=== PATIENT | female | born 1945 | race Caucasian/White ===

== ENCOUNTER → 2016-03-05 | Outpatient (CLI) | payer OTHER ==
[~2016-03-05] VITALS: Ht 154.9 cm; Wt 68.0 kg
[~2016-03-05] MED LIST: ACCURETIC 20-11 EACH PO; ACETAMINOPHEN325 M1 PO; AMBIEN 5 MG TABL5 MG PO; B-12250 MCG PO; CELEBREX PO; CLONIDINE0.1 PO; COLCHICINE 0.60.6 M1 PO; CYMBALTA60 MG PO; DETROL LA4 MG PO; ENABLEX15 MG PO; ENDOCET 7.5-321 EACH PO; FLONASE 0.05%50 MCG NASAL; HYDRALAZINE 5050 MG PO; IRON325 MG PO; KEFLEX250 MG PO; LAMICTAL 25 MG25 MG PO; LAMICTAL100 MG PO; LISINOPRIL20 MG PO; LOVAZA1000 MG PO; LYRICA25 MG PO; MELATONIN3 MG PO; MINOXIDIL2.5 MG PO; MS CONTIN15 MG PO; MULTIVITAMINS1 EAC7 PO; MYRBETRIQ50 MG PO; OPANA ER5 M1 PO; OXYCONTIN10 M1 PO; OXYCONTIN10 MG PO; PREDNISONE 1 MG1 M1 PO; PROTONIX40 M2 PO; TOPROL XL25 MG PO; TRICOR145 MG PO; VITAMIN D-32000 UNIT PO; VOLTAREN GEL 1100 G1 TOP; ZETIA10 MG PO
--- NOTE | ~2016-03-05 | HPC ---
[facility] [place] [address] PAIN MANAGEMENT CONSULTATION Name: SABIHA CASTELLANOS Room #: REG FRANKIE Melvina#: [id number] Admission: 03/05/16 Attend Phys: Marquise Robbins DO Discharge: Date of : 46 Report #: [id number] THIS REPORT FOR: //name// CC: Rusty Robbins DATE OF SERVICE: 03/05/2016 The patient is delightful 70-year-old female typically treated for bilateral (bipedal) neuropathic pain, component of DJD affecting knees requiring complex medication management. She has been remarkably stable on baseline medication including OxyContin 10 mg b.i.d. and Lyrica 25 mg at at bedtime. At last visit 12/29/2015, we continued the patient on baseline medication. Returns to pain clinic today. We did have moderately prolonged visit from 12:50-13:20 reviewing recent issues. She had fallen recently, she is legally blind and had simply opened a drawer, turned around and forgot about the drawer, tripped over. She unfortunately had some significant trauma contacting her left hip, leg and shoulder. While she did fall to the ground, she had a significant twisting injury secondary to a "near fall" and has mostly muscle thigh pain. She is very sensitive to multiple medications including CYMBALTA, STATINS, CODEINE, INDOMETHACIN, FENTANYL and PLAVIX. She tells me she has tried tizanidine in the past with some untoward events, but she is not sure what it was. She notes pain is modestly elevated today. Rates it a 5 on a 0-10 visual analog scale again noting a chronic bipedal neuropathy and ongoing left hip and upper back pain. She notes she did have a prior slight exacerbation of her chronic sciatica for which she had increased her prednisone. She does take Cymbalta on a daily basis. Prednisone she has the ability to flex, currently taking 2 mg tablets 1 in the morning, 1 at evening, she had increase this to up to 10 mg recently and had weaned back down. PHYSICAL EXAMINATION: Shows 70-year-old female. As noted, she is legally blind. She does have some focal small visual field. BMI is 28.4 kilograms per meter squared. Blood pressure is modestly elevated 160/77, pulse 67, respirations are 14. Hyperpathia about the lower extremities. Dorsiflexion, plantarflexion is limited. Lower extremity extension is limited. Hip flexion on the left exacerbates axial back pain, primarily in the left flank area, also has some left gluteal pain. Gait is modestly antalgic, somewhat ataxic. Diffuse tenderness across the low back. ASSESSMENT: Chronic bipedal neuropathy, degenerative joint disease affecting knees requiring complex medication management, acute exacerbation of axial back pain with a component of muscle spasm. [address] [address] PAIN MANAGEMENT CONSULTATION Name: SABIHA CASTELLANOS Room #: REG FRANKIE Hein#: [id number] Admission: 03/05/16 Attend Phys: Marquise Robbins DO Discharge: Date of : 46 Report #: [id number] RECOMMENDATIONS: We talked about muscle relaxants though she is sensitive to some of the medications, has failed multiple muscle relaxants in the past. We elected to simply continue baseline medication unchanged including a prior prescribed Cymbalta and prednisone. I will continue OxyContin 10 mg b.i.d. Follow up in 2 months for reevaluation. We reviewed the fact that opiate medications are being used to provide analgesia adequate to support activities of daily living, not attempting to achieve a specific pain score on the 0-10 Visual Analog Scale. The current opiate medications are providing sufficient analgesia to allow the patient to participate in activities of daily living. The patient is not exhibiting any aberrant behavior suggestive of drug diversion. The patient is not having any adverse reactions to medications. The patient is not suffering from daytime somnolence or mental acuity changes. The patient is managing opiate-induced constipation with appropriate bnfy-kbd-stzrozu agents and dietary considerations. The patient was counseled on concern for caution with operating a motor vehicle while using opiate medications. A physical exam was performed and the patient's functional status was evaluated. All patients with back pain were advised against the bed rest greater than 4 days and were advised to return to normal activities. Pain score assessment was noted and the treatment plan was reviewed with the patient. All current medications, both prescribed and OTC were reviewed and reconciled on the electronic medical record. Tobacco screening was accomplished and smoking cessation was advised when indicated. BMI was noted and diet/exercise modification was recommended for all patients following outside normal parameters. I reviewed with the patient today their responsibilities to safeguard prescription medications, reviewed their responsibility to utilize medications only as prescribed by the physician. They are to seek and receive pain medications only from 1 physician group ([facility]). They are to use 1 pharmacy and keep the clinic informed if they change pharmacies. Their responsibilities include making followup visits in a timely fashion and to avoid abrupt discontinuation of medication usage. Their responsibilities further include bringing their medications (bottles from the pharmacy with residual pills) to the visit for possible confirmation of pill counts and the patient understands it is their responsibility to submit to random drug screens to ensure both that the medications prescribed are present, and that no other controlled substances are present. All prescriptions provided today were generated electronically. [address] [place] [address] PAIN MANAGEMENT CONSULTATION Name: SABIHA CASTELLANOS Room #: REG FRANKIE Hein#: [id number] Admission: 03/05/16 Attend Phys: Marquise Robbins DO Discharge: Date of : 46 Report #: [id number] Discharged in good and stable condition after prolonged visit from 12:50-13:20; greater than 50% of 30-minute visit was spent counseling the patient. <ELECTRONICALLY SIGNED> By: Marquise Robbins DO 03/12/16 0858 1627 1856 Marquise Robbins DO /nt
[2016-03-05 12:43] VITALS: BP 160/77
== END | disposition home or self-care (01) ==
LOC: PAIN 06:49
DX: M17.0 Bilateral primary osteoarthritis of knee (principal); M54.9 Dorsalgia, unspecified; M62.838 Other muscle spasm; M79.7 Fibromyalgia; M19.90 Unspecified osteoarthritis, unspecified site

== ENCOUNTER → 2016-06-28 | Outpatient (CLI) | payer OTHER ==
[~2016-06-28] VITALS: Ht 154.9 cm; Wt 70.3 kg
[~2016-06-28] MED LIST changes: +PREDNISONE 5 MG5 MG PO
--- NOTE | ~2016-06-28 | HPC ---
[facility] [place] [address] [place] [address] PAIN MANAGEMENT CONSULTATION Name: SABIHA CASTELLANOS Room #: REG [facility] Melvina#: [id number] Admission: 06/28/16 Attend Phys: Marquise Robbins DO Discharge: Date of : 46 Report #: [id number] THIS REPORT FOR: //name// CC: Rusty Robbins The patient is a delightful 70-year-old female being treated for bilateral lower extremity peripheral neuropathy with a burning sensation in her feet. She requires complex medication management. She has been stable for quite some time on OxyContin 10 mg b.i.d. Lyrica very low dose at 25 mg at bedtime. Last seen in the pain clinic 05/04/2016. Last urine drug screen was approximately 1 year ago. Returns to pain clinic today. She had some acute right ankle pain in the interval since we last saw her. Interestingly, she had some left (contralateral) foot pain due to ankle strain at the last visit. Ultimately, right ankle required workup with orthopedist, who did order a CT of the ankle. This did note concern for a stress fracture. The patient has a followup appointment with the orthopedist next week. She notes that they talked about "bone spur" on her foot. I did spend some time today talking about bone spurs in general. Many people have been typically, they are not painful. If we can avoid surgery, certainly encourage that. She has a history of RSD and we are concerned that surgery may exacerbate the RSD. Discussion with the patient today about therapeutic options, she is doing well on current medications. We have elected to simply continue OxyContin 10 mg b.i.d., Voltaren gel topically, Lyrica at bedtime. We reviewed the fact that opiate medications are being used to provide analgesia adequate to support activities of daily living, not attempting to achieve a specific pain score on the 0-10 Visual Analog Scale. The current opiate medications are providing sufficient analgesia to allow the patient to participate in activities of daily living. The patient is not exhibiting any aberrant behavior suggestive of drug diversion. The patient is not having any adverse reactions to medications. The patient is not suffering from daytime somnolence or mental acuity changes. The patient is managing opiate-induced constipation with appropriate uyuu-lwt-nwpmiif agents and dietary considerations. The patient was counseled on concern for caution with operating a motor vehicle while using opiate medications. A physical exam was performed and the patient's functional status was evaluated. All patients with back pain were advised against the bed rest greater than 4 days and were advised to return to normal activities. Pain score assessment was noted and the treatment plan was reviewed with the patient. All current medications, both prescribed and OTC [place] [address] PAIN MANAGEMENT CONSULTATION Name: SABIHA CASTELLANOS Room #: REG CLMarques Hein#: [id number] Admission: 06/28/16 Attend Phys: Marquise Robbins DO Discharge: Date of : 46 Report #: [id number] electronic medical record. Tobacco screening was accomplished and smoking cessation was advised when indicated. BMI was noted and diet/exercise modification was recommended for all patients following outside normal parameters. I reviewed with the patient today their responsibilities to safeguard prescription medications, reviewed their responsibility to utilize medications only as prescribed by the physician. They are to seek and receive pain medications only from 1 physician group ( [facility]). They are to use 1 pharmacy and keep the clinic informed if they change pharmacies. Their responsibilities include making followup visits in a timely fashion and to avoid abrupt discontinuation of medication usage. Their responsibilities further include bringing their medications (bottles from the pharmacy with residual pills) to the visit for possible confirmation of pill counts and the patient understands it is their responsibility to submit to random drug screens to ensure both that the medications prescribed are present, and that no other controlled substances are present. All prescriptions provided today were generated electronically. We asked the patient for urine drug screen today. She could not avoid. Again, very low index for suspicion for diversion. Simply trying to comply with an opiate consent to treat contract. We will get a urine drug screen at next visit. Discharged in good and stable condition. <ELECTRONICALLY SIGNED> By: Marquise Robbins DO 06/29/16 1308 0705 0821 Marquise Robbins DO /nt
[2016-06-28 13:28] VITALS: BP 127/69
== END | disposition home or self-care (01) ==
LOC: PAIN 07:28
DX: G62.9 Polyneuropathy, unspecified (principal); M25.571 Pain in right ankle and joints of right foot; M19.90 Unspecified osteoarthritis, unspecified site; M79.7 Fibromyalgia

== ENCOUNTER → 2016-08-09 | Outpatient (CLI) | payer OTHER ==
[~2016-08-09] VITALS: Ht 154.9 cm; Wt 72.1 kg
--- NOTE | ~2016-08-09 | HPC ---
[facility] [place] [address] [place] [address] PAIN MANAGEMENT CONSULTATION Name: SABIHA CASTELLANOS Room #: REG [facility].#: [id number] Admission: 08/09/16 Attend Phys: Marquise Robbins DO Discharge: Date of : 46 Report #: [id number] THIS REPORT FOR: //name// CC: Rusty Robbins The patient is a 71-year-old female well known to the pain clinic, being treated for neuropathic pain, bilateral feet requiring complex medication management, last seen in pain clinic 2 months ago. She had a stress fracture in her right foot with some exacerbation of pain. This was treated conservatively with nonweightbearing for several weeks and it has resolved. She is actually doing reasonably well at present. Notes her pain is generally well controlled, rates it at 2 on a 0-10 visual analog scale. She does note; however, recently she is having some increasing sedation. No other changes in medications. Physical exam shows a 71-year-old female, BMI is 30.1 kilograms per meter squared. Blood pressure is 137/68, pulse is 69, respirations of 15. Alert and oriented to person, place and time, judged to be a reasonable historian. Cranial nerves 2-12 are grossly intact, though she has profound decreased visual acuity. Upper extremity strength is preserved. Gait is modestly antalgic, uses a walker. Hyperpathia, allodynia about both feet and lower extremities. History of spina bifida, polio, arthritis, and fibromyalgia. Medication list was reviewed and reconciled, has been stable on Lyrica, extremely low dose 25 mg at bedtime, uses prednisone 5 mg b.i.d. for some chronic arthritic issues. She is osteoporotic and uses Prolia; gastroesophageal reflux for which she takes Protonix; hypertension for which she takes lisinopril and metoprolol along with hydralazine. We are using some Voltaren gel topically, she uses this sparingly, does not require prescription for same. Tricor for dyslipidemia and Lamictal for seizure disorder. We reviewed the opiate consent to treat contract, the patient has not had a urine drug screen in some time. She kindly gave us a urine screen today. No aberrant behavior suggestive for drug diversion, simply complying with our opiate consent to treat contract. ASSESSMENT: Symptomatic neuropathic pain, bilateral feet requiring complex medication management, stable on baseline medications. RECOMMENDATIONS: 1. As noted above, urine drug screen today. 2. Continue low dose oxycodone (OxyContin 10 mg b.i.d. I have taken the liberty of writing for 2 months of current medication, continue Voltaren gel topically rarely use p.r.n. and Lyrica 25 mg at bedtime. She does not require prescriptions for either of the latter 2 medications. The patient is going to follow up with Dr. Aviles. Actually, she has an [address] [address] PAIN MANAGEMENT CONSULTATION Name: SABIHA CASTELLANOS Room #: REG FRANKIE Hein#: [id number] Admission: 08/09/16 Attend Phys: Marquise Robbins DO Discharge: Date of : 46 Report #: [id number] appointment for tomorrow. I did ask that if she has any lab work, forward it to us. Again, no changes in medication likely responsible for her increasing sedation. Physical exam is fairly unremarkable at this time, may be a component of adrenal suppression due to assisted opiate use (again fairly low dose at 30 mg of morphine equivalence a day), may be other abnormalities including hypothyroidism. The patient was discharged in good and stable condition. We had a moderately prolonged visit today seen from 12:43 to 13:10. Discharged in good and stable condition after a 25+ minute visit, greater than 50% of time spent counseling the patient. <ELECTRONICALLY SIGNED> By: Marquise Robbins DO 08/13/16 0856 1259 1846 Marquise Robbins DO /nt
[2016-08-09 12:40] VITALS: BP 137/68
== END | disposition home or self-care (01) ==
LOC: PAIN 06:43
DX: M79.672 Pain in left foot (principal); M79.671 Pain in right foot; M19.90 Unspecified osteoarthritis, unspecified site; M79.7 Fibromyalgia; I10 Essential (primary) hypertension; K21.9 Gastro-esophageal reflux disease without esophagitis; E78.5 Hyperlipidemia, unspecified; G40.909 Epilepsy, unspecified, not intractable, without status epilepticus; Z98.890 Other specified postprocedural states; Z88.8 Allergy status to other drugs, medicaments and biological substances; Z86.12 Personal history of poliomyelitis; Z79.899 Other long term (current) drug therapy

== ENCOUNTER → 2016-10-25 | Outpatient (CLI) | payer OTHER ==
[~2016-10-25] VITALS: Ht 154.9 cm; Wt 71.7 kg
[~2016-10-25] MED LIST changes: +CLIMARA1 EAC3
--- NOTE | ~2016-10-25 | HPC ---
[facility] [place] [address] [place] [address] PAIN MANAGEMENT CONSULTATION Name: SABIHA CASTELLANOS [facility] [id number] Admission: 10/25/16 Attend Phys: Marquise Robbins DO Discharge: Date of : 46 Report #: [id number] THIS REPORT FOR: //name// CC: Rusty Robbins The patient is a 71-year-old female, long known to pain clinic, being treated for RSD of right lower extremity neuropathic pain requiring complex medication management. She has been stable on baseline medications for quite some time. Last urine drug screen on 08/09/2016 was positive for prescribed medications. She uses OxyContin 10 mg b.i.d. with Lyrica 25 mg at bedtime. Returns to pain clinic today. Long discussion with the patient today, she prior had right lower extremity shingles long time ago. She tells me she did have a new outbreak of shingles on the contralateral side in a different distribution. It appears to be more in the left L1. Fortunately, there are no sequelae here. She was treated with appropriate antivirals. She does, however, have some paresthesia and a feeling of bugs crawling on the right lower leg lateral aspect, this is the area where her initial shingles outbreak had been many years ago. Does have RSD in the right foot, but again this has been quite stable. PHYSICAL EXAMINATION: Today is relatively unchanged, a 71-year-old female, legally blind. BMI is 29.9 kg/m2. Vital signs are stable. Rises from chair using armrest. Gait is a little bit antalgic and somewhat ataxic. Again, the patient is blind. I detect no obvious lesions in the area of her most recent distribution of shingles (left L1). She does have a little bit of cosmetic defect at the base of her spine over her old spina bifida. Does have some paresthesia and loss of 2-point discrimination at the lateral aspect of the right leg. We discussed her RSD and neuropathic pain concerns with what appears to be a little exacerbation of the initial shingles in the right L4 distribution, suggest the patient consider increasing Lyrica. She lives in a nursing home facility where they distribute her medications. I have elected to write for a flexible dose of her Lyrica 25 mg 1 or 2 tablets at bedtime. She can go back and forth with the dosing as needed if it causes untoward cognitive changes with simply continuing with 25 mg. If it does not afford any increased relief of paresthesia in the right lower extremity, we will go back to 25 as well. Otherwise, continue the OxyContin unchanged. I have taken the liberty of writing for 2 months of current medications. Discharged in good and stable condition, today is actually a little bit of a longer visit with the patient today discussing interval health changes including the acute exacerbation of left L1 shingles. Seen for approximately 25 minutes, [address] [address] PAIN MANAGEMENT CONSULTATION Name: SABIHA CASTELLANOS Room #: REG Marques Hein#: [id number] Admission: 10/25/16 Attend Phys: Marquise Robbins DO Discharge: Date of : 46 Report #: [id number] discharged in good and stable condition. Greater than 50% of the 25-minute visit was spent in counseling the patient. By: [id number] Marquise Robbins DO /nt
[2016-10-25 12:58] VITALS: BP 137/68
== END | disposition home or self-care (01) ==
LOC: PAIN 07:33
DX: G90.521 Complex regional pain syndrome I of right lower limb (principal); Z79.899 Other long term (current) drug therapy

== ENCOUNTER → 2016-12-20 | Outpatient (CLI) | payer OTHER ==
[~2016-12-20] VITALS: Ht 154.9 cm; Wt 70.8 kg
[~2016-12-20] MED LIST changes: +CARAFATE 1 GM TA1 G1 PO
--- NOTE | ~2016-12-20 | HPC ---
[facility] [address] [place] [address] PAIN MANAGEMENT CONSULTATION Name: SABIHA CASTELLANOS Room #: REG Marques Hein#: [id number] Admission: 12/20/16 Attend Phys: Marquise Robbins DO Discharge: Date of : 46 Report #: [id number] THIS REPORT FOR: //name// CC: Rusty Robbins DATE OF SERVICE: 12/20/2016 The patient is a 71-year-old female being treated for RSD, bilateral lower extremities, right greater than left, requiring high-risk complex medication management. She has been stable for quite some time on Lyrica 25 mg at bedtime and OxyContin 10 mg b.i.d. Last visit, 10/25/2016. She had what she said chronic right L4-L5 shingles, although she had somewhat of a new presentation of left L1 shingle and this fortunately resolved. Returns to pain clinic today, noting that medications generally are providing sufficient analgesia to participate in activities of daily living. Primary concern is she is having significant gastroesophageal reflux. She follows with Dr. 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 She was a little hesitant to move forward, concerned about postoperative pain. We had a long discussion today about pain management. She has been stable on OxyContin 10 mg b.i.d. I think for breakthrough pain, oxycodone 5 mg 3-4 times a day would certainly be reasonable, and I strongly encouraged her to follow through with her organisational psychologist's suggestions. We will be happy to assist with postoperative management if needed. We reviewed the fact that opiate medications are being used to provide analgesia adequate to support activities of daily living, not attempting to achieve a specific pain score on the 0-10 Visual Analog Scale. The current opiate medications are providing sufficient analgesia to allow the patient to participate in activities of daily living. The patient is not exhibiting any aberrant behavior suggestive of drug diversion. The patient is not having any adverse reactions to medications. The patient is not suffering from daytime somnolence or mental acuity changes. The patient is managing opiate-induced constipation with appropriate rkas-uxf-rncltsi agents and dietary considerations. The patient was counseled on concern for caution with operating a motor vehicle while using opiate medications. A physical exam was performed and the patient's functional status was evaluated. All patients with back pain were advised against the bed rest greater than 4 days and were advised to return to normal activities. Pain score assessment was noted and the treatment plan was reviewed with the patient. All current medications, both prescribed and OTC were reviewed and reconciled on the [address] [address] PAIN MANAGEMENT CONSULTATION Name: SABIHA CASTELLANOS Room #: REG [facility] Melvina#: [id number] Admission: 12/20/16 Attend Phys: Marquise Robbins DO Discharge: Date of : 46 Report #: [id number] electronic medical record. Tobacco screening was accomplished and smoking cessation was advised when indicated. BMI was noted and diet/exercise modification was recommended for all patients following outside normal parameters. I reviewed with the patient today their responsibilities to safeguard prescription medications, reviewed their responsibility to utilize medications only as prescribed by the physician. They are to seek and receive pain medications only from 1 physician group ( [facility]). They are to use 1 pharmacy and keep the clinic informed if they change pharmacies. Their responsibilities include making followup visits in a timely fashion and to avoid abrupt discontinuation of medication usage. Their responsibilities further include bringing their medications (bottles from the pharmacy with residual pills) to the visit for possible confirmation of pill counts and the patient understands it is their responsibility to submit to random drug screens to ensure both that the medications prescribed are present, and that no other controlled substances are present. All prescriptions provided today were generated electronically. ASSESSMENT: Reflex sympathetic dystrophy, bilateral lower extremities, right greater than left. History of myofascial-type pain syndrome, requiring high-risk complex medication management, now management compounded by co-diagnosis of Liu esophagitis. We spent about 25 minutes today reviewing current issues and concerns and discussing therapeutic options moving forward. The patient was seen from 1318 to 5. Discharged in good and stable condition. I have elected to continue baseline medication unchanged, OxyContin 10 mg b.i.d. and Lyrica 25 mg at bedtime. We will have her simply followup in 2 months for reevaluation. I will be happy to see her on an as needed basis if she moves forward with Liu esophagitis surgery, though she is leaning towards simply having a repeat upper gastrointestinal in 3 months. <ELECTRONICALLY SIGNED> By: Marquise Robbins DO 12/21/16 0654 1533 0051 Marquise Robbins DO /nt
[2016-12-20 12:56] VITALS: BP 124/63
== END ==
LOC: PAIN 07:50
DX: G90.523 Complex regional pain syndrome I of lower limb, bilateral (principal)

== ENCOUNTER → 2017-02-08 | Outpatient (CLI) | payer OTHER ==
[~2017-02-08] VITALS: Ht 154.9 cm; Wt 71.2 kg
[~2017-02-08] MED LIST changes: +OXYCODONE H5 MG/5 ML PO
--- NOTE | ~2017-02-08 | HPC ---
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 She has had chronic shingles, right L4-L5. She has RSD bilateral lower extremities, right greater than left foot. She has been stable on very low dose OxyContin 10 mg b.i.d. with rare oxycodone 5 mg p.r.n. 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 Carpenter. Today, we did discuss at length concerns for post-procedure pain. Ultimately, OxyContin is a fairly small tablet, so I think she can continue with this. We have elected to trial short course of an oxycodone elixir 5 mg per 5 mL. Suggest a 3-5 mL t.i.d. for breakthrough pain. I have generated a prescription for 150 mL. We have also continued her OxyContin 10 mg b.i.d. for another 2 months. If following the Liu's esophagitis (procedure is for early March), she is unable to make her March appointment, I will be happy to simply leave a 30-day prescription for OxyContin 10 mg b.i.d. at the desk for her significant other to merchandise pickup/receiving associate. PHYSICAL EXAMINATION: Today is otherwise unchanged, pleasant 71-year-old female, alert and oriented to person, place and time, judged to be a reasonable historian, last random drug screen 08/09/2016 was positive for prescribed medications. BMI is 29.7 kilograms per meter squared. Vital signs stable as noted in the EMR. Rises from chair using armrest, modestly antalgic gait. She is legally blind. We reviewed the fact that opiate medications are being used to provide analgesia adequate to support activities of daily living, not attempting to achieve a specific pain score on the 0-10 Visual Analog Scale. The current opiate medications are providing sufficient analgesia to allow the patient to participate in activities of daily living. The patient is not exhibiting any aberrant behavior suggestive of drug diversion. The patient is not having any adverse reactions to medications. The patient is not suffering from daytime somnolence or mental acuity changes. The patient is managing opiate-induced constipation with appropriate jmot-fpy-sajvzbh agents and dietary considerations. The patient was counseled on concern for caution with operating a motor vehicle while using opiate medications. A physical exam was performed and the patient's functional status was evaluated. All patients with back pain were advised against the bed rest greater than [address] [address] PAIN MANAGEMENT CONSULTATION Name: JASMINSABIHA Room #: REG [facility] Melvina#: [id number] Admission: 02/08/17 Attend Phys: Marquise Robbins DO Discharge: Date of : 46 Report #: [id number] days and were advised to return to normal activities. Pain score assessment was noted and the treatment plan was reviewed with the patient. All current medications, both prescribed and OTC were reviewed and reconciled on the electronic medical record. Tobacco screening was accomplished and smoking cessation was advised when indicated. BMI was noted and diet/exercise modification was recommended for all patients following outside normal parameters. I reviewed with the patient today their responsibilities to safeguard prescription medications, reviewed their responsibility to utilize medications only as prescribed by the physician. They are to seek and receive pain medications only from 1 physician group ( [facility]). They are to use 1 pharmacy and keep the clinic informed if they change pharmacies. Their responsibilities include making followup visits in a timely fashion and to avoid abrupt discontinuation of medication usage. Their responsibilities further include bringing their medications (bottles from the pharmacy with residual pills) to the visit for possible confirmation of pill counts and the patient understands it is their responsibility to submit to random drug screens to ensure both that the medications prescribed are present, and that no other controlled substances are present. All prescriptions provided today were generated electronically. <ELECTRONICALLY SIGNED> By: Marquise Robbins DO 02/13/17 0808 [id number] [id number] Marquise Robbins DO /nt
[2017-02-08 12:51] VITALS: BP 125/63
== END ==
LOC: PAIN 07:02
DX: G90.523 Complex regional pain syndrome I of lower limb, bilateral (principal); M79.2 Neuralgia and neuritis, unspecified

== ENCOUNTER → 2017-03-28 | Outpatient (CLI) | payer OTHER ==
[~2017-03-28] VITALS: Ht 154.9 cm; Wt 69.9 kg
[~2017-03-28] MED LIST changes: +AZO BLADDER CO300 MG PO; +NORVASC5 MG PO
--- NOTE | ~2017-03-28 | HPC ---
[facility] [place] [address] PAIN MANAGEMENT CONSULTATION Name: SABIHA CASTELLANOS Room #: [facility] [id number] Admission: 03/28/17 Attend Phys: Marquise Robbins DO Discharge: Date of : 46 Report #: [id number] THIS REPORT FOR: //name// CC: Rusty Robbins The patient is a 71-year-old female, long treated for symptomatic neuropathic pain, bilateral feet requiring high risk complex medication management. Last seen in pain clinic 02/08/2017, continued on baseline medication including low dose Lyrica 25 mg at bedtime, higher doses have caused cognitive impairment. OxyContin 10 mg b.i.d. She has done well with this current medication. 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 Torres. Concerned that she may have some increased pain. We suggested oxycodone elixir as she was having trouble swallowing. I did give her that prescription. She is planning on proceeding with that procedure next week. Last random drug screen 07/30/2016 was positive for prescribed medications. We reviewed the fact that opiate medications are being used to provide analgesia adequate to support activities of daily living, not attempting to achieve a specific pain score on the 0-10 Visual Analog Scale. The current opiate medications are providing sufficient analgesia to allow the patient to participate in activities of daily living. The patient is not exhibiting any aberrant behavior suggestive of drug diversion. The patient is not having any adverse reactions to medications. The patient is not suffering from daytime somnolence or mental acuity changes. The patient is managing opiate-induced constipation with appropriate okua-tvg-hezgyxz agents and dietary considerations. The patient was counseled on concern for caution with operating a motor vehicle while using opiate medications. A physical exam was performed and the patient's functional status was evaluated. All patients with back pain were advised against the bed rest greater than 4 days and were advised to return to normal activities. Pain score assessment was noted and the treatment plan was reviewed with the patient. All current medications, both prescribed and OTC were reviewed and reconciled on the electronic medical record. Tobacco screening was accomplished and smoking cessation was advised when indicated. BMI was noted and diet/exercise modification was recommended for all patients following outside normal parameters. I reviewed with the patient today their responsibilities to safeguard prescription medications, reviewed their responsibility to utilize medications only as prescribed by the physician. They are to seek and receive pain medications only from 1 physician group ( [facility]). They are to use 1 pharmacy and keep the clinic informed if they change pharmacies. Their [address] [address] PAIN MANAGEMENT CONSULTATION Name: SABIHA CASTELLANOS Room #: REG Mar[facility] Hein#: [id number] Admission: 03/28/17 Attend Phys: Marquise Robbins DO Discharge: Date of : 46 Report #: [id number] responsibilities include making followup visits in a timely fashion and to avoid abrupt discontinuation of medication usage. Their responsibilities further include bringing their medications (bottles from the pharmacy with residual pills) to the visit for possible confirmation of pill counts and the patient understands it is their responsibility to submit to random drug screens to ensure both that the medications prescribed are present, and that no other controlled substances are present. All prescriptions provided today were generated electronically. The patient returns to pain clinic today noting that neuropathic pain continues to be problematic, but well controlled with current medication. She does have a new complaint. Having ongoing radicular symptoms of neck, right shoulder and arm. It has actually been going on for a couple of months, seems to be getting worse. She has tried conservative therapy without efficacy. PHYSICAL EXAMINATION: Shows BMI of 29.1 kilograms per meter squared. Cervical range of motion is modestly limited. Positive Lhermitte's, radicular symptoms radiating into the right arm and shoulder, slight decreased right triceps strength, paresthesia in the C7-C8 distribution. She has not fallen in the last 3 months. She does use a walker. She is hypertensive, medicines were reconciled today. Opiate consent to treat contract was signed 11/03/2015. The patient does not use tobacco products. The patient has an MRI scheduled from Dr. Aviles of cervical spine next week. ASSESSMENT: 1. Symptomatic neuropathic pain, bilateral feet requiring high risk complex medication management, stable on baseline medication. Continue current medication unchanged, OxyContin 10 mg b.i.d. with Lyrica 25 mg at bedtime. 2. Acute exacerbation of cervical radiculopathy. RECOMMENDATION: We will seek authorization for cervical epidural injection under fluoroscopy next visit. Correlate with MRI findings. In total, the patient was seen for greater than 25 minutes, greater than 50% of this time spent counseling the patient. <ELECTRONICALLY SIGNED> By: Marquise Robbins DO 04/01/17 0715 0946 [id number] Marquise Robbins DO /nt
[2017-03-28 12:41] VITALS: BP 125/65
== END ==
LOC: PAIN 06:50
DX: M79.671 Pain in right foot (principal); M79.672 Pain in left foot; M54.12 Radiculopathy, cervical region; Z79.899 Other long term (current) drug therapy

== ENCOUNTER → 2017-04-29 | Outpatient (CLI) | payer OTHER ==
[~2017-04-29] VITALS: Ht 154.9 cm; Wt 68.8 kg
--- NOTE | ~2017-04-29 | HPC ---
[facility] [address] [place] [address] PAIN MANAGEMENT CONSULTATION Name: SABIHA CASTELLANOS Room #: REG [facility] Melvina#: [id number] Admission: 04/29/17 Attend Phys: Marquise Robbins DO Discharge: Date of : 46 Report #: [id number] THIS REPORT FOR: //name// CC: Rusty Robbins HISTORY OF PRESENT ILLNESS: The patient is a pleasant 71-year-old female typically treated for bipedal neuropathy, requiring complex medication management. At last visit on 03/28/2017, she was having ongoing radicular symptoms and we sought authorization for cervical epidural injection under fluoroscopy. MRI of cervical spine from 04/02/2017 notes neural foraminal narrowing bilaterally at C5-C6 with right greater than left neural foraminal narrowing at C6-C7. ASSESSMENT: Symptomatic cervical radiculopathy by clinical exam and history. The patient with ongoing bipedal neuropathy, stable with low dose of Lyrica 25 mg at bedtime and oxycodone extended release 10 mg b.i.d. 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 ASSESSMENT: Symptomatic cervical radiculopathy by clinical exam and history, ongoing cervical radicular symptoms with right C7 radicular paresthesia. RECOMMENDATION: Proceed with epidural injection under fluoroscopy today. I did renew the patient's complex medication management including OxyContin 10 mg b.i.d. and Lyrica 25 mg at bedtime. We reviewed the fact that opiate medications are being used to provide analgesia adequate to support activities of daily living, not attempting to achieve a specific pain score on the 0-10 Visual Analog Scale. The current opiate medications are providing sufficient analgesia to allow the patient to participate in activities of daily living. The patient is not exhibiting any aberrant behavior suggestive of drug diversion. The patient is not having any adverse reactions to medications. The patient is not suffering from daytime somnolence or mental acuity changes. The patient is managing opiate-induced constipation with appropriate gfsn-ugd-fjdturr agents and dietary considerations. The patient was counseled on concern for caution with operating a motor vehicle while using opiate medications. A physical exam was performed and the patient's functional status was evaluated. All patients with back pain were advised against the bed rest greater than 4 days and were advised to return to normal activities. Pain score assessment was noted and the treatment plan was reviewed with the patient. All current medications, both prescribed and OTC were reviewed [place] [address] PAIN MANAGEMENT CONSULTATION Name: SABIHA CASTELLANOS Room #: REG [facility].#: [id number] Admission: 04/29/17 Attend Phys: Marquise Robbins DO Discharge: Date of : 46 Report #: [id number] electronic medical record. Tobacco screening was accomplished and smoking cessation was advised when indicated. BMI was noted and diet/exercise modification was recommended for all patients following outside normal parameters. I reviewed with the patient today their responsibilities to safeguard prescription medications, reviewed their responsibility to utilize medications only as prescribed by the physician. They are to seek and receive pain medications only from 1 physician group ( [facility]). They are to use 1 pharmacy and keep the clinic informed if they change pharmacies. Their responsibilities include making followup visits in a timely fashion and to avoid abrupt discontinuation of medication usage. Their responsibilities further include bringing their medications (bottles from the pharmacy with residual pills) to the visit for possible confirmation of pill counts and the patient understands it is their responsibility to submit to random drug screens to ensure both that the medications prescribed are present, and that no other controlled substances are present. All prescriptions provided today were generated electronically. PROCEDURE: Cervical epidural injection under fluoroscopy. PROCEDURE NOTE: After written and informed consent was obtained including risk of dural puncture, spinal cord trauma, paralysis and increased pain, the patient was taken to the fluoroscopy suite and placed in the prone position, with appropriate abdominal bolstering, neck was flexed, palms under the thighs. Skin was prepped with ChloraPrep. Sterile draping was applied. Skin wheal with 1% Xylocaine was raised. A 22-gauge 3-1/2 inch epidural Tuohy needle was placed via a midline approach at the C7-T1 interspace, advanced under biplanar fluoroscopy using continuous loss of resistance. With appropriate loss of resistance at the expected depth on lateral view, the glass loss of resistance syringe was disconnected. A low volume extension tubing was connected to the needle and a 5 mL syringe. Negative aspiration for cerebrospinal fluid or blood was noted. A 1 mL of Omnipaque was injected which showed spread within the epidural space on biplanar fluoroscopy. This was followed with 80 mg of triamcinolone plus 1 mL of 1.5% preservative Xylocaine. Needle was withdrawn to the interspinous ligament, 0.5 mL of Xylocaine was used to flush the needle. The needle was then completely withdrawn. The area was cleansed. Band-Aid was applied. The patient was allowed to move off the procedure table and ambulated to the recovery room, monitored for an appropriate period of time, discharged in good and stable condition. <ELECTRONICALLY SIGNED> By: Marquise Robbins DO 05/01/17 0820 1611 1855 Marquise Robbins DO /akila
[2017-04-29 13:04] VITALS: BP 163/84
== END ==
LOC: PAIN 04-18 08:07
DX: M54.12 Radiculopathy, cervical region (principal); R26.2 Difficulty in walking, not elsewhere classified; M79.7 Fibromyalgia; M19.90 Unspecified osteoarthritis, unspecified site; Z79.891 Long term (current) use of opiate analgesic; Z88.6 Allergy status to analgesic agent; Z88.8 Allergy status to other drugs, medicaments and biological substances; Z79.899 Other long term (current) drug therapy

== ENCOUNTER → 2017-05-27 | Outpatient (CLI) | payer OTHER ==
[~2017-05-27] VITALS: Ht 154.9 cm; Wt 68.9 kg
[~2017-05-27] MED LIST changes: -AZO BLADDER CO300 MG PO; -NORVASC5 MG PO
--- NOTE | ~2017-05-27 | HPC ---
[facility] [place] [address] PAIN MANAGEMENT CONSULTATION Name: SABIHA CASTELLANOS [facility] [id number] Admission: 05/27/17 Attend Phys: Marquise Robbins DO Discharge: Date of : 46 Report #: [id number] THIS REPORT FOR: //name// CC: Rusty Robbins The patient is a pleasant 71-year-old female, long treated for bipedal neuropathy, requiring complex medication management, stable on low dose Lyrica 25 mg at bedtime along with OxyContin 10 mg b.i.d. She developed radicular symptoms affecting neck, right shoulder and arm and a classic C7 radiculopathy. We proceeded with cervical epidural injection at last visit on 04/29/2017. She returns to pain clinic today noting some 70% improvement following that injection, but still has episodic paresthesia radiating into the arm and shoulder. Rates the pain as 6-7 on a VAS. Chronic bipedal neuropathy remains the same. No problems with current medications, i.e., no daytime somnolence, mental acuity changes, nor constipation. We reviewed the fact that opiate medications are being used to provide analgesia adequate to support activities of daily living, not attempting to achieve a specific pain score on the 0-10 Visual Analog Scale. The current opiate medications are providing sufficient analgesia to allow the patient to participate in activities of daily living. The patient is not exhibiting any aberrant behavior suggestive of drug diversion. The patient is not having any adverse reactions to medications. The patient is not suffering from daytime somnolence or mental acuity changes. The patient is managing opiate-induced constipation with appropriate xcqu-cbq-ejuhlwx agents and dietary considerations. The patient was counseled on concern for caution with operating a motor vehicle while using opiate medications. A physical exam was performed and the patient's functional status was evaluated. All patients with back pain were advised against the bed rest greater than 4 days and were advised to return to normal activities. Pain score assessment was noted and the treatment plan was reviewed with the patient. All current medications, both prescribed and OTC were reviewed and reconciled on the electronic medical record. Tobacco screening was accomplished and smoking cessation was advised when indicated. BMI was noted and diet/exercise modification was recommended for all patients following outside normal parameters. I reviewed with the patient today their responsibilities to safeguard prescription medications, reviewed their responsibility to utilize medications only as prescribed by the physician. They are to seek and receive pain [address] [address] PAIN MANAGEMENT CONSULTATION Name: SABIHA CASTELLANOS Room #: REG [facility] Melvina#: [id number] Admission: 05/27/17 Attend Phys: Marquise Robbins DO Discharge: Date of : 46 Report #: [id number] medications only from 1 physician group ( [facility]). They are to use 1 pharmacy and keep the clinic informed if they change pharmacies. Their responsibilities include making followup visits in a timely fashion and to avoid abrupt discontinuation of medication usage. Their responsibilities further include bringing their medications (bottles from the pharmacy with residual pills) to the visit for possible confirmation of pill counts and the patient understands it is their responsibility to submit to random drug screens to ensure both that the medications prescribed are present, and that no other controlled substances are present. All prescriptions provided today were generated electronically. PHYSICAL EXAMINATION: Shows a 71-year-old female, BMI is 28.7 kilograms per meter squared. Blood pressure is 149/80, pulse 71, respirations 14. Cervical range of motion is limited. Positive Lhermitte's. Pain goes into the right shoulder. Right triceps strength is decreased about 3/5. All other muscle groups in the right arm and all in the left arm were 4/5 to objective testing. Deep tendon reflexes are symmetric. Tinel's is negative. Rises from chair using armrest. Uses a walker for balance and to offload some weight from feet with ongoing neuropathic pain. Lower extremities well treated with current medications. ASSESSMENT: 1. Bipedal neuropathy, requiring complex medication management. 2. Acute cervical radiculopathy symptoms significantly improved following initial injection, but symptoms are still problematic, we will repeat epidural injection under fluoroscopy today. RECOMMENDATIONS: 1. Renew OxyContin 10 mg b.i.d., taken the liberty of writing for 2 months of current medication, does not require renewal of Lyrica. 2. We reviewed the random drug screen of 08/09/2016, positive for prescribed medications. Follow up in 2 months for reevaluation. PROCEDURE: Cervical epidural injection under fluoroscopy. PROCEDURE NOTE: After written and informed consent was obtained including risk of dural puncture, spinal cord trauma, paralysis and increased pain, the patient was taken to the fluoroscopy suite and placed in the prone position, with appropriate abdominal bolstering, neck was flexed, palms under the thighs. Skin was prepped with ChloraPrep. Sterile draping was applied. Skin wheal with 1% Xylocaine was raised. A 22-gauge 3-1/2 inch epidural Tuohy needle was placed via a midline approach at the C7-T1 interspace, advanced under biplanar fluoroscopy using continuous loss of resistance. With appropriate loss of resistance at the expected depth on lateral view, the glass loss of resistance syringe was disconnected. A low volume extension tubing was connected to the needle and a 5 mL syringe. Negative aspiration for cerebrospinal fluid or blood [facility] [address] [place] [address] PAIN MANAGEMENT CONSULTATION Name: JASMINSABIHA M Room #: REG [facility]#: [id number] Admission: 05/27/17 Attend Phys: Marquise Robbins DO Discharge: Date of : 46 Report #: [id number] was noted. A 1 mL of Omnipaque was injected which showed spread within the epidural space on biplanar fluoroscopy. This was followed with 80 mg of triamcinolone plus 1 mL of 1.5% preservative Xylocaine. Needle was withdrawn to the interspinous ligament, 0.5 mL of Xylocaine was used to flush the needle. The needle was then completely withdrawn. The area was cleansed. Band-Aid was applied. The patient was allowed to move off the procedure table and ambulated to the recovery room, monitored for an appropriate period of time, discharged in good and stable condition. <ELECTRONICALLY SIGNED> By: Marquise Robbins DO 06/03/17 0738 [id number] 1857 Marquise Robbins DO /nt
[2017-05-27 12:57] VITALS: BP 149/80
== END | disposition home or self-care (01) ==
LOC: PAIN 07:21
DX: M54.12 Radiculopathy, cervical region (principal); G89.29 Other chronic pain; G90.09 Other idiopathic peripheral autonomic neuropathy; Z79.891 Long term (current) use of opiate analgesic; Z98.890 Other specified postprocedural states; Z79.899 Other long term (current) drug therapy

== ENCOUNTER → 2017-09-02 | Outpatient (CLI) | payer OTHER ==
[~2017-09-02] VITALS: Ht 154.9 cm; Wt 68.9 kg
--- NOTE | ~2017-09-02 | HPC ---
[facility] [address] PAIN MANAGEMENT CONSULTATION Name: SABIHA CASTELLANOS [facility] [id number] Admission: 09/02/17 Attend Phys: Marquise Robbins DO Discharge: Date of : 46 Report #: [id number] THIS REPORT FOR: //name// CC: Rusty Robbins DATE OF SERVICE: 09/02/2017 HISTORY OF PRESENT ILLNESS: The patient is a delightful 72-year-old female, long treated for peripheral neuropathy, requiring complex medication management, more recent history of cervical radiculopathy. Last seen in the pain clinic on 06/14/2017. I did a single cervical epidural injection at that time, continue the patient on Lyrica 25 mg at bedtime and OxyContin 10 mg b.i.d. She returns to pain clinic today noting the cervical epidural injection did afford significant improvement of functional status. The patient specifically notes "95%" relief and is still doing better from the epidural injection. She is having increasing pain in her right foot. She has a history of osteoporosis. She has pain in the lateral aspect of her foot that has been present for greater than 2 months. She denies any specific antecedent trauma. Physical exam shows slightly decreased range of motion, plantar flexion, dorsiflexion and sidebending. She has a significant tenderness of the lateral aspect of the foot. There are no obvious deformities noted. Concern for a stress fracture here, I suggested she follow up with orthopedic surgeon (recommended Geraldo Beaulieu MD at [facility]). From a pain standpoint, she is doing generally well with current medications. Does have ongoing burning dysesthesia in her feet. Suggest it is a burning because take a second 25 mg Lyrica periodically. She is very sensitive with this agent and 50 mg use caused a significant cognitive impairment. She does well with the 25 mg tablet. We reviewed the fact that opiate medications are being used to provide analgesia adequate to support activities of daily living, not attempting to achieve a specific pain score on the 0-10 Visual Analog Scale. The current opiate medications are providing sufficient analgesia to allow the patient to participate in activities of daily living. The patient is not exhibiting any aberrant behavior suggestive of drug diversion. The patient is not having any adverse reactions to medications. The patient is not suffering from daytime somnolence or mental acuity changes. The patient is managing opiate-induced constipation with appropriate opox-jbt-yxvkqjg agents and dietary considerations. The patient was counseled on concern for caution with operating a motor vehicle while using opiate medications. A physical exam was performed and the patient's functional status was evaluated. All patients with back pain were advised against the bed rest greater than [address] [address] PAIN MANAGEMENT CONSULTATION Name: SABIHA CASTELLANOS Room #: REG CL Melvina#: [id number] Admission: 09/02/17 Attend Phys: Marquise Robbins DO Discharge: Date of : 46 Report #: [id number] days and were advised to return to normal activities. Pain score assessment was noted and the treatment plan was reviewed with the patient. All current medications, both prescribed and OTC were reviewed and reconciled on the electronic medical record. Tobacco screening was accomplished and smoking cessation was advised when indicated. BMI was noted and diet/exercise modification was recommended for all patients following outside normal parameters. I reviewed with the patient today their responsibilities to safeguard prescription medications, reviewed their responsibility to utilize medications only as prescribed by the physician. They are to seek and receive pain medications only from 1 physician group ( [facility]). They are to use 1 pharmacy and keep the clinic informed if they change pharmacies. Their responsibilities include making followup visits in a timely fashion and to avoid abrupt discontinuation of medication usage. Their responsibilities further include bringing their medications (bottles from the pharmacy with residual pills) to the visit for possible confirmation of pill counts and the patient understands it is their responsibility to submit to random drug screens to ensure both that the medications prescribed are present, and that no other controlled substances are present. All prescriptions provided today were generated electronically. PHYSICAL EXAMINATION: GENERAL: Otherwise unchanged, very pleasant 72-year-old female. She is legally blind. VITAL SIGNS: Stable. MUSCULOSKELETAL: Rises from chair. Uses a walker for balance. Gait is antalgic favoring the right foot. ASSESSMENT: Symptomatic neuropathic pain, bipedal requiring complex medication management, history of cervical radiculopathy, stable on baseline medication including OxyContin 10 mg b.i.d., Lyrica 25 mg at bedtime. Discussion with the patient today about therapeutic option we have elected to continue current medications unchanged. Follow up in 2 months for reevaluation. Last random drug screen 08/09/2016 was positive for prescribed medications. The patient has had no aberrant behavior suggestive for drug diversion. <ELECTRONICALLY SIGNED> By: Marquise Robbins DO 09/04/17 0734 [id number] Marquise Robbins DO /nt
[2017-09-02 12:40] VITALS: BP 127/70
== END ==
LOC: PAIN 07:58
DX: M54.12 Radiculopathy, cervical region (principal); Z79.899 Other long term (current) drug therapy

== ENCOUNTER → 2017-12-06 | Outpatient (CLI) | payer OTHER ==
[~2017-12-06] VITALS: Ht 154.9 cm; Wt 69.8 kg
[~2017-12-06] MED LIST changes: +AZO BLADDER CO300 MG PO; +NORVASC5 MG PO
--- NOTE | ~2017-12-06 | HPC ---
[facility] [address] [place] [address] PAIN MANAGEMENT CONSULTATION Name: SABIHA CASTELLANOS Room #: REG [facility]#: [id number] Admission: 12/06/17 Attend Phys: Ginger Mast Discharge: Date of : 46 Report #: [id number] THIS REPORT FOR: //name// CC: Ginger Aviles MD DICTATED BY: Ginger Mast NP DATE OF SERVICE: 12/06/2017 CHIEF COMPLAINT: Pain in her feet, knees, hips, neck and arms, for cervical radiculapathy and complex regional pain syndrome. HISTORY OF PRESENT ILLNESS: The patient is a 72-year-old very pleasant female from the pain clinic for several years as a patient of Dr. Marquise Robbins and then saw Dr. Martin Sheridan. This is my first visit with the patient. She has a history of bilateral foot pain and cervical radiculopathy. She also has reflex sympathetic dystrophy. She is treated with OxyContin and Lyrica. She is legally blind. Today, she states she is having ongoing cervical pain issues, but she does state that her OxyContin does help give her benefit. We had tried an increase in her Lyrica to help with her foot pain, but that made her very drowsy, significant somnolence and was sleeping half the day. So, she returned to her one nightly dose of Lyrica. She is here for return for renewal of her medications today. ALLERGIES: CYMBALTA, STATINS, CODEINE, ASPIRIN, BACLOFEN, HYDROCHLOROTHIAZIDE, INDOMETHACIN, FENTANYL, QUINAPRIL, AMBIEN AND PLAVIX. CURRENT MEDICATIONS: Lyrica 25 mg at bedtime; OxyContin 10 mg twice a day; diclofenac gel as needed; amlodipine 5 mg once a day; pumpkin seed extract; Carafate 1 gram 4 times a day; estradiol patch weekly; prednisone 5 mg, she actually takes two twice a day; hydralazine 50 mg as needed, blood pressure; metoprolol 25 mg once a day; mirabegron 50 mg once a day; Celebrex 100 twice a day; lisinopril 20 mg once a day; [place]-3; multivitamin; iron; Flonase as needed; vitamin B12; vitamin B3; TriCor 145 mg once a day; Protonix; Lamictal 25 mg twice a day and Zetia 10 mg once a day. PQRS: 1. The patient has a history of osteoarthritis in her hips, neck and back. Denies rheumatoid arthritis. 2. Height 5 feet 1 inch, weight 153.8. BMI is 29.1. 3. Vital signs; blood pressure 119/59, pulse of 68, respiration 14 and oxygen is 97%. 4. Pain score 4/10. [address] [address] PAIN MANAGEMENT CONSULTATION Name: SABIHA CASTELLANOS Room #: REG [facility]#: [id number] Admission: 12/06/17 Attend Phys: Ginger Mast Discharge: Date of : 46 Report #: [id number] 5. Fall risk is dizziness. Denies dizziness at this time does use a walker for her to [employer] in her walking and has not fallen in the last 3 months. 6. She denies blood thinners. 7. History of hypertension. 8. Opioid therapy is greater than 8 weeks. Therefore, opioid consent has been signed and is on the chart. 9. Risk assessment tool is low. 10. Functional assessment . 11. Recreational drug use denies. Does not use any tobacco products and no alcohol products are used. [place] and [employer] DPMD has been done on the patient, with no aberrant fills from other prescribers and is on time for her medications. PHYSICAL EXAMINATION: GENERAL: The patient is well-developed, well-nourished white female. She appears her stated age and is alert and orientated. HEENT: The patient is legally blind. Mucous membranes are moist. She has some decreased hearing. NECK: Without adenopathy. She does complain of tenderness in her neck and discomfort that radiates down both arms, more in her right side in her shoulders at this time. It does not radiate into her hands at this time. MUSCULOSKELETAL: Upper extremity muscle strength is good. She has pain and discomfort in her lower portion of her back that radiates into her right hip area. She does have pain in bilateral feet. We reviewed the fact that opiate medications are being used to provide analgesia adequate to support activities of daily living, not attempting to achieve a specific pain score on the 0-10 Visual Analog Scale. The current opiate medications are providing sufficient analgesia to allow the patient to participate in activities of daily living. The patient is not exhibiting any aberrant behavior suggestive of drug diversion. The patient is not having any adverse reactions to medications. The patient is not suffering from daytime somnolence or mental acuity changes. The patient is managing opiate-induced constipation with appropriate oaln-fwm-wtaztob agents and dietary considerations. The patient was counseled on concern for caution with operating a motor vehicle while using opiate medications. A physical exam was performed and the patient's functional status was evaluated. All patients with back pain were advised against the bed rest greater than 4 days and were advised to return to normal activities. Pain score assessment was noted and the treatment plan was reviewed with the patient. All current medications, both prescribed and OTC were reviewed and reconciled on the electronic medical record. Tobacco screening was accomplished and smoking cessation was advised when indicated. BMI was noted and diet/exercise modification was recommended for all patients following outside normal [facility] [address] [place] [address] PAIN MANAGEMENT CONSULTATION Name: SABIHA CASTELLANOS Room #: REG [facility].#: [id number] Admission: 12/06/17 Attend Phys: Ginger Mast Discharge: Date of : 46 Report #: [id number] parameters. I reviewed with the patient today their responsibilities to safeguard prescription medications, reviewed their responsibility to utilize medications only as prescribed by the physician. They are to seek and receive pain medications only from 1 physician group ( [facility]). They are to use 1 pharmacy and keep the clinic informed if they change pharmacies. Their responsibilities include making followup visits in a timely fashion and to avoid abrupt discontinuation of medication usage. Their responsibilities further include bringing their medications (bottles from the pharmacy with residual pills) to the visit for possible confirmation of pill counts and the patient understands it is their responsibility to submit to random drug screens to ensure both that the medications prescribed are present, and that no other controlled substances are present. All prescriptions provided today were generated electronically. IMPRESSION: 1. Foot pain, arm pain, neck pain and pain in the legs. 2. History of spinal stenosis and cervical radiculopathy. 3. Legally blind. 4. Hypertension. 5. Chronic regional pain syndrome of lower limbs. 6. Polyneuropathy. 7. Liu's esophagitis. 8. Carpal tunnel syndrome. 9. Osteoporosis. 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 11. Gastroesophageal reflux. 12. Bladder dysfunction. 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 14. Tinnitus. 15. Chronic migraines. 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 17. Idiopathic scoliosis. 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 PLAN: 1. Today, we discussed her medication management and it was decided to continue at her OxyContin 10 mg b.i.d., prescriptions for #60 for today and 4 weeks were given. 2. Lyrica 25 mg 1 p.o. at bedtime was continued. No prescriptions provided at this time. The patient has plenty of medicines since we had tried to increase to 50, which was failed due to somnolence with this patient. 3. The patient was encouraged to take Voltaren gel, which she has medication at home, no prescriptions given at this time, to use that on her hands, shoulders, neck if need be for her increasing pain. [address] [address] PAIN MANAGEMENT CONSULTATION Name: JASMINSABIHA Room #: REG [facility] Melvina#: [id number] Admission: 12/06/17 Attend Phys: Ginger Mast Discharge: Date of : 46 Report #: [id number] 4. We discussed the possibility of further epidural steroid injections to be done by Dr. Martin Sheridan, when the patient feels that her pain has increased enough to warrant an injection. The patient states that she has significant relief from these in the past. 5. The patient will follow up our clinic in 2 months' time for followup for medication management, if not sooner, for epidural. The patient was seen in collaboration with Dr. Martin Sheridan. <ELECTRONICALLY SIGNED> By: Ginger Mast 12/09/17 1244 [id number] [id number] Ginger Mast /nt
[2017-12-06 13:01] VITALS: BP 119/59
== END ==
LOC: PAIN 07:07
DX: M54.12 Radiculopathy, cervical region (principal); M48.02 Spinal stenosis, cervical region; G62.9 Polyneuropathy, unspecified; I10 Essential (primary) hypertension; M81.0 Age-related osteoporosis without current pathological fracture; K22.70 Barrett's esophagus without dysplasia; K21.9 Gastro-esophageal reflux disease without esophagitis; M26.609 Unspecified temporomandibular joint disorder, unspecified side; G43.909 Migraine, unspecified, not intractable, without status migrainosus; G90.529 Complex regional pain syndrome I of unspecified lower limb; M41.20 Other idiopathic scoliosis, site unspecified; H93.19 Tinnitus, unspecified ear; H54.8 Legal blindness, as defined in USA; G40.A09 Absence epileptic syndrome, not intractable, without status epilepticus; N31.9 Neuromuscular dysfunction of bladder, unspecified; D33.4 Benign neoplasm of spinal cord; Z79.899 Other long term (current) drug therapy

== ENCOUNTER → 2018-03-03 | Outpatient (CLI) | payer OTHER ==
[~2018-03-03] VITALS: Ht 154.9 cm; Wt 69.0 kg
[2018-03-03 10:42] VITALS: BP 140/69
--- NOTE | 2018-03-03 10:47 | NUR ---
Pain Clinic Assessment: 1. History of Osteoarthritis: Not Applicable History of Rheumatoid Arthritis: Not Applicable 2. Height: 5 ft. 1 in. 154.9 cm. Weight: 152.2 lb. oz. 69.037 kg. Patient's BMI: 28.8 3. Vital Signs: BP: 140/69 Pulse: 70 Resp: 20 Temp: 02 Sat: 96 ECG Mon: 4. Pain Intensity: 4 5. Fall Risk: Dizziness: N Needs help standing or walking: Y Fallen in the last 3 months: N Fall risk comments: 6. Patient on Blood Thinner: None 7. History of Hypertension: Y 8. Opioid Therapy greater than 6 weeks: Y Opiate Contract Signed: 11/03/15 9. Risk Assessment Tool Provided: LOW RISK 10. Functional Assessment Tool: 11. Recreational Drug Use: Never Drug Type: Tobacco Use: Never Smoker Tobacco Type: Amount or Packs/day: How Many Years: Alcohol Use: No Frequency: Quant:
--- NOTE | 2018-03-04 07:25 | HPC ---
[facility] [address] [place] [address] PAIN MANAGEMENT CONSULTATION Name: SABIHA CASTELLANOS [facility]: [facility] [id number] Admission: 03/03/18 Attend Phys: Ginger Mast Discharge: Date of : 46 Report #: [id number] THIS REPORT FOR: //name// CC: Ginger Mast Rusty Aviles DATE OF SERVICE: 03/03/2018 CHIEF COMPLAINT: The patient has pain in her feet, knees, hips, neck, arms and cervical radiculopathy, complex regional pain syndrome. HISTORY OF PRESENT ILLNESS: This is a very pleasant 72-year-old female who returns to the pain clinic today for refill of her medications for her leg and foot pain and arm pain and today, she complains of right hip pain and some right shoulder pain. She tells me also that she has been having some balance issues last few days, unsure of the cause, does not feel congested, has not fallen, but does use her walker at all times. Her pain score today as 4/10, which is an average for her. She denies constipation. She does take qrxy-ohg-yprvgki medicine and diet-controlled. She tells me that she has been falling asleep quite easily throughout the day. Recently did have a home sleep study and is waiting to hear back from the tie knitter helper on a date for in-hospital sleep study. The patient tells me the tie knitter helper just told her she has restless legs syndrome and something else that she cannot recall. She tells us that is not narcolepsy, but unsure of what it is, has not started any medications for this. The patient does not feel that it is related to her long-term opioid medicine and she has been on that for a long time and does tell me that she is very sensitive to medications. Today, she would like a refill of her OxyContin and her Lyrica. ALLERGIES: CYMBALTA, STATINS, CODEINE, ASPIRIN, BACLOFEN, HYDROCHLOROTHIAZIDE, INDOMETHACIN, FENTANYL, QUINAPRIL, AMBIEN AND PLAVIX. CURRENT LIST OF MEDICATIONS: Lyrica 25 mg at bedtime, OxyContin 10 mg twice a day, Voltaren gel as needed, amlodipine, pumpkin seed extract, Carafate, estradiol, prednisone, hydralazine, metoprolol, Myrbetriq, Celebrex, lisinopril, omega-3, multivitamin, iron, Flonase, vitamin B12, vitamin D3, TriCor, Protonix, Lamictal and Zetia. PQRS: 1. The patient has a history of osteoarthritis in her hips, neck and back. She denies rheumatoid arthritis. 2. Height is 5 feet 1 inch, weight is 152, BMI is 28.8. 3. Vital Signs: Blood pressure 140/69, pulse 70, respirations 20, oxygen sat 96%, pain score is 4/10. 4. Fall risk. She does complain of some dizziness, has not fallen in the last 3 months and does use a walker at all times. [address] [address] PAIN MANAGEMENT CONSULTATION Name: SABIHA CASTELLANOS Room #: REG CLI Melvina#: [id number] Admission: 03/03/18 Attend Phys: Ginger Mast Discharge: Date of : 46 Report #: [id number] 5. The patient is not on a blood thinner. She does have a history of hypertension. 6. Her opioid therapy is greater than 6 weeks. Therefore, an opioid signed contract is on the chart. 7. Her risk assessment tool is low. Her functional assessment is 28/70. 8. The patient does not use recreational drugs. She does not smoke and she does not drink alcohol. We checked the prescription monitoring system. The patient is filling appropriately from doctors within the pain clinic with no deviation and she does have a recent drug screen on the chart that is appropriate for her medications. PHYSICAL EXAMINATION: GENERAL: This is a well-developed, well-nourished white female. She appears her stated age. She is alert and orientated and her affect is appropriate. She is a good historian. HEENT: Normocephalic, atraumatic. She has mucous membranes that are moist. She is legally blind female. NECK: Without adenopathy. She does complain of some tenderness in her neck, discomfort that goes into her right shoulder. It does not radiate into her arms. MUSCULOSKELETAL: Upper extremity strength is good. She does have pain and discomfort in her right hip today. Lower muscle strength judged to be 4/5 bilaterally. IMPRESSION: 1. Chronic pain and multiple pain generators including foot, arm, neck, and legs. 2. History of spinal stenosis and cervical radiculopathy. 3. Legally blind. 4. Hypertension. 5. Complex regional pain syndrome in lower limb. 6. Polyneuropathy. 7. Liu's esophagus. 8. Carpal tunnel syndrome. 9. Osteoporosis. 10. Gastroesophageal reflux. 11. Bladder dysfunction. 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 13. Tinnitus. 14. Chronic migraines. 15. Benign neoplasm of the spinal cord. 16. Idiopathic scoliosis. We reviewed the fact that opiate medications are being used to provide analgesia adequate to support activities of daily living, not attempting to achieve a [facility] [address] [facility] [place] [address] PAIN MANAGEMENT CONSULTATION Name: SABIHA CASTELLANOS Room #: REG [facility]#: [id number] Admission: 03/03/18 Attend Phys: Ginger Mast Discharge: Date of : 46 Report #: [id number] specific pain score on the 0-10 Visual Analog Scale. The current opiate medications are providing sufficient analgesia to allow the patient to participate in activities of daily living. The patient is not exhibiting any aberrant behavior suggestive of drug diversion. The patient is not having any adverse reactions to medications. The patient is not suffering from daytime somnolence or mental acuity changes. The patient is managing opiate-induced constipation with appropriate qgrm-ujd-vxpsqyu agents and dietary considerations. The patient was counseled on concern for caution with operating a motor vehicle while using opiate medications. A physical exam was performed and the patient's functional status was evaluated. All patients with back pain were advised against the bed rest greater than 4 days and were advised to return to normal activities. Pain score assessment was noted and the treatment plan was reviewed with the patient. All current medications, both prescribed and OTC were reviewed and reconciled on the electronic medical record. Tobacco screening was accomplished and smoking cessation was advised when indicated. BMI was noted and diet/exercise modification was recommended for all patients following outside normal parameters. I reviewed with the patient today their responsibilities to safeguard prescription medications, reviewed their responsibility to utilize medications only as prescribed by the physician. They are to seek and receive pain medications only from 1 physician group ( [facility]). They are to use 1 pharmacy and keep the clinic informed if they change pharmacies. Their responsibilities include making followup visits in a timely fashion and to avoid abrupt discontinuation of medication usage. Their responsibilities further include bringing their medications (bottles from the pharmacy with residual pills) to the visit for possible confirmation of pill counts and the patient understands it is their responsibility to submit to random drug screens to ensure both that the medications prescribed are present, and that no other controlled substances are present. All prescriptions provided today were generated electronically. PLAN: Today we discussed treatment options with the patient today, 1. We refilled her OxyContin 10 mg twice a day, #60 to be released today and 4 weeks. 2. Lyrica 25 mg 1 tablet at bedtime was also continued, script given for 180 with one additional refill. 3. Voltaren gel was not needed to be given today for prescription, but the patient encouraged to use it for her right hip pain and right shoulder pain. The patient tells me that she has been using it sparingly, but will try to increase use in her right hip. 4. The patient does tell me that she has been having some balance issues. I encouraged her to see her primary care doctor if this does continue. The patient does not feel like she has any nasal congestion and will follow up with [address] [address] PAIN MANAGEMENT CONSULTATION Name: SABIHA CASTELLANOS Room #: REG [facility] Melvina#: [id number] Admission: 03/03/18 Attend Phys: Ginger Mast Discharge: Date of : 47 Report #: [id number] doctor as needed. 5. The patient talked about her recent sleep study and needing more further testing, has not heard from them for several months. I encouraged her to call her tie knitter helper to set up her in-hospital study since she is having frequent bouts of daytime sleepiness, falling asleep at the dinner table, at the computer and such. The patient tells me this has gotten worse recently and does not feel that it is a result of her OxyContin use. The patient tells me the tie knitter helper did tell her she has restless legs syndrome, but no medications started. 6. The patient seen in collaboration today with Dr. Irving Stephens. The patient will follow up in 2 months' time frame for her medications. <ELECTRONICALLY SIGNED> By: Ginger Mast 03/04/18 0725 [id number] Ginger Mast /nt
== END ==
LOC: PAIN 07:31
DX: M25.561 Pain in right knee (principal); M25.562 Pain in left knee; M25.551 Pain in right hip; M25.552 Pain in left hip; M79.602 Pain in left arm; M79.601 Pain in right arm; M54.12 Radiculopathy, cervical region; G43.909 Migraine, unspecified, not intractable, without status migrainosus; H93.19 Tinnitus, unspecified ear; M81.0 Age-related osteoporosis without current pathological fracture; K22.70 Barrett's esophagus without dysplasia; I10 Essential (primary) hypertension; M41.20 Other idiopathic scoliosis, site unspecified; M26.609 Unspecified temporomandibular joint disorder, unspecified side; M48.02 Spinal stenosis, cervical region; H54.8 Legal blindness, as defined in USA; K21.9 Gastro-esophageal reflux disease without esophagitis; N31.9 Neuromuscular dysfunction of bladder, unspecified

== ENCOUNTER → 2018-04-22 | Outpatient (CLI) | payer OTHER ==
[~2018-04-22] VITALS: Ht 154.9 cm; Wt 68.0 kg
[~2018-04-22] MED LIST changes: +GAS RELIEF80 MG PO; +VOLTAREN GEL 1100 G2 TOP
[2018-04-22 10:33] VITALS: BP 147/73
--- NOTE | 2018-04-22 10:35 | NUR ---
[facility] Assessment: 1. History of Osteoarthritis: B/L HIPS, FEET, SPINE KNEES, SHOULDERS, ELBOW, HANDS History of Rheumatoid Arthritis: Not Applicable 2. Height: 5 ft. 1 in. 154.9 cm. Weight: 150.0 lb. oz. 68.040 kg. Patient's BMI: 28.4 3. Vital Signs: BP: 147/73 Pulse: 72 Resp: 16 Temp: 02 Sat: 97 ECG Mon: 4. Pain Intensity: 5-6 5. Fall Risk: Dizziness: N Needs help standing or walking: N Fallen in the last 3 months: N Fall risk comments: 6. Patient on Blood Thinner: None 7. History of Hypertension: Y 8. Opioid Therapy greater than 6 weeks: Y Opiate Contract Signed: 11/03/15 9. Risk Assessment Tool Provided: LOW RISK 10. Functional Assessment Tool: 11. Recreational Drug Use: Never Drug Type: Tobacco Use: Never Smoker Tobacco Type: Amount or Packs/day: How Many Years: Alcohol Use: No Frequency: Quant:
--- NOTE | 2018-04-23 07:43 | HPC ---
[facility] [place] [address] PAIN MANAGEMENT CONSULTATION Name: SABIHA CASTELLANOS [id number] Admission: 04/22/18 ������������������ Attend Phys: Ginger Mast Discharge: ������������������ Date of : 47 Report #: [id number] THIS REPORT FOR: //name// CC: Ginger Mast Rusty Aviles DATE OF SERVICE: 04/22/2018 CHIEF COMPLAINT: The patient has pain in her feet, knees, hips, neck, arms and complex regional pain syndrome. HISTORY OF PRESENT ILLNESS: This is a very pleasant 72-year-old female who is here today for her medication refill for her complex regional pain syndrome with her left leg and foot pain. She also does complain of bilateral arm pain, hip pain and right shoulder pain. She tells me that she is doing fairly well with her current medication regime. Her pain score is 5-6 today, worse with walking and standing and the weather. Her medications are helpful as well as sitting down. She does complain of some numbness and tingling and sharp pain in her shoulder today. The patient denies any constipation. She takes a probiotic daily. She tells me she is able to function without any confusion or overmedication feeling with this medication and would like refills today. ALLERGIES: CYMBALTA, STATINS, CODEINE, ASPIRIN, BACLOFEN, HYDROCHLOROTHIAZIDE, INDOMETHACIN, QUINAPRIL, AMBIEN and PLAVIX. CURRENT LIST OF MEDICATIONS: OxyContin 10 mg b.i.d., Lyrica 25 mg 1-2 tablets at bedtime, Voltaren gel 100 grams topically as needed, Norvasc 5 mg daily, pumpkin seed extract daily, estradiol patch weekly, prednisone 2 mg b.i.d., hydralazine 50 mg twice a day, metoprolol 25 mg daily, Myrbetriq 50 mg daily, Celebrex 100 mg b.i.d., lisinopril 40 mg daily, Lovaza 1000 mg b.i.d., multivitamin, iron daily, Flonase daily, vitamin B12 daily, vitamin B3 daily, TriCor 145 mg daily, Protonix 40 mg b.i.d., Lamictal 25 mg b.i.d. and Zetia 10 mg daily. PQRS: 1. She does have a history of osteoarthritis in her hips, neck and back. She denies rheumatoid arthritis. 2. Height is 5 feet 1 inch, weight is 150 and BMI is 28.4. 3. Vital signs: Blood pressure 147/73, pulse is 72, respirations 16 and oxygen sat is 97. 4. Pain score is 5/6. 5. The patient denies dizziness. She does use a walker and she has not fallen in the last 3 months. 6. The patient is not on any blood thinner. She does take medicines for hypertension. 7. Opiate therapy was greater than 6 weeks; therefore, [place] [address] PAIN MANAGEMENT CONSULTATION Name: SABIHA CASTELLANOS Room #: REG [facility] Hein#: [id number] Admission: 04/22/18 ������������������ Attend Phys: Ginger Mast Discharge: ������������������ Date of : 46 Report #: [id number] contract is on the chart. 8. Risk assessment tool is low. Her functional assessment is 28/70. 9. Recreational drug use, she denies. She is not a smoker and does not drink alcohol. We did check the prescription monitoring system. The patient is filling it appropriately from doctors within our clinic in appropriate time. We are also checking a buccal drug screen on the patient today as it has been greater than one year's time since her last buckle drug screen was checked. PHYSICAL EXAMINATION: GENERAL: This is a well-developed, well-nourished white female who appears her stated age of 72. She is alert and orientated. Her affect is appropriate. HEENT: Normocephalic and atraumatic. Mucous membranes are moist. She is legally blind. NECK: Without adenopathy. She complains of tenderness in her neck and tenderness in her right shoulder, does not radiate into her right arm today. MUSCULOSKELETAL: Does complain of discomfort in her right hip, her lower extremity judged to be 4/5 bilaterally. Her upper extremity strength judged to be 5/5 in all major muscle groups. The patient does walk with a slightly antalgic gait. IMPRESSION: 1. Chronic pain with multiple pain generators including her legs, feet, arm, neck and shoulder. 2. History of spinal stenosis with cervical radiculopathy. 3. Legally blind. 4. Hypertension. 5. Complex regional pain syndrome in the lower limbs, polyneuropathy. 6. Liu's esophagus. 7. Carpal tunnel syndrome. 8. Osteoporosis. 9. Gastroesophageal reflux. 10. Temporomandibular joint disease. 11. Tinnitus. 12. Chronic migraines. 13. Benign neoplasm of the spinal cord. 14. Idiopathic scoliosis. We reviewed the fact that opiate medications are being used to provide analgesia adequate to support activities of daily living, not attempting to achieve a specific pain score on the 0-10 Visual Analog Scale. The current opiate medications are providing sufficient analgesia to allow the patient to participate in activities of daily living. The patient is not exhibiting any aberrant behavior suggestive of drug diversion. The patient is not having any adverse reactions to medications. The patient is not suffering from daytime somnolence or mental acuity changes. The patient is managing opiate-induced constipation with appropriate qzjv-sld-vsavvas agents and dietary [facility] [address] [place] [address] PAIN MANAGEMENT CONSULTATION Name: SABIHA CASTELLANOS Room #: REG [facility].#: [id number] Admission: 04/22/18 ������������������ Attend Phys: Ginger Mast Discharge: ������������������ Date of : 46 Report #: [id number] considerations. The patient was counseled on concern for caution with operating a motor vehicle while using opiate medications. A physical exam was performed and the patient's functional status was evaluated. All patients with back pain were advised against the bed rest greater than 4 days and were advised to return to normal activities. Pain score assessment was noted and the treatment plan was reviewed with the patient. All current medications, both prescribed and OTC were reviewed and reconciled on the electronic medical record. Tobacco screening was accomplished and smoking cessation was advised when indicated. BMI was noted and diet/exercise modification was recommended for all patients following outside normal parameters. I reviewed with the patient today their responsibilities to safeguard prescription medications, reviewed their responsibility to utilize medications only as prescribed by the physician. They are to seek and receive pain medications only from 1 physician group ([facility]). They are to use 1 pharmacy and keep the clinic informed if they change pharmacies. Their responsibilities include making followup visits in a timely fashion and to avoid abrupt discontinuation of medication usage. Their responsibilities further include bringing their medications (bottles from the pharmacy with residual pills) to the visit for possible confirmation of pill counts and the patient understands it is their responsibility to submit to random drug screens to ensure both that the medications prescribed are present, and that no other controlled substances are present. All prescriptions provided today were generated electronically. PLAN: 1. We discussed treatment options with the patient today. The patient tells me that she has been doing well with her current pain medication regimen and would like to continue on these. Scripts given today for OxyContin 10 mg b.i.d., #60 for today and 4-week release. This places the patient on an MME of 30 MME per day. 2. The patient does not need Lyrica refills today. She was given 3-month supply of that at last visit and she continues to take that at bedtime. 3. Voltaren gel. Script was given today. The patient has been using that on her right shoulder pain and finds that it has been helpful. She is trying to not come in for an injection until it is more severe. 4. The patient was seen with Dr. Salvador Robbins as well as myself today. He collaborated with care. The patient will be seen in [address] Juan Sheridan. ��������������������������������������������� <ELECTRONICALLY SIGNED> ���������������������������������������� By: Ginger Mast ��������������������������������������������� 04/23/18 0743 [id number] Ginger Mast /nt
== END ==
LOC: PAIN 04-16 14:03
DX: G90.523 Complex regional pain syndrome I of lower limb, bilateral (principal); M48.02 Spinal stenosis, cervical region; M54.12 Radiculopathy, cervical region; I10 Essential (primary) hypertension; K22.70 Barrett's esophagus without dysplasia; K21.9 Gastro-esophageal reflux disease without esophagitis; M81.0 Age-related osteoporosis without current pathological fracture; H93.19 Tinnitus, unspecified ear; G43.909 Migraine, unspecified, not intractable, without status migrainosus; M41.20 Other idiopathic scoliosis, site unspecified; D33.4 Benign neoplasm of spinal cord; H54.8 Legal blindness, as defined in USA; Z79.899 Other long term (current) drug therapy

== ENCOUNTER → 2018-06-04 | Outpatient (CLI) | payer OTHER ==
[~2018-06-04] VITALS: Ht 154.9 cm; Wt 68.9 kg
[2018-06-04 11:37] VITALS: BP 130/69
--- NOTE | 2018-06-04 12:06 | NUR ---
Pain Clinic Assessment: 1. History of Osteoarthritis: B/L HIPS, FEET, SPINE KNEES, SHOULDERS, ELBOW, HANDS History of Rheumatoid Arthritis: Not Applicable 2. Height: 5 ft. 1 in. 154.9 cm. Weight: 151.8 lb. oz. 68.856 kg. Patient's BMI: 28.7 3. Vital Signs: BP: 130/69 Pulse: 71 Resp: 16 Temp: 02 Sat: 97 ECG Mon: 4. Pain Intensity: 3 5. Fall Risk: Dizziness: N Needs help standing or walking: Y Fallen in the last 3 months: N Fall risk comments: 6. Patient on Blood Thinner: None 7. History of Hypertension: Y 8. Opioid Therapy greater than 6 weeks: Y Opiate Contract Signed: 11/03/15 9. Risk Assessment Tool Provided: LOW RISK 10. Functional Assessment Tool: 11. Recreational Drug Use: Never Drug Type: Tobacco Use: Never Smoker Tobacco Type: Amount or Packs/day: How Many Years: Alcohol Use: No Frequency: Quant:
--- NOTE | 2018-06-11 09:14 | HPC ---
[facility] [place] [address] PAIN MANAGEMENT CONSULTATION Name: SABIHA CASTELLANOS Room #: REG [facility].#: [id number] Admission: 06/04/18 ������������������ Attend Phys: Salvador Robbins DO Discharge: ������������������ Date of : 46 Report #: [id number] THIS REPORT FOR: //name// CC: Salvador Aviles MD DATE OF SERVICE: 06/04/2018 REFERRING PHYSICIAN: Rusty Aviles MD. CHIEF COMPLAINT: Bilateral hip pain, bilateral knee pain, bilateral feet pain. HISTORY OF PRESENT ILLNESS: As you know, the patient is a 72-year-old female followed by my partner, Dr. Martin Sheridan for generalized lower extremity pain. She remains on medication in the form of OxyContin 10 mg twice a day, utilizing Lyrica 25 mg dose for neuropathic symptoms. She returns today requesting refill on medications. She underwent urine drug screen/buccal drug screen on 04/22/2018, which showed positive for oxycodone, but negative for pregabalin. Apparently, the patient was not started on the Lyrica prior to that visit. She was positive for the opioids requested today. She has been placed on my schedule due to conflicts of scheduling. She was to be seen this one time to assist Dr. Sheridan in managing this patient. She denies new injury, new trauma or any changes in her medical history since our visit of 04/22/2018. ALLERGIES: CYMBALTA, STATINS, CODEINE, ASPIRIN, BACLOFEN, HYDROCHLOROTHIAZIDE, INDOMETHACIN, QUINAPRIL, AMBIEN AND PLAVIX. CURRENT MEDICATIONS: Voltaren gel applied topically twice a day, simethicone 80 mg once a day, OxyContin 10 mg q. 12 hours, pregabalin 25 mg p.o. at bedtime, amlodipine 5 mg twice a day, pumpkin seed extract 1 tab per day, estradiol 1 mg per week, prednisone 5 mg per day, hydralazine 50 mg per day, metoprolol 25 mg per day, Myrbetriq 50 mg once a day, celecoxib 100 mg twice a day, lisinopril 20 mg once a day, omega-3 fish oil 1 tab per day, multivitamin 1 tab per day, ferrous sulfate 325 mg a day, fluticasone 2 sprays each nostril per day, cholecalciferol 2000 units per day, fenofibrate 145 mg per day, pantoprazole 40 mg per day, lamotrigine 25 mg twice a day, Zetia 10 mg once a day. SOCIAL HISTORY: The patient denies tobacco, alcohol, IV or illicit drug use. She is retired and has been so for years, unaccompanied today. IMAGING: No new imaging available. PQRS: The patient has known osteoarthritic changes of the cervical spine, the bilateral hips and lumbar spine. No rheumatoid arthritis. She is placing pain intensity 3/10. She is a fall risk, but has not had fallen in the last [address] [address] PAIN MANAGEMENT CONSULTATION Name: SABIHA CASTELLANOS Room #: REG [facility] Hein#: [id number] Admission: 06/04/18 ������������������ Attend Phys: Salvador Robbins DO Discharge: ������������������ Date of : 46 Report #: [id number] months. She is not on blood thinners, but is treated for hypertension. She is on chronic opioid medications and is under contract with Dr. Juan Sheridan. She is a low risk based on our risk assessment for opioid addiction. She is placing pain impact score 28/70, moderate interference of daily activities secondary to pain. PHYSICAL EXAMINATION: VITAL SIGNS: Blood pressure 130/69, pulse 71, respiratory rate 16 and unlabored. The patient is 97% on room air. Height 5 feet 1 inch tall, weight 151.8 pounds, BMI calculated 28.7. GENERAL: Well-developed, well-nourished, well-hydrated 72-year-old female, appears her stated age. She is awake, alert and oriented. She is legally blind. EXTREMITIES: Show no clubbing, no cyanosis, no edema. MUSCULOSKELETAL: Upper extremity strength appears symmetrical 5/5. There is some tenderness to palpation over the paraspinal musculature of cervical spine. No spinous process tenderness. Cervical provocation testing is met with no cervical radicular symptoms. There is mild restriction of motion with rotation and lateral flexion. Seated straight leg raising negative. Supine straight leg raising negative. Upper extremity strength 5/5, lower extremity strength 5/5. ASSESSMENT: 1. History of cervical radiculopathy. 2. Cervical spinal stenosis. 3. Hypertension. 4. Complex regional pain syndrome of the lower extremities. 5. Polyneuropathy. 6. Osteoarthritic changes. PLAN: 1. The patient returns today in followup visit for medication management. Due to scheduling conflicts, the patient was sent to my clinic for medication management. She will be following with Dr. Sheridan on a typical basis, but due to the scheduling conflicts, the patient was needing her medications and we were unable to accommodate her being seen by my partner. She returns today requesting refills of her OxyContin and Lyrica. She denies any side effects to medication including somnolence, decreased mental acuity, disorientation, confusion or constipation issues that cannot be controlled with bpmv-ccn-iosrehn medication. She requests refill of medication be provided today. We reviewed the fact that opiate medications are being used to provide analgesia adequate to support activities of daily living, not attempting to achieve a specific pain score on the 0-10 Visual Analog Scale. The current opiate medications are providing sufficient analgesia to allow the patient to participate in activities of daily living. The patient is not exhibiting any aberrant behavior suggestive of drug diversion. The patient is not having any [facility] [address] [address] PAIN MANAGEMENT CONSULTATION Name: SABIHA CASTELLANOS Room #: REG [facility]#: [id number] Admission: 06/04/18 ������������������ Attend Phys: Salvador Robbins DO Discharge: ������������������ Date of : 46 Report #: [id number] adverse reactions to medications. The patient is not suffering from daytime somnolence or mental acuity changes. The patient is managing opiate-induced constipation with appropriate ekym-npb-lepsogs agents and dietary considerations. The patient was counseled on concern for caution with operating a motor vehicle while using opiate medications. A physical exam was performed and the patient's functional status was evaluated. All patients with back pain were advised against the bed rest greater than 4 days and were advised to return to normal activities. Pain score assessment was noted and the treatment plan was reviewed with the patient. All current medications, both prescribed and OTC were reviewed and reconciled on the electronic medical record. Tobacco screening was accomplished and smoking cessation was advised when indicated. BMI was noted and diet/exercise modification was recommended for all patients following outside normal parameters. I reviewed with the patient today their responsibilities to safeguard prescription medications, reviewed their responsibility to utilize medications only as prescribed by the physician. They are to seek and receive pain medications only from 1 physician group ( [facility]). They are to use 1 pharmacy and keep the clinic informed if they change pharmacies. Their responsibilities include making followup visits in a timely fashion and to avoid abrupt discontinuation of medication usage. Their responsibilities further include bringing their medications (bottles from the pharmacy with residual pills) to the visit for possible confirmation of pill counts and the patient understands it is their responsibility to submit to random drug screens to ensure both that the medications prescribed are present, and that no other controlled substances are present. All prescriptions provided today were generated electronically. 2. The patient was provided prescription OxyContin 10 mg dose 1 tab p.o. b.i.d., given the patient #60 tablets, releasing today and 4 weeks from today. I did discuss with the patient that OxyContin may ultimately be discontinued due to recent lawsuits against the tobacco checkout clerk. Currently, they remain available, but this may not be the case very soon. If this is the case, adjustments need to be made. She will need to be returned to be seen by Dr. Martin Sheridan. 3. The patient was provided a prescription of Lyrica 25 mg dose. We have given her 180 tablets of 3-month prescription. She will continue to take the medication as directed. [address] [address] PAIN MANAGEMENT CONSULTATION Name: SABIHA CASTELLANOS Room #: REG [facility] Hein#: [id number] Admission: 06/04/18 ������������������ Attend Phys: Salvador Robbins DO Discharge: ������������������ Date of : 46 Report #: [id number] 4. We will see the patient back in followup visit in 2 months for her OxyContin. She will be following up with Dr. Juan Sheridan. ��������������������������������������������� <ELECTRONICALLY SIGNED> ���������������������������������������� By: Salvador Robbins DO ��������������������������������������������� 06/11/18 0914 [id number] Salvador Robbins DO /nt
== END ==
LOC: PAIN 07:13
DX: M25.561 Pain in right knee (principal); M79.672 Pain in left foot; M79.671 Pain in right foot; M54.12 Radiculopathy, cervical region; I10 Essential (primary) hypertension; M48.02 Spinal stenosis, cervical region; G62.9 Polyneuropathy, unspecified; Z79.899 Other long term (current) drug therapy; Z88.6 Allergy status to analgesic agent; Z88.8 Allergy status to other drugs, medicaments and biological substances

== ENCOUNTER → 2018-08-05 | Outpatient (CLI) | payer OTHER ==
[~2018-08-05] VITALS: Ht 152.4 cm; Wt 68.9 kg
[2018-08-05 11:03] VITALS: BP 143/74
--- NOTE | 2018-08-05 11:15 | NUR ---
Pain Clinic Assessment: 1. History of Osteoarthritis: B/L HIPS, FEET, SPINE KNEES, SHOULDERS, ELBOW, HANDS History of Rheumatoid Arthritis: Not Applicable 2. Height: 5 ft. 0 in. 152.4 cm. Weight: 152.0 lb. oz. 68.947 kg. Patient's BMI: 29.7 3. Vital Signs: BP: 143/74 Pulse: 69 Resp: 16 Temp: 02 Sat: 14 ECG Mon: 4. Pain Intensity: 3-4 5. Fall Risk: Dizziness: N Needs help standing or walking: N Fallen in the last 3 months: N Fall risk comments: 6. Patient on Blood Thinner: None 7. History of Hypertension: Y 8. Opioid Therapy greater than 6 weeks: Y Opiate Contract Signed: 11/03/15 9. Risk Assessment Tool Provided: LOW RISK 10. Functional Assessment Tool: 11. Recreational Drug Use: Never Drug Type: Tobacco Use: Never Smoker Tobacco Type: Amount or Packs/day: How Many Years: Alcohol Use: No Frequency: Quant:
--- NOTE | 2018-08-06 08:23 | HPC ---
[facility] [address] [place] [address] PAIN MANAGEMENT CONSULTATION Name: JASMINSABIHA Corona [id number] Admission: 08/05/18 ������������������ Attend Phys: Ginger Mast Discharge: ������������������ Date of : 47 Report #: [id number] THIS REPORT FOR: //name// CC: Ginger Mast Rusty Aviles DATE OF SERVICE: 08/05/2018 CHIEF COMPLAINT: Bilateral hip pain, bilateral knee pain, and feet pain. HISTORY OF PRESENT ILLNESS: This is a 73-year-old female who returns to the pain clinic today for medication management for her ongoing lower extremity pain. She tells me that her OxyContin that she takes is very helpful in controlling her pain, rating her pain score 3-4/10 today. She tells me that she does have most of her pain in her legs and feet, but does have an occasional right shoulder pain, tingling, numbness feeling, worse with walking and standing, but her medications as I said are very helpful. She does not have any problems with constipation or daytime sleepiness from her medications. She tells me that she did have an episode where she was slightly dizzy, felt her blood pressure was slightly elevated and have periods of forgetfulness. She does not think this had anything to do with the medications that she was taking from us but was unsure what caused that episode. She did not seek any medical attention when that happened, just went back to her room in the facility that she lives in. Today, she would just like to have refills of her current medications. ALLERGIES: CYMBALTA, STATINS, CODEINE, ASPIRIN, BACLOFEN, HYDROCHLOROTHIAZIDE, INDOMETHACIN, QUINAPRIL, AMBIEN AND PLAVIX. CURRENT LIST OF MEDICATIONS: Lyrica 25 mg at bedtime, OxyContin 10 mg b.i.d., Voltaren gel as needed; amlodipine 5 mg b.i.d., pumpkin seed, Climara patches weekly, prednisone 5 mg b.i.d., hydralazine 50 mg b.i.d., metoprolol 25 mg daily, Myrbetriq 50 mg daily, Celebrex 100 mg b.i.d., lisinopril 40 mg daily, Lovaza 1000 mg b.i.d., multivitamin, iron, vitamin B12, vitamin D3, TriCor 145 mg, Protonix 40 mg b.i.d., Lamictal 25 mg b.i.d. and Zetia 10 mg daily. PQRS: 1. She does have known arthritic changes in her cervical spine as well as her hips and lumbar spine. Denies any rheumatoid arthritis. 2. Height is 5 feet, weight is 152, BMI is 27. Vital signs 143/74, pulse is 69, respirations 16, oxygen sat is 14. Pain score is 3-4. Fall risk, denies dizziness today. Does use a walker and has not fallen in the last 3 months. 3. The patient is not on any blood thinners, does take medicine for hypertension. Opiate therapy is greater than 6 weeks; therefore, an he opioid signed contract is on the chart. Her risk assessment tool is low. Her functional assessment 28/70. Recreational drug use, she denies. She is not a [facility] [address] [place] [address] PAIN MANAGEMENT CONSULTATION Name: SABIHA CASTELLANOS Room #: REG [facility] Corona.Duane.#: [id number] Admission: 08/05/18 ������������������ Attend Phys: Ginger Mast Discharge: ������������������ Date of : 47 Report #: [id number] smoker and does not drink alcohol. We did check the prescription monitoring system. The patient is filling appropriately and actually just filled last week and only received 39 pills of the 60 that she normally gets in 1 month. We also have a drug screen on the chart that is appropriate for her OxyContin medication. PHYSICAL EXAMINATION: GENERAL: This is a well-developed, well-nourished, well-hydrated 73-year-old female who appears her stated age, placing her pain score today at 3-4. She is alert and orientated and she is legally blind. EXTREMITIES: No clubbing, no cyanosis, no edema. MUSCULOSKELETAL: Upper extremity strength judged to be symmetrical at 5/5, complains of tenderness in her right shoulder today. Lower extremity strength judged to be 5/5 as well. Complains of numbness in her lower left extremity that is intermittent. She walks with a slightly antalgic gait and does use a walker at all times. ASSESSMENT: 1. History of cervical radiculopathy. 2. Cervical spinal stenosis. 3. Hypertension. 4. Complex regional pain syndrome of the lower extremities. 5. Polyneuropathy. 6. Osteoarthritic changes. 7. Complex medical management under terms of written opioid agreement. We reviewed the fact that opiate medications are being used to provide analgesia adequate to support activities of daily living, not attempting to achieve a specific pain score on the 0-10 Visual Analog Scale. The current opiate medications are providing sufficient analgesia to allow the patient to participate in activities of daily living. The patient is not exhibiting any aberrant behavior suggestive of drug diversion. The patient is not having any adverse reactions to medications. The patient is not suffering from daytime somnolence or mental acuity changes. The patient is managing opiate-induced constipation with appropriate [id number]-wczhgyn agents and dietary considerations. The patient was counseled on concern for caution with operating a motor vehicle while using opiate medications. A physical exam was performed and the patient's functional status was evaluated. All patients with back pain were advised against the bed rest greater than 4 days and were advised to return to normal activities. Pain score assessment was noted and the treatment plan was reviewed with the patient. All current medications, both prescribed and OTC were reviewed and reconciled on the electronic medical record. Tobacco screening was accomplished and smoking cessation was advised when indicated. BMI was noted and diet/exercise [address] [address] PAIN MANAGEMENT CONSULTATION Name: SABIHA CASTELLANOS Room #: [facility]..#: [id number] Admission: 08/05/18 ������������������ Attend Phys: Ginger Mast Discharge: ������������������ Date of : 47 Report #: [id number] modification was recommended for all patients following outside normal parameters. I reviewed with the patient today their responsibilities to safeguard prescription medications, reviewed their responsibility to utilize medications only as prescribed by the physician. They are to seek and receive pain medications only from 1 physician group ([facility]). They are to use 1 pharmacy and keep the clinic informed if they change pharmacies. Their responsibilities include making followup visits in a timely fashion and to avoid abrupt discontinuation of medication usage. Their responsibilities further include bringing their medications (bottles from the pharmacy with residual pills) to the visit for possible confirmation of pill counts and the patient understands it is their responsibility to submit to random drug screens to ensure both that the medications prescribed are present, and that no other controlled substances are present. All prescriptions provided today were generated electronically. PLAN: 1. We discussed treatment options with the patient today. It appears that the patient is here for scripts today, but she has not filled her 4-week prescription. We did call the [facility] where she normally fills her last prescription filled was on 08/01/2018 which they gave her 39 pills of her OxyContin, which is a 20-day supply. The patient still has her 4-week release from May. Evidently, the patient is ahead on her prescriptions, so we will alter her times of her next prescriptions accordingly. Scripts given today for OxyContin 10 mg b.i.d., #60 to release in August and September. Therefore, she will return in October for her medications. At that time, she will be back on schedule with her scripts, not having any extra at home. 2. The patient does not need her Lyrica today. She tells me that she does have some occasional flare up of neuropathy in her lower extremity. I encouraged her to take an additional Lyrica if she is able to tolerate it to see if this is beneficial. 3. The patient is seen in collaboration today with Dr. Salvador Robbins. The patient will follow up in October. ��������������������������������������������� <ELECTRONICALLY SIGNED> ���������������������������������������� By: Ginger Mast ��������������������������������������������� 08/06/18 0823 1350 33 Ginger Mast /akila
== END ==
LOC: PAIN 06:40
DX: M48.02 Spinal stenosis, cervical region (principal); M54.12 Radiculopathy, cervical region; M19.90 Unspecified osteoarthritis, unspecified site; G62.9 Polyneuropathy, unspecified; Z79.899 Other long term (current) drug therapy

== ENCOUNTER → 2018-10-22 | Outpatient (CLI) | payer OTHER ==
[~2018-10-22] VITALS: Ht 152.4 cm; Wt 67.8 kg
[2018-10-22 10:30] VITALS: BP 113/69
--- NOTE | 2018-10-22 10:48 | NUR ---
Pain Clinic Assessment: 1. History of Osteoarthritis: B/L HIPS, FEET, SPINE KNEES, SHOULDERS, ELBOW, HANDS History of Rheumatoid Arthritis: Not Applicable 2. Height: 5 ft. 0 in. 152.4 cm. Weight: 149.4 lb. oz. 67.767 kg. Patient's BMI: 29.2 3. Vital Signs: BP: 113/69 Pulse: 67 Resp: 16 Temp: 02 Sat: 98 ECG Mon: 4. Pain Intensity: 3 5. Fall Risk: Dizziness: N Needs help standing or walking: Y Fallen in the last 3 months: N Fall risk comments: 6. Patient on Blood Thinner: None 7. History of Hypertension: Y 8. Opioid Therapy greater than 6 weeks: Y Opiate Contract Signed: 11/03/15 9. Risk Assessment Tool Provided: LOW RISK 10. Functional Assessment Tool: 11. Recreational Drug Use: Never Drug Type: Tobacco Use: Never Smoker Tobacco Type: Amount or Packs/day: How Many Years: Alcohol Use: No Frequency: Quant:
--- NOTE | 2018-11-11 14:42 | HPC ---
[facility] [place] [address] PAIN MANAGEMENT CONSULTATION Name: SABIHA CASTELLANOS Room #: REG [facility].#: [id number] Admission: 10/22/18 ������������������ Attend Phys: Salvador Robbins DO Discharge: ������������������ Date of : 47 Report #: [id number] THIS REPORT FOR: //name// CC: Salvador Aviles DATE OF SERVICE: 10/22/2018 CHIEF COMPLAINT: Bilateral lower extremity pain, bilateral knee pain, foot pain. HISTORY OF PRESENT ILLNESS: As you know, the patient is a 73-year-old female who returns today in followup visit for medication management. She is currently taking OxyContin 10 mg twice a day for baseline pain control, also utilizing Voltaren gel on an as needed basis for bilateral hip, bilateral knee and foot pain. She returns today requesting refill on medications. She is placing pain score at 3/10. She states the pain is numbness, tingling and sharp in sensation, exacerbated with walking, standing, activities, and weather, improves with medications and seated positions. ALLERGIES: CYMBALTA, STATINS, AND CODEINE. CURRENT MEDICATIONS: Aspirin, baclofen, hydrochlorothiazide, indomethacin, quinapril, Ambien and Plavix. CURRENT MEDICATIONS: Lyrica 25 mg p.o. at bedtime, OxyContin 10 mg b.i.d., Voltaren gel applied topically up to 3 times a day, amlodipine 5 mg b.i.d., pumpkin seed extract 1 tab per day, Climara patches weekly, prednisone 5 mg b.i.d., hydralazine 50 mg b.i.d., metoprolol 25 mg b.i.d. Myrbetriq 50 mg once a day, Celebrex 100 mg b.i.d., lisinopril 40 mg per day, Lovaza 100 mg b.i.d., multivitamin 1 tab per day, iron supplement 1 tab per day, vitamin B12 one tab per day, vitamin D3 one tab per day, TriCor 145 mg per day, Protonix 40 mg per day, Lamictal 25 mg b.i.d., Zetia 10 mg per day. IMAGING: No new imaging available. PQRS: The patient has known arthritic changes of the cervical spine, lumbar spine, bilateral hips and knees. Denies rheumatoid arthritis. She is placing pain intensity 3/10. She is a fall risk, but has not had a fall in last 3 months. She is not on blood thinners and is treated for hypertension. She is on chronic opioids, but has a low opioid addiction potential based on our assessment tool. Pain impact score 28/70 indicating rbbc-pd-[id number] interference of daily activities secondary to pain. PHYSICAL EXAMINATION: VITAL SIGNS: Blood pressure 113/69, pulse 67, respiratory rate [address] [address] PAIN MANAGEMENT CONSULTATION Name: SABIHA CASTELLANOS Room #: REG [facility].#: [id number] Admission: 10/22/18 ������������������ Attend Phys: Salvador Robbins DO Discharge: ������������������ Date of : 47 Report #: [id number] unlabored. The patient is 98% on room air. Height 5 feet tall, weight 149.4 pounds, BMI calculated 29.2. GENERAL: Well-developed, well-nourished, well-hydrated 73-year-old female appearing stated age. Pain is rated today 3/10. HEENT: Normocephalic, atraumatic. Pupils are equal, round, reactive to light. EXTREMITIES: Show no clubbing, no cyanosis, and no edema. MUSCULOSKELETAL: Upper extremity strength equal and symmetrical 5/5. Lower strength equal and symmetrical 5/5. Muscle bulk and tone equal and symmetrical in comparing left lower extremity to right. Seated straight leg raising negative. Supine straight leg raising negative. Madelin's test negative. She does walk with a slight antalgic gait, utilizing a roller walker. ASSESSMENT: 1. Chronic cervical radiculopathy. 2. Cervical spinal stenosis. 3. Hypertension. 4. Complex regional pain syndrome of the lower extremities. 5. Polyneuropathy. 6. Osteoarthritis. 7. Complex medication management utilizing scheduled medications. PLAN: We reviewed the fact that opiate medications are being used to provide analgesia adequate to support activities of daily living, not attempting to achieve a specific pain score on the 0-10 Visual Analog Scale. The current opiate medications are providing sufficient analgesia to allow the patient to participate in activities of daily living. The patient is not exhibiting any aberrant behavior suggestive of drug diversion. The patient is not having any adverse reactions to medications. The patient is not suffering from daytime somnolence or mental acuity changes. The patient is managing opiate-induced constipation with appropriate zypb-pys-mvddjcj agents and dietary considerations. The patient was counseled on concern for caution with operating a motor vehicle while using opiate medications. A physical exam was performed and the patient's functional status was evaluated. All patients with back pain were advised against the bed rest greater than 4 days and were advised to return to normal activities. Pain score assessment was noted and the treatment plan was reviewed with the patient. All current medications, both prescribed and OTC were reviewed and reconciled on the electronic medical record. Tobacco screening was accomplished and smoking cessation was advised when indicated. BMI was noted and diet/exercise modification was recommended for all patients following outside normal parameters. I reviewed with the patient today their responsibilities to safeguard prescription medications, reviewed their responsibility to utilize medications [facility] [address] [place] [address] PAIN MANAGEMENT CONSULTATION Name: SABIHA CASTELLANOS Room #: REG [facility].#: [id number] Admission: 10/22/18 ������������������ Attend Phys: Salvador Robbins DO Discharge: ������������������ Date of : 47 Report #: [id number] only as prescribed by the physician. They are to seek and receive pain medications only from 1 physician group ( [facility]). They are to use 1 pharmacy and keep the clinic informed if they change pharmacies. Their responsibilities include making followup visits in a timely fashion and to avoid abrupt discontinuation of medication usage. Their responsibilities further include bringing their medications (bottles from the pharmacy with residual pills) to the visit for possible confirmation of pill counts and the patient understands it is their responsibility to submit to random drug screens to ensure both that the medications prescribed are present, and that no other controlled substances are present. All prescriptions provided today were generated electronically. 2. The patient was provided a prescription of OxyContin 10 mg dose 1 tab p.o. b.i.d. I have advised the patient we will allow releases today and 4 weeks from today, 2 months for the medication. We also discussed today recent information about the [place] commissioner of OxyContin are potentially going to be filing bankruptcy, which will take this medication off the market. We will have to adjust to nonopioid related treatment from this point forward once this medication is no longer available. I have discussed this with the patient today. This is an unfortunate situation, but without the availability of this medication and inability to take other medications, this is our only option. We will discuss this once the company has removed the medication from formulary. 3. The patient will be continued on Voltaren gel. I have given the patient two 100 gram tubes with 2 refills and this should provide good and prolonged benefit. She was given a prescription in written form to go to her [facility]. 10. We will see the patient back in followup visit in 2 months or earlier if OxyContin is no longer available on the market, this depends on the bankruptcy proceedings with [employer], the u.s. commissioner of OxyContin. ��������������������������������������������� <ELECTRONICALLY SIGNED> ���������������������������������������� By: Salvador Robbins DO ��������������������������������������������� 11/11/18 [id number] Salvador Robbins DO /nt
== END ==
LOC: PAIN 07:55
DX: M25.561 Pain in right knee (principal); M25.562 Pain in left knee; M54.12 Radiculopathy, cervical region; M48.02 Spinal stenosis, cervical region; I10 Essential (primary) hypertension; M19.90 Unspecified osteoarthritis, unspecified site; G62.9 Polyneuropathy, unspecified; Z88.8 Allergy status to other drugs, medicaments and biological substances; Z79.899 Other long term (current) drug therapy; Z79.82 Long term (current) use of aspirin

== ENCOUNTER → 2018-12-17 | Outpatient (CLI) | payer OTHER ==
[~2018-12-17] VITALS: Ht 154.9 cm; Wt 68.9 kg
[2018-12-17 10:55] VITALS: BP 128/66
--- NOTE | 2018-12-17 10:57 | NUR ---
Pain Clinic Assessment: 1. History of Osteoarthritis: B/L HIPS, FEET, SPINE KNEES, SHOULDERS, ELBOW, HANDS History of Rheumatoid Arthritis: Not Applicable 2. Height: 5 ft. 1 in. 154.9 cm. Weight: 151.8 lb. oz. 68.856 kg. Patient's BMI: 28.7 3. Vital Signs: BP: 128/66 Pulse: 67 Resp: 18 Temp: 02 Sat: 95 ECG Mon: 4. Pain Intensity: 5 5. Fall Risk: Dizziness: N Needs help standing or walking: N Fallen in the last 3 months: N Fall risk comments: 6. Patient on Blood Thinner: None 7. History of Hypertension: Y 8. Opioid Therapy greater than 6 weeks: Y Opiate Contract Signed: 11/03/15 9. Risk Assessment Tool Provided: LOW RISK 10. Functional Assessment Tool: 11. Recreational Drug Use: Never Drug Type: Tobacco Use: Never Smoker Tobacco Type: Amount or Packs/day: How Many Years: Alcohol Use: No Frequency: Quant:
--- NOTE | 2018-12-19 12:46 | HPC ---
[facility] [address] [place] [address] PAIN MANAGEMENT CONSULTATION Name: SABIHA CASTELLANOS Room #: REG [facility].#: [id number] Admission: 12/17/18 Attend Phys: Ginger Mast Discharge: Date of : 47 Report #: [id number] THIS REPORT FOR: //name// CC: Ginger Medina MD DATE OF SERVICE: 12/17/2018 CHIEF COMPLAINT: Bilateral lower extremity pain, bilateral knee pain and foot pain. HISTORY OF PRESENT ILLNESS: This is a very pleasant 73-year-old female who returns to the pain clinic today for refill of her medications that she uses to help treat her ongoing extremity pain and low back pain. She does also suffer from fibromyalgia and has ongoing issues with that as well. She tells me that her headaches are better and has been seeing a neurologist, which she had been complaining of her last few visits. She states her pain score is 5/10. It is mostly numbness, tingly, sharp pain that is worse with walking and activity and changes in the weather. She said wintertime is especially bad for her, but she finds her medication very beneficial as well as sitting. She is here present with a friend today since she is legally blind and he does help drive her here to her appointments. She is filling her November prescription today and is requesting refills. ALLERGIES: CYMBALTA, STATINS, CODEINE, ASPIRIN, BACLOFEN, HYDROCHLOROTHIAZIDE, INDOMETHACIN, QUINAPRIL, AMBIEN AND PLAVIX. CURRENT LIST OF MEDICATIONS: OxyContin 10 mg b.i.d., Lyrica 25 mg 1-2 at bedtime, diclofenac gel 2 mg b.i.d. p.r.n. Please see extensive list in chart that was reconciled. PQRS: 1. The patient has a history of osteoarthritis in her bilateral hips, spine, knees, shoulders and hands. Denies any rheumatoid arthritis. 2. Height is 5 feet 1 inch, weight is 151. BMI is 28. 3. Vital signs: 128/66, pulse is 67, respirations 18, oxygen sat is 95. 4. Pain score is 5/10. 5. Denies dizziness, does need help walking. She uses a walker and has not fallen in the last 3 months. 6. The patient is not on any blood thinners, but does take medicine for hypertension. 7. Opiate therapy is greater than 6 weeks; therefore an opiate signed contract is on the chart. Risk assessment tool is low. Functional assessment is 28/70. 8. Recreational drug use, she denies. She is not a [place] [address] PAIN MANAGEMENT CONSULTATION Name: JASMINSABIHA Cj Room #: REG [facility] Melvina#: [id number] Admission: 12/17/18 Attend Phys: Ginger Mast Discharge: Date of : 47 Report #: [id number] alcohol. According to the prescription monitoring system, the patient filled in October and has a prescription at the pharmacy, waiting to be picked up today for her OxyContin. There is a drug screen on the chart that is within last year that is appropriate for her medications. PHYSICAL EXAMINATION: GENERAL: This is a well-developed, well-nourished, well-hydrated 73-year-old female who appears her stated age, placing her current pain score today at 5/10. HEENT: Normocephalic, atraumatic. Pupils equal, reactive to light. She is legally blind. EXTREMITIES: No clubbing, no cyanosis, no edema. MUSCULOSKELETAL: Upper extremity strength judged to be symmetrical and equal at 5/5 as well as her lower extremity strength. Seated straight leg raising is negative. She does walk with a slightly antalgic gait, using a rolling walker. Complains of tenderness in her joints, especially her right shoulder today. IMPRESSION: 1. History of cervical radiculopathy. 2. Cervical spinal stenosis. 3. Hypertension. 4. Polyneuropathy. 5. Osteoarthritis of multiple joints. 6. Complex regional pain syndrome, upper and lower extremities. 7. Complex medical management, utilizing scheduled medications. We reviewed the fact that opiate medications are being used to provide analgesia adequate to support activities of daily living, not attempting to achieve a specific pain score on the 0-10 Visual Analog Scale. The current opiate medications are providing sufficient analgesia to allow the patient to participate in activities of daily living. The patient is not exhibiting any aberrant behavior suggestive of drug diversion. The patient is not having any adverse reactions to medications. The patient is not suffering from daytime somnolence or mental acuity changes. The patient is managing opiate-induced constipation with appropriate tlhb-udq-xmktytn agents and dietary considerations. The patient was counseled on concern for caution with operating a motor vehicle while using opiate medications. A physical exam was performed and the patient's functional status was evaluated. All patients with back pain were advised against the bed rest greater than 4 days and were advised to return to normal activities. Pain score assessment was noted and the treatment plan was reviewed with the patient. All current medications, both prescribed and OTC were reviewed and reconciled on the electronic medical record. Tobacco screening was accomplished and smoking cessation was advised when indicated. BMI was noted and diet/exercise [address] [address] PAIN MANAGEMENT CONSULTATION Name: SABIHA CASTELLANOS Room #: REG [facility]#: [id number] Admission: 12/17/18 Attend Phys: Ginger Mast Discharge: Date of : 47 Report #: [id number] modification was recommended for all patients following outside normal parameters. I reviewed with the patient today their responsibilities to safeguard prescription medications, reviewed their responsibility to utilize medications only as prescribed by the physician. They are to seek and receive pain medications only from 1 physician group ( [facility]). They are to use 1 pharmacy and keep the clinic informed if they change pharmacies. Their responsibilities include making followup visits in a timely fashion and to avoid abrupt discontinuation of medication usage. Their responsibilities further include bringing their medications (bottles from the pharmacy with residual pills) to the visit for possible confirmation of pill counts and the patient understands it is their responsibility to submit to random drug screens to ensure both that the medications prescribed are present, and that no other controlled substances are present. All prescriptions provided today were generated electronically. PLAN: 1. We discussed treatment options with the patient today. The patient is here requesting a prescription for her OxyContin. I explained to her that we need to get back on track of having her come every 2 months for medication, not coming on the day that she has filled her second month, therefore she has 3 months of medication. According to the CDC guidelines, we are trying to keep people under 50 MMEs, which she does follow on that, but therefore based on her dose, we are seeing her at 2-month intervals. I explained to the patient, she is able to fill today's script. We will release these on 01/12/2019 and 02/13/2019, then she is not to return to the clinic closer to her fill date and mid to late February, therefore less medication is in her possession to keep safe guarded at all times. The patient verbalizes understanding. She will make an appointment in February to see us. 2. The patient denies any problems with constipation. She does complain of some slight daytime sleepiness, but feels that it is also related to increased activity. 3. The patient has been using her Voltaren gel, finds it very beneficial, but does not need prescription refills today as well as the Lyrica. She does not need refills of that medication today. 4. Dr. Salvador Robbins collaborated care and did see the patient as well today. <ELECTRONICALLY SIGNED> By: Ginger Mast 12/19/18 [id number] [id number] Ginger Mast /nt
== END ==
LOC: PAIN 06:58
DX: M54.12 Radiculopathy, cervical region (principal); M48.02 Spinal stenosis, cervical region; I10 Essential (primary) hypertension; G62.9 Polyneuropathy, unspecified; M19.90 Unspecified osteoarthritis, unspecified site; Z79.891 Long term (current) use of opiate analgesic

== ENCOUNTER → 2019-03-10 | Outpatient (CLI) | payer OTHER ==
[~2019-03-10] VITALS: Ht 154.9 cm; Wt 67.9 kg
[2019-03-10 10:29] VITALS: BP 133/71
--- NOTE | 2019-03-10 10:47 | NUR ---
Pain Clinic Assessment: 1. History of Osteoarthritis: B/L HIPS, FEET, SPINE KNEES, SHOULDERS, ELBOW, HANDS History of Rheumatoid Arthritis: Not Applicable 2. Height: 5 ft. 1 in. 154.9 cm. Weight: 149.8 lb. oz. 67.949 kg. Patient's BMI: 28.3 3. Vital Signs: BP: 133/71 Pulse: 72 Resp: 18 Temp: 02 Sat: 97 ECG Mon: 4. Pain Intensity: 4 5. Fall Risk: Dizziness: Y Needs help standing or walking: Y Fallen in the last 3 months: N Fall risk comments: 6. Patient on Blood Thinner: None 7. History of Hypertension: Y 8. Opioid Therapy greater than 6 weeks: Y Opiate Contract Signed: 11/03/15 9. Risk Assessment Tool Provided: LOW RISK 10. Functional Assessment Tool: 11. Recreational Drug Use: Never Drug Type: Tobacco Use: Never Smoker Tobacco Type: Amount or Packs/day: How Many Years: Alcohol Use: No Frequency: Quant:
--- NOTE | 2019-03-11 09:41 | HPC ---
[facility] [place] [address] PAIN MANAGEMENT CONSULTATION Name: SABIHA CASTELLANOS [id number] Admission: 03/10/19 Attend Phys: Ginger Mast Discharge: Date of : 47 Report #: [id number] THIS REPORT FOR: //name// CC: Ginger Medina MD DATE OF SERVICE: 03/10/2019 CHIEF COMPLAINT: Bilateral lower extremity pain, bilateral knee pain and neuropathy. HISTORY OF PRESENT ILLNESS: This is a very pleasant 73-year-old female who returns to the pain clinic today for refill of her medications. She reports that she has been doing quite well on her current regimen of medications, though her primary care doctor has recently stopped her Celebrex. He has worried about cardiac side effects, though the patient has not suffered any of these. She feels that stopping her Celebrex has caused her some increased pain in her lower back and joints. She has spoken with her clinical courier. He is going to try to discuss this matter with her primary care doctor. She feels that the patient had been stable on her Celebrex for quite some time with no problems and the benefits of that medication to keep her active and with less pain. The patient does report that her pain score is a 4/10 today. Again, it is in her lower back and joints and she also suffers from neuropathy in her bilateral feet. She feels that her OxyContin and her Lyrica that she takes one tablet at bedtime are very beneficial. She does not tolerate medicines very well, but feels like the current regimen she is on has been beneficial. ALLERGIES: CYMBALTA, STATINS, CODEINE, ASPIRIN, BACLOFEN, HYDROCHLOROTHIAZIDE, INDOMETHACIN, QUINAPRIL, AMBIEN AND PLAVIX. CURRENT LIST OF MEDICATIONS: OxyContin 10 mg b.i.d., Lyrica 25 mg at bedtime, diclofenac gel p.r.n., simethicone, Norvasc, pumpkin seed, Climara, prednisone, Toprol, Myrbetriq, lisinopril, Lovaza, multivitamin, iron, vitamin D, B12, vitamin D3, fenofibrate, Protonix, Lamictal and Zetia. PATIENT'S PQRS: 1. The patient has a history of osteoarthritis in multiple joints as well as rheumatoid arthritis and is being treated for. 2. Height is 5 feet 1 inch, weight is 149, BMI is 28.3. 3. Vital signs 133/71, pulse is 72, respirations 18, oxygen sat is 97. 4. Pain score is 4/10. 5. Complains of dizziness. Does use a walker at all times[place] [address] PAIN MANAGEMENT CONSULTATION Name: SABIHA CASTELLANOS Room #: REG [facility] Melvina#: [id number] Admission: 03/10/19 Attend Phys: Ginger Mast Discharge: Date of : 47 Report #: [id number] the last 3 months. 6. The patient is not on any blood thinners, but does take medicine for hypertension. 7. Opioid therapy is greater than 6 weeks; therefore, an opioid signed contract is on the chart. Risk assessment tool is low. Functional assessment is 1870. 8. Recreational drug use, she denies. She is not a smoker and does not drink alcohol. According to the prescription monitoring system, the patient is filling appropriately for her medications. She is due this week to refill these medicines. According to the CDC guidelines, her morphine mEq per day is 30 MME. PHYSICAL EXAMINATION: GENERAL: This is a well-developed, well-nourished, well-hydrated 73-year-old female who appears her stated age, placing her current pain score at 4/10. HEENT: Normocephalic, atraumatic. Pupils equal. She is legally blind. EXTREMITIES: No clubbing, no cyanosis, no edema. MUSCULOSKELETAL: She has pain and tenderness across her lumbar spine. Seated straight leg raising is negative. She walks with a slightly antalgic gait using a walker. She has tenderness in all of her joints, numbness and tingling in her bilateral feet. Her upper and lower extremity strength judged to be equal at 5/5. IMPRESSION: 1. History of cervical radiculopathy. 2. Cervical spinal stenosis. 3. Low back pain. 4. Polyneuropathy. 5. Osteoarthritis of multiple joints. 6. Complex regional pain syndrome. 7. Complex medical management using scheduled medications. 8. Idiopathic scoliosis. We reviewed the fact that opiate medications are being used to provide analgesia adequate to support activities of daily living, not attempting to achieve a specific pain score on the 0-10 Visual Analog Scale. The current opiate medications are providing sufficient analgesia to allow the patient to participate in activities of daily living. The patient is not exhibiting any aberrant behavior suggestive of drug diversion. The patient is not having any adverse reactions to medications. The patient is not suffering from daytime somnolence or mental acuity changes. The patient is managing opiate-induced constipation with appropriate qxyn-ibn-dimkpyb agents and dietary considerations. The patient was counseled on concern for caution with operating a motor vehicle while using opiate medications. PLAN: 1. We discussed treatment options with the patient today. The patient finds her OxyContin very beneficial in controlling her pain. She would like refills [facility] [address] [place] [address] PAIN MANAGEMENT CONSULTATION Name: SABIHA CASTELLANOS Room #: REG [facility]#: [id number] Admission: 03/10/19 Attend Phys: Ginger Mast Discharge: Date of : 47 Report #: [id number] of those medications today. We will electronically send her OxyContin 10 mg b.i.d., #60 for today and 4-week release. 2. The patient is not needing Lyrica refills presently or Voltaren gel. The patient does find both these medicines very beneficial. 3. The patient informed me that she is no longer on Celebrex. She is discussing this issue with her clinical courier and her primary care doctor. She finds that that medicine was very beneficial in controlling her osteoarthritis and joint pain along with her fibromyalgia. I encouraged the patient to use her Voltaren gel as she needed if her joints do have increase in pain. The patient is not needing a refill of that medicine today. 4. We did discuss a new medication that is coming on the market hopefully this summer. Dr. Robbins had spoken with the patient about. She would be given this injection once every 6-8 weeks and then she will no longer be on her OxyContin. The patient is hopeful to be able to be a candidate for that this summer. I explained to the patient that we will discuss this more in depth when the FDA has approved this medication. 5. The patient is seen in collaboration with Dr. Salvador Robbins today. <ELECTRONICALLY SIGNED> By: Ginger Mast 03/11/19 0941 [id number] Ginger Mast /nt
== END ==
LOC: PAIN 06:42
DX: M25.561 Pain in right knee (principal); M25.562 Pain in left knee; M54.12 Radiculopathy, cervical region; M48.061 Spinal stenosis, lumbar region without neurogenic claudication; G62.9 Polyneuropathy, unspecified; M54.5 Low back pain; M19.90 Unspecified osteoarthritis, unspecified site; G89.4 Chronic pain syndrome; M41.80 Other forms of scoliosis, site unspecified; Z79.899 Other long term (current) drug therapy

== ENCOUNTER → 2019-05-05 | Outpatient (CLI) | payer OTHER ==
[~2019-05-05] VITALS: Ht 154.9 cm; Wt 68.7 kg
[~2019-05-05] MED LIST changes: +CARAFATE 11 GM/10 M1 PO; +MEDROLDOSEPACK PO; +ONDANSETRON HCL4 M2 PO; +PROAIR HFA8.5 GM INH
--- NOTE | ~2019-05-05 | HPC ---
[facility] [address] [place] [address] PAIN MANAGEMENT CONSULTATION Name: SABIHA CASTELLANOS Room #: REG [facility].#: [id number] Admission: 05/05/19 Attend Phys: Salvador Robbins DO Discharge: Date of : 46 Report #: [id number] THIS REPORT FOR: cc: Rusty Aviles MD,Salvador Grimaldo MD, DO ~ CC: Salvador Aviles MD DATE OF SERVICE: 05/05/2019 CHIEF COMPLAINT: Bilateral lower extremity pain, bilateral knee pain and peripheral neuropathy. HISTORY OF PRESENT ILLNESS: As you know, the patient is a very pleasant 73-year-old female who returns to our clinic requesting refill of medications for which she takes OxyContin twice a day, utilizing Voltaren gel applied topically to affected joints for ongoing pain involving bilateral shoulders, bilateral knees. She is denying side effects to medication and wishing refills of the therapy. She is placing pain score today at 4/10. She states that over the past week, her neck pain had improved, but prior to that she had near 2 weeks of neck pain, mainly on the right side after undergoing Apley's maneuvers for vertigo. The patient states that the pain began during the Apley maneuvers, but took nearly a week to resolve. She returns to discuss this and refill of medications. ALLERGIES: CYMBALTA, STATINS, CODEINE, ASPIRIN, BACLOFEN, HYDROCHLOROTHIAZIDE, INDOMETHACIN, QUINAPRIL, AMBIEN, AND PLAVIX. CURRENT MEDICATIONS: OxyContin 10 mg b.i.d., Lyrica 25 mg p.o. at bedtime, diclofenac gel applied topically up to twice a day, simethicone, Norvasc, pumpkin seeds, Climara, Toprol, Myrbetriq, lisinopril, Lovaza, multivitamin, aspirin, vitamin D, vitamin B12, vitamin D3, fenofibrate, Protonix, Lamictal and Zetia. SOCIAL HISTORY: The patient denies tobacco, alcohol, IV or illicit drug use. She is retired. She is accompanied by significant other. PQRS: The patient has known arthritic changes of the cervical spine, lumbar spine, bilateral hips, knees and shoulders. She does have a history of rheumatoid arthritis. She is placing pain intensity 4/10. She is a fall risk, but has not had a fall in last 3 months. She is not utilizing any type of ambulatory device. She is not on blood thinners, but is treated for hypertension. She is on chronic opioids, has a low opiate addiction potential. Pain impact score 18 of 70 indicating mild interference [place] [address] PAIN MANAGEMENT CONSULTATION Name: SABIHA CASTELLANOS Room #: REG [facility] Deshaun.#: [id number] Admission: 05/05/19 Attend Phys: Salvador Robbins DO Discharge: Date of : 46 Report #: [id number] secondary to pain. IMAGING: There is no new imaging available. PHYSICAL EXAMINATION: VITAL SIGNS: Blood pressure 133/71, pulse 72 and respiratory rate 18 and unlabored. The patient is 97% on room air. Height 5 feet 1 inch tall, weight 149.8 pounds, BMI calculated 28.3. GENERAL: Well-developed, well-nourished, well-hydrated 73-year-old female appearing stated age. She is in no acute distress, awake, alert, oriented x 3, pain is rated now 4/10. HEENT: Normocephalic, atraumatic. EXTREMITIES: Show no clubbing, no cyanosis, and no edema. MUSCULOSKELETAL: Upper extremity strength is weakened bilaterally though symmetrical in nature. There is some palpatory tenderness over the paraspinal musculature of cervical spine. No spinous process tenderness. Spurling's test is negative. Cervical provocation testing is met with some increasing pain, mainly on the right side, appears to be facet generated. There is palpatory tenderness over the lower lumbar spine. No spinous process tenderness. Pain is elicited with standing from seated position. ASSESSMENT: 1. Chronic cervical radiculopathy. 2. Cervical spondylosis with radicular symptoms. 3. Osteoarthritis of the cervical spine. 4. Low back pain. 5. Polyneuropathy. 6. Osteoarthritis of multiple joints. 7. History of complex regional pain syndrome. 8. Complex medication management. 9. Idiopathic scoliosis. 10. Opioid dependency. PLAN: 1. The patient returns today in followup visit requesting refill on medications. She feels medications are working beneficially for pain control. The patient indicates the pain that she has on a typical basis is well controlled with the OxyContin and Voltaren gel combination. She wishes refill on these medications today. 2. We reviewed the fact that opiate medications are being used to provide analgesia adequate to support activities of daily living, not attempting to achieve a specific pain score on the 0-10 Visual Analog Scale. The current opiate medications are providing sufficient analgesia to allow the patient to participate in activities of daily living. The patient is not exhibiting any aberrant behavior suggestive of drug diversion. The patient is not having any adverse reactions to medications. The patient is not suffering from daytime [facility] [address] [place] [address] PAIN MANAGEMENT CONSULTATION Name: SABIHA CASTELLANOS Room #: REG [facility]#: [id number] Admission: 05/05/19 Attend Phys: Salvador Robbins DO Discharge: Date of : 46 Report #: [id number] somnolence or mental acuity changes. The patient is managing opiate-induced constipation with appropriate kpvi-yzc-[id number] agents and dietary considerations. The patient was counseled on concern for caution with operating a motor vehicle while using opiate medications. A physical exam was performed and the patient's functional status was evaluated. All patients with back pain were advised against the bed rest greater than 4 days and were advised to return to normal activities. Pain score assessment was noted and the treatment plan was reviewed with the patient. All current medications, both prescribed and OTC were reviewed and reconciled on the electronic medical record. Tobacco screening was accomplished and smoking cessation was advised when indicated. BMI was noted and diet/exercise modification was recommended for all patients following outside normal parameters. I reviewed with the patient today their responsibilities to safeguard prescription medications, reviewed their responsibility to utilize medications only as prescribed by the physician. They are to seek and receive pain medications only from 1 physician group ( [facility]). They are to use 1 pharmacy and keep the clinic informed if they change pharmacies. Their responsibilities include making followup visits in a timely fashion and to avoid abrupt discontinuation of medication usage. Their responsibilities further include bringing their medications (bottles from the pharmacy with residual pills) to the visit for possible confirmation of pill counts and the patient understands it is their responsibility to submit to random drug screens to ensure both that the medications prescribed are present, and that no other controlled substances are present. All prescriptions provided today were generated electronically. 3. The patient was provided prescription of OxyContin 10 mg dose 1 tab p.o. b.i.d. I have given the patient #60 tablets to release today and 4 weeks from today, 2 months' worth of medication. 4. The patient was provided refill prescription of her Voltaren gel to apply topically up to 4 times a day 2 inches or essentially 2 grams with 2 refills, 3 months' worth of medication. 5. The patient was complaining of increased neck pain, mainly on the right side. It does not appear the patient suffered any radicular symptoms during this episode, appears to be more related to the facet joints of the cervical spine. This would correlate with the findings of previous imaging of the cervical region. The fact that it was exacerbated with Apley's maneuver is also consistent with facet arthropathy pain. We discussed treatment options with the patient today. Following was discussed with the patient. We discussed physical therapy, stretching exercises and traction techniques as a way to improve mobility and reduce overall pain. This is a very conservative approach. We discussed medication management utilizing anti-inflammatory medication for baseline pain control, escalating opioids is not recommended for [address] [address] PAIN MANAGEMENT CONSULTATION Name: SABIHA CASTELLANOS Room #: REG [facility]#: [id number] Admission: 05/05/19 Attend Phys: Salvador Robbins DO Discharge: Date of : 46 Report #: [id number] facet arthropathy pain. We discussed intra-articular facet injections and cervical epidural injections as a way to address ongoing pain. We also discussed adjustments in medication management, possibly adding a Medrol Dosepak if her pain does return. After reviewing the risks and benefits of all proposed treatment options, the patient chose to begin with conservative oral medication. 6. The patient was provided prescription of Medrol Dosepak. She is to take this pack only when her neck pain is intolerable. She will take the medication in hopes of improving pain. If this does not work, then return for injections. 7. We will see the patient back in followup visit in 2 months for medication management, earlier if we need to address increasing neck pain. By: [id number] Salvador Robbins DO /nt
[2019-05-05 11:06] VITALS: BP 129/63
--- NOTE | 2019-05-05 11:34 | NUR ---
Pain Clinic Assessment: 1. History of Osteoarthritis: B/L HIPS, FEET, SPINE KNEES, SHOULDERS, ELBOW, HANDS History of Rheumatoid Arthritis: Not Applicable 2. Height: 5 ft. 1 in. 154.9 cm. Weight: 151.4 lb. oz. 68.675 kg. Patient's BMI: 28.6 3. Vital Signs: BP: 129/63 Pulse: 62 Resp: 16 Temp: 02 Sat: 98 ECG Mon: 4. Pain Intensity: 3 5. Fall Risk: Dizziness: Y Needs help standing or walking: Y Fallen in the last 3 months: N Fall risk comments: 6. Patient on Blood Thinner: None 7. History of Hypertension: Y 8. Opioid Therapy greater than 6 weeks: Y Opiate Contract Signed: 11/03/15 9. Risk Assessment Tool Provided: LOW RISK 10. Functional Assessment Tool: 11. Recreational Drug Use: Never Drug Type: Tobacco Use: Never Smoker Tobacco Type: Amount or Packs/day: How Many Years: Alcohol Use: No Frequency: Quant:
== END ==
LOC: PAIN 06:51
DX: M47.22 Other spondylosis with radiculopathy, cervical region (principal); M19.90 Unspecified osteoarthritis, unspecified site; M41.80 Other forms of scoliosis, site unspecified; F11.20 Opioid dependence, uncomplicated; G62.9 Polyneuropathy, unspecified; Z88.5 Allergy status to narcotic agent; Z88.1 Allergy status to other antibiotic agents; Z88.3 Allergy status to other anti-infective agents; Z79.899 Other long term (current) drug therapy; Z79.82 Long term (current) use of aspirin

== ENCOUNTER → 2019-08-04 | Outpatient (CLI) | payer OTHER ==
[~2019-08-04] VITALS: Ht 154.9 cm; Wt 71.2 kg
[~2019-08-04] MED LIST changes: +REGLAN 5 MG TAB5 MG PO
[2019-08-04 12:47] VITALS: BP 138/73
--- NOTE | 2019-08-04 12:51 | NUR ---
Pain Clinic Assessment: 1. History of Osteoarthritis: B/L HIPS, FEET, SPINE KNEES, SHOULDERS, ELBOW, HANDS History of Rheumatoid Arthritis: DENIES 2. Height: 5 ft. 1 in. 154.9 cm. Weight: 157.0 lb. oz. 71.215 kg. Patient's BMI: 29.7 3. Vital Signs: BP: 138/73 Pulse: 74 Resp: 14 Temp: 02 Sat: 96 ECG Mon: 4. Pain Intensity: 4 5. Fall Risk: Dizziness: Y Needs help standing or walking: N Fallen in the last 3 months: N Fall risk comments: WALKER 6. Patient on Blood Thinner: None 7. History of Hypertension: Y 8. Opioid Therapy greater than 6 weeks: Y Opiate Contract Signed: 11/03/15 9. Risk Assessment Tool Provided: LOW RISK 10. Functional Assessment Tool: 11. Recreational Drug Use: Never Drug Type: Tobacco Use: Never Smoker Tobacco Type: Amount or Packs/day: How Many Years: Alcohol Use: No Frequency: Quant:
--- NOTE | 2019-08-05 13:15 | HPC ---
[facility] [place] [address] PAIN MANAGEMENT CONSULTATION Name: SABIHA CASTELLANOS Room #: REG [facility].#: [id number] Admission: 08/04/19 Attend Phys: Salvador Robbins DO Discharge: Date of : 46 Report #: [id number] THIS REPORT FOR: cc: Rusty Aviles MD,Salvador Grimaldo MD, DO ~ DATE OF SERVICE: 08/04/2019 REFERRING PHYSICIAN: Rusty Aviles MD CHIEF COMPLAINT: Bilateral lower extremity pain, bilateral knee pain, peripheral neuropathic pain and fibromyalgia. HISTORY OF PRESENT ILLNESS: As you know, the patient is a very pleasant 74-year-old female returning in followup visit requesting refill on medications. She takes medications for bilateral lower extremity pain, bilateral knee pain and peripheral neuropathy. She is treated for her fibromyalgia pain with other medications. She takes OxyContin 10 mg twice a day with good efficacy. She is denying side effects of sleepiness, disorientation, confusion, mental slowing with the use of therapy. She feels medications are working beneficially for pain control despite the fact that she is providing a pain score of 4/10 today. She returns in to receive refill of medications for the next 2 months. She has been under quarantine at her facility due to COVID pandemic. She was recently released from quarantine to make today's appointment, but asked to return to quarantine for the next 2 weeks per the facility's recommendations. She indicates that quarantine has not been too difficult for her as she "just does not do that much." She returns today for medication management. ALLERGIES: CYMBALTA, STATINS MEDICATIONS, CODEINE, ASPIRIN, BACLOFEN, HYDROCHLOROTHIAZIDE, INDOMETHACIN, QUINAPRIL, AMBIEN, AND PLAVIX. CURRENT MEDICATIONS: OxyContin 10 mg b.i.d., Lyrica 25 mg p.o. at bedtime, diclofenac gel 1% solution applied topically up to 4 times a day, albuterol 2 puffs q. 4 hours p.r.n., prednisone 1 mg twice a day, ondansetron 4 mg p.r.n., hydralazine 50 mg p.o. at bedtime, sucralfate 1 gram twice a day, simethicone gas relief p.r.n., amlodipine 5 mg 1 tab in the morning and 1 tablet at night, estradiol 1 patch per week, metoprolol 25 mg per day, Myrbetriq 50 mg per day, lisinopril 20 mg per day, omega-3 fish oil 1 tab per day, multivitamin 1 tab per day, ferrous sulfate 325 mg per day, fluticasone 2 sprays each nostril per day, cyanocobalamin 250 mcg per day, cholecalciferol 2000 units per day, fenofibrate 145 mg per day, pantoprazole 40 mg once a day, Lamictal 25 mg twice a day, Zetia 10 mg once a day. SOCIAL HISTORY: The patient denies tobacco, alcohol, IV or illicit drug use. She is retired and retired years ago. She is unaccompanied at today's visit. [address] [address] PAIN MANAGEMENT CONSULTATION Name: JASMINSABIHA Corona Room #: REG [facility] Deshaun.#: [id number] Admission: 08/04/19 Attend Phys: Salvador E. Rosendo, DO Discharge: Date of : 46 Report #: [id number] IMAGING: No new imaging available. PQRS: The patient has known arthritic changes of the cervical spine, lumbar spine, bilateral hips, bilateral knees, bilateral shoulders and bilateral hands. No rheumatoid arthritis. She is placing the pain intensity today at 4/10. She is a fall risk, but has not had a fall in last 3 months. She utilizes a walker for ambulation. She is not on blood thinners, but is treated for hypertension. She is on chronic opioids and has a low opioid addiction potential. Pain impact score 18/70, mild interference of daily activities secondary to pain. PHYSICAL EXAMINATION: VITAL SIGNS: Blood pressure 138/73, pulse 74, respiratory rate 14 and unlabored. The patient is 96% on room air. Height 5 feet 1 inch tall, weight 157 pounds, BMI calculated 29.7. GENERAL: Well-developed, well-nourished, well-hydrated 74-year-old female appearing stated age, pain is rated around 4/10. HEENT: Normocephalic, atraumatic. Extraocular muscles are intact. Speech is fluent. EXTREMITIES: Show no clubbing, no cyanosis, no edema. MUSCULOSKELETAL: Upper extremity strength is weakened bilaterally, again noted today. This appears to be due to deconditioning. Palpatory tenderness over the paraspinal musculature of cervical spine. No spinous process tenderness. Spurling's test is negative. Cervical provocation testing is once again met with some increase in pain and mild restriction of motion. There is tenderness to palpation over the paraspinal musculature of the thoracic spine. No spinous process tenderness and no trigger points identified. There is tenderness over the paraspinal musculature of lower lumbar spine. No spinous process tenderness. Pain is elicited from a seated to a standing position. ASSESSMENT: 1. Cervical radiculopathy. 2. Cervical spondylosis with radiculopathy. 3. Osteoarthritis of the cervical spine. 4. Chronic low back pain. 5. Polyneuropathy. 6. Complex medication management utilizing scheduled medications. 7. Opioid dependency. PLAN: 1. The patient returns today in followup visit requesting to receive refill of medications. She has been undergo quarantine at her facility for COVID-19 and has recently been released from quarantine, unfortunately, leaving her facility and coming to our office today, now places her back on quarantine for 2 more weeks. She is agreeable with undergoing continuation of medication management today. She denies side effects of sleepiness, disorientation, confusion, mental [facility] [address] [place] [address] PAIN MANAGEMENT CONSULTATION Name: SABIHA CASTELLANOS Room #: REG [facility]#: [id number] Admission: 08/04/19 Attend Phys: Salvador Robbins DO Discharge: Date of : 46 Report #: [id number] slowing or constipation with the use of medication. She states that being under self-quarantine is not causing her much of a problem as "she does not do that much anyhow." She returns today for medication management. 2. We reviewed the fact that opiate medications are being used to provide analgesia adequate to support activities of daily living, not attempting to achieve a specific pain score on the 0-10 Visual Analog Scale. The current opiate medications are providing sufficient analgesia to allow the patient to participate in activities of daily living. The patient is not exhibiting any aberrant behavior suggestive of drug diversion. The patient is not having any adverse reactions to medications. The patient is not suffering from daytime somnolence or mental acuity changes. The patient is managing opiate-induced constipation with appropriate grxo-vew-ibfweai agents and dietary considerations. The patient was counseled on concern for caution with operating a motor vehicle while using opiate medications. A physical exam was performed and the patient's functional status was evaluated. All patients with back pain were advised against the bed rest greater than 4 days and were advised to return to normal activities. Pain score assessment was noted and the treatment plan was reviewed with the patient. All current medications, both prescribed and OTC were reviewed and reconciled on the electronic medical record. Tobacco screening was accomplished and smoking cessation was advised when indicated. BMI was noted and diet/exercise modification was recommended for all patients following outside normal parameters. I reviewed with the patient today their responsibilities to safeguard prescription medications, reviewed their responsibility to utilize medications only as prescribed by the physician. They are to seek and receive pain medications only from 1 physician group ( [facility]). They are to use 1 pharmacy and keep the clinic informed if they change pharmacies. Their responsibilities include making followup visits in a timely fashion and to avoid abrupt discontinuation of medication usage. Their responsibilities further include bringing their medications (bottles from the pharmacy with residual pills) to the visit for possible confirmation of pill counts and the patient understands it is their responsibility to submit to random drug screens to ensure both that the medications prescribed are present, and that no other controlled substances are present. All prescriptions provided today were generated electronically. 3. The patient was provided a prescription of OxyContin 10 mg dose 1 tab p.o. b.i.d. I have given the patient #60 tablets, releasing today and 4 weeks from today, 2 months' worth of medication. I did advise the patient if quarantine restriction present in 2 months, we would be willing to provide one more month worth of medication to her. This should limit her need to undergo multiple self- quarantines. We will determine if this is necessary in 2 months. [facility] [address] [place] [address] PAIN MANAGEMENT CONSULTATION Name: SABIHA CASTELLANOS Room #: REG [facility]#: [id number] Admission: 08/04/19 Attend Phys: Salvador Robbins DO Discharge: Date of : 47 Report #: [id number] 4. We will see the patient back in 2 months for refill of medications and discuss other options for treatment. <ELECTRONICALLY SIGNED> By: Salvador Robbins DO 08/05/19 1315 [id number] Salvador Robbins DO /nt
== END ==
LOC: PAIN 06:52
PROVIDERS: ATTEND Anesthesiology Pain Medicine
DX: M47.22 Other spondylosis with radiculopathy, cervical region (principal); M16.0 Bilateral primary osteoarthritis of hip; M17.0 Bilateral primary osteoarthritis of knee; G62.9 Polyneuropathy, unspecified; M19.042 Primary osteoarthritis, left hand; M19.041 Primary osteoarthritis, right hand; F11.20 Opioid dependence, uncomplicated

== ENCOUNTER → 2019-09-29 | Outpatient (CLI) | payer OTHER ==
--- NOTE | 2019-09-30 07:21 | HPC ---
[facility] [place] [address] PAIN MANAGEMENT CONSULTATION Name: SABIHA CASTELLANOS Room #: REG [facility]#: [id number] Admission: 09/29/19 Attend Phys: Ginger Mast Discharge: Date of : 47 Report #: [id number] THIS REPORT FOR: cc: Rusty Aviles MD, Randy MD Hocker,Ginger VELASQUEZ ~ CC: Salvador Robbins DO DATE OF SERVICE: 09/29/2019 CHIEF COMPLAINT: Bilateral lower extremity pain, peripheral neuropathy pain and fibromyalgia. This is a Telemed appointment from 12:45 to 1:00 that the patient is consenting to do today due to a COVID exposure of a caregiver in her long-term care facility, so she is under quarantine. HISTORY OF PRESENT ILLNESS: As you know, this is a very pleasant 74-year-old female who I am speaking with today for a teleconference due to the patient being in quarantine. Unfortunately a CORRUGATOR SUPERVISOR exposed several of the residents to COVID virus and so at this time all of them have been tested. They do not have the results back, but the patient reports she is feeling fine, has not had any signs of COVID and she is not experiencing a fever, but today she is at home, so we are speaking over the telephone. The patient does report today she is having a good "pain day," rating her pain score 3/10. Last week when the weather was raining, her pain and her osteoarthritis was definitely increased. She reports that she takes her medication for bilateral lower extremity pain, knee pain and her peripheral neuropathy. She does take Lyrica for her fibromyalgia and finds that effective as well. She denies any problems or side effects of daytime somnolence. She does occasionally have constipation as a result of numerous medications that she takes. Her pain is increased with any activity, standing and walking. The patient does report she has been seeing a urologist for her ongoing incontinence issues. 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 She is going for more testing at the end of October in regards to this issue. ALLERGIES: CYMBALTA, STATINS, CODEINE, ASPIRIN, BACLOFEN, HYDROCHLOROTHIAZIDE, INDOMETHACIN, QUINAPRIL, AMBIEN AND PLAVIX. CURRENT MEDICATIONS: OxyContin 10 mg b.i.d., Lyrica 25 mg at bedtime, diclofenac gel p.r.n. and then see extensive list. PQRS: [address] [address] PAIN MANAGEMENT CONSULTATION Name: SABIHA CASTELLANOS Room #: REG [facility].#: [id number] Admission: 09/29/19 Attend Phys: Ginger Mast Discharge: Date of : 47 Report #: [id number] 1. She does have multiple joints of osteoarthritis affecting hips, feet, spine, knees, shoulders, elbows and hands, very diffuse. She denies any rheumatoid arthritis. 2. Height, weight is deferred. She did take her vital signs this morning and they were 147/71, heart rate was 71, temperature was 97.4. 3. Pain score is 3/10 today. Fall risk, has slight dizziness. Does use a walker at all times and has not fallen in the last 3 months. She is not on any blood thinners, but does take medicine for hypertension. Her opioid therapy is greater than 6 weeks; therefore, an opioid signed contract is on the chart. Risk assessment tool is low. Functional assessment is 1870. 4. Recreational drug use, she denies. She is not a smoker and does not drink alcohol. According to the prescription monitoring system, she is due to fill her OxyContin next week. Her morphine mEq according to the CDC guidelines is 30 MME per day. PHYSICAL EXAMINATION: This is a review of systems being a telemedicine appointment today. PHYSICAL EXAMINATION: GENERAL: This is alert and orientated, very pleasant 74-year-old who is answering all my questions appropriately. She is a very good historian. HEENT: Speech is fluent. MUSCULOSKELETAL: The patient reports no edema. She does have pain in her neck, especially with movements. She has tenderness in her lower lumbar spine. Does use a walker for ambulation. ASSESSMENT: 1. Cervical radiculopathy. 2. Cervical spondylosis with radiculopathy. 3. Osteoarthritis affecting multiple joints. 4. Chronic low back pain. 5. Polyneuropathy. 6. Complicated medical management under terms of written opioid agreement. We reviewed the fact that opiate medications are being used to provide analgesia adequate to support activities of daily living, not attempting to achieve a specific pain score on the 0-10 Visual Analog Scale. The current opiate medications are providing sufficient analgesia to allow the patient to participate in activities of daily living. The patient is not exhibiting any aberrant behavior suggestive of drug diversion. The patient is not having any adverse reactions to medications. The patient is not suffering from daytime somnolence or mental acuity changes. The patient is managing opiate-induced constipation with appropriate lajm-kvj-zmkhrso agents and dietary considerations. The patient was counseled on concern for caution with operating [facility] [address] [place] [address] PAIN MANAGEMENT CONSULTATION Name: SABIHA CASTELLANOS Room #: REG [facility]#: [id number] Admission: 09/29/19 Attend Phys: Ginger Mast Discharge: Date of : 47 Report #: [id number] a motor vehicle while using opiate medications. PLAN: 1. We discussed treatment options with the patient today. The patient finds her OxyContin very beneficial in controlling her pain. She is requesting refills for this month for this medication. She is under quarantine currently. She is due next week and she is aware that she will still be quarantined through that visit, so therefore we did this Telemed today. Dr. Salvador Robbins will send these electronically for today and 4 weeks supply. 2. The patient does continue her Lyrica and is not needing refills today. Does find that is beneficial with her fibromyalgia. 3. We did talk about constipation. The patient does have issues from time to time and only takes probiotic. We discussed MiraLax as an nnsj-slt-mzoygaf option. She may take it every day, every other day or every third day depending on what she needs. The patient will obtain this bxvx-tqm-jbspuun medication next week when she fills her OxyContin. 4. The patient will return to the clinic in 2 months. The patient is seen today in collaboration with Dr. Salvador Robbins. <ELECTRONICALLY SIGNED> By: Ginger Mast 09/30/19 0721 [id number] Ginger Mast /akila
== END ==
LOC: TELEPC 06:52 → PAIN 11:37
PROVIDERS: ATTEND Clinical Nurse Specialist Adult Health
DX: G62.9 Polyneuropathy, unspecified (principal); M47.22 Other spondylosis with radiculopathy, cervical region; M79.604 Pain in right leg; M79.605 Pain in left leg; M79.7 Fibromyalgia; M19.90 Unspecified osteoarthritis, unspecified site; G89.29 Other chronic pain; F11.20 Opioid dependence, uncomplicated; Z88.8 Allergy status to other drugs, medicaments and biological substances; Z79.899 Other long term (current) drug therapy

== ENCOUNTER → 2019-12-01 | Outpatient (CLI) | payer OTHER ==
[~2019-12-01] VITALS: Ht 154.9 cm; Wt 70.8 kg
[~2019-12-01] MED LIST changes: +AZO URINARY P99.5 MG PO; +CBD OIL; +ESTRACE42.5 GM VAG; +METFORMIN HCL500 M3 PO; +RAYOS2 MG PO; +TOVIAZ4 M1 PO; +VASCAZEN CAPSU1 EACH PO
[2019-12-01 12:43] VITALS: BP 129/66
--- NOTE | 2019-12-01 12:46 | NUR ---
Pain Clinic Assessment: 1. History of Osteoarthritis: B/L HIPS, FEET, SPINE KNEES, SHOULDERS, ELBOW, HANDS History of Rheumatoid Arthritis: DENIES 2. Height: 5 ft. 1 in. 154.9 cm. Weight: 156.0 lb. oz. 70.761 kg. Patient's BMI: 29.5 3. Vital Signs: BP: 129/66 Pulse: 82 Resp: 16 Temp: 02 Sat: 94 ECG Mon: 4. Pain Intensity: 3 5. Fall Risk: Dizziness: N Needs help standing or walking: N Fallen in the last 3 months: N Fall risk comments: WALKER 6. Patient on Blood Thinner: None 7. History of Hypertension: Y 8. Opioid Therapy greater than 6 weeks: Y Opiate Contract Signed: 11/03/15 9. Risk Assessment Tool Provided: LOW RISK-0 10. Functional Assessment Tool: 11. Recreational Drug Use: Never Drug Type: Tobacco Use: Never Smoker Tobacco Type: Amount or Packs/day: How Many Years: Alcohol Use: No Frequency: Quant:
--- NOTE | 2019-12-02 11:10 | HPC ---
[facility] [place] [address] PAIN MANAGEMENT CONSULTATION Name: SABIHA CASTELLANOS Room #: REG [facility].#: [id number] Admission: 12/01/19 Attend Phys: Ginger Mast Discharge: Date of : 47 Report #: [id number] CC: Ginger Mast Rusty Aviles DATE OF SERVICE: 12/01/2019 CHIEF COMPLAINT: Bilateral lower extremity pain, peripheral neuropathy, and fibromyalgia. HISTORY OF PRESENT ILLNESS: This is a 74-year-old female who returns to the pain clinic today for refill of her opioid medications. Today, she is reporting some increased pain in her left shoulder area as a result of her fibromyalgia, feeling that is very tender. She also complains of bilateral leg and foot pain with numbness and tingly. Rating her pain score at 3/10 today. She has been using diclofenac gel, as well as CBD oil on her feet and finds these very beneficial. She does report since the last visit here, she has been diagnosed as a xrh-dsdubig-zuiernags diabetic and has started on oral hypoglycemics. She states that her blood sugars have been stable. She lives in assisted living facility, so she is at home most of the time due to the COVID virus and our last visit with her was a telemed appointment due to an exposure by a learning support assistant there. The patient is requesting refills of her OxyContin today that she finds very beneficial and denies any side effects as a result of the medication. ALLERGIES: CYMBALTA, STATINS, CODEINE, ASPIRIN, BACLOFEN, HYDROCHLOROTHIAZIDE, INDOMETHACIN, QUINAPRIL, AMBIEN, AND PLAVIX. CURRENT MEDICATIONS: OxyContin 10 mg b.i.d., Voltaren gel, Lyrica 25 mg at bedtime, and see extensive list in the reconciled medications. PATIENT'S PQRS: 1. She denies any rheumatoid arthritis. She has osteoarthritic changes in her hips, feet, spine, shoulders, elbows, and hands. 2. Height is 5 feet 1 inch, weight is 156, BMI is 29. Vital signs 129/66, pulse is 82, respirations 16, oxygen sat is 94, pain score is 3/10. Fall risk. Denies dizziness. Does use a walker for ambulation and has not fallen in the last 3 months. The patient is not on any blood thinners, but does take medicine for hypertension. Her opioid therapy is greater than 6 weeks; therefore, an opioid signed contract is on the chart. Risk assessment is low. Functional assessment is 18/70. 3. Recreational drug use, she denies. She is not a smoker and does not drink alcohol. According to the prescription monitoring system, she is filling appropriately. She is due to fill her medications next week. There is a drug screen on the chart that is appropriate as well. PHYSICAL EXAMINATION: GENERAL: This is a well-developed, well-nourished 74-year-old female who appears her stated age, placing her current pain score at 3/10. HEENT: Normocephalic, atraumatic. She is blind. EXTREMITIES: No clubbing, no cyanosis, no edema. MUSCULOSKELETAL: Upper extremity strength is weakened bilaterally. She had palpatory tenderness over the trapezius and paraspinal musculature of the cervical spine. Spurling test is negative. Cervical provocation testing is met with increasing pain, more on the right than the left. She has tenderness and burning in her bilateral feet. Today, she is using a walker. Pain is elicited when standing from the seated position. ASSESSMENT: 1. Chronic cervical radiculopathy. 2. Cervical spondylosis with radicular symptoms. 3. Osteoarthritis of the cervical spine. 4. Low back pain. 5. Polyneuropathy. 6. Osteoarthritis of multiple joints. 7. Idiopathic scoliosis. 8. Fibromyalgia. 9. History of complex regional pain syndrome. 10. Complex medical management under written opioid agreement. PLAN: 1. We discussed treatment options with the patient today. She finds her OxyContin very beneficial, taking it twice a day. We will continue this medication to be released in 1-week and again 5 weeks later, these will be sent electronically by Dr. Salvador Robbins to her pharmacy. She is not needing refills of Lyrica presently. 2. We did discuss Voltaren gel and CBD oil. The patient finds both of these beneficial. She believes that the CBD oil does not contain any THC. I encouraged her to find out from the student. If it does indeed, she may need to switch products, but otherwise if she finds that beneficial in helping with her neuropathic foot pain, to continue that on an as-needed basis. 3. The patient will return in 2 months. Patient seen in collaboration with Dr Robbins today. <ELECTRONICALLY SIGNED> By: Ginger Mast 12/02/19 1110 1334 08 Ginger Mast /akila
== END ==
LOC: PAIN 06:53
PROVIDERS: ATTEND Clinical Nurse Specialist Adult Health
DX: M47.12 Other spondylosis with myelopathy, cervical region (principal); G62.9 Polyneuropathy, unspecified; M79.7 Fibromyalgia; M19.90 Unspecified osteoarthritis, unspecified site; F11.20 Opioid dependence, uncomplicated; Z88.8 Allergy status to other drugs, medicaments and biological substances; Z79.899 Other long term (current) drug therapy

== ENCOUNTER → 2020-02-02 | Outpatient (CLI) | payer OTHER ==
--- NOTE | 2020-02-03 15:07 | HPC ---
[facility] [address] [place] [address] PAIN MANAGEMENT CONSULTATION Name: SABIHA CASTELLANOS Room #: REG [facility].#: [id number] Admission: 02/02/20 Attend Phys: Ginger Mast Discharge: Date of : 47 Report #: [id number] THIS REPORT FOR: cc: Rusty Aviles MD, Randy MD Hocker,Ginger VELASQUEZ ~ DATE OF SERVICE: 02/02/2020 CHIEF COMPLAINT: Bilateral lower extremity pain, peripheral neuropathy and fibromyalgia. HISTORY OF PRESENT ILLNESS: As you know, this is a very pleasant 74-year-old female who I am speaking via the telephone today for a telemedicine appointment that she has consented for from 10:30-10:50. She does not have any visual devices. She is legally blind; so she therefore does not have that feature. The patient's facility where she lives has had an outbreak of COVID, so they are not letting anybody leave for doctors' appointments. The patient reports today an increase in pain slightly in her right foot, has been ongoing flare for at least the past week, stating today her pain is a 5/10. The patient also reports some ongoing left ankle pain and left leg pain. She feels that is unchanged from her baseline. Her pain is a sharp tingly sensation. She is wondering if she may have a stress fracture in her right ankle, but she is unable to go to the doctor due to their quarantine in their facility. Therefore she is limiting her ambulation currently and does use a walker at all times when she is up, trying to prevent any pressure on that foot. Overall, she feels that the OxyContin is beneficial in helping alleviate some of her pain and denies issues with constipation if she stays on her scheduled regimen of laxatives. The patient does report she recently aspirated and had pneumonia. She was very sick for several days. She finished a round of antibiotics and nebulizer treatments that she did take at the facility where she lives. ALLERGIES: CYMBALTA, STATINS, CODEINE, ASPIRIN, BACLOFEN, HYDROCHLOROTHIAZIDE, INDOMETHACIN, QUINAPRIL, AMBIEN AND PLAVIX. CURRENT LIST OF MEDICATIONS: OxyContin 10 mg b.i.d., Voltaren gel, Lyrica and see extensive list that has been reconciled. PQRS: 1. She has osteoarthritic changes that is diffuse in multiple joints and denies any rheumatoid arthritis. 2. Height, weight and vital signs are deferred due to a telemedicine appointment. 3. Fall risk. Denies dizziness. Does use a walker for all ambulation, [place] [address] PAIN MANAGEMENT CONSULTATION Name: SABIHA CASTELLANOS Room #: REG [facility]#: [id number] Admission: 02/02/20 Attend Phys: Ginger Mast Discharge: Date of : 47 Report #: [id number] fallen in the last 3 months. 4. The patient is not on any blood thinners, but does take medicine for hypertension. 5. Opioid therapy is greater than 6 weeks, therefore an opioid signed contract is on the chart. Risk assessment is low and functional assessment is 18/70. 6. Recreational drug use, she denies. She is not a smoker and does not drink alcohol. According to the prescription monitoring system, the patient is due to fill her medications this week, filling them in a timely fashion from Dr. Robbins. Her morphine mEq is 30 MME per day. There is a drug screen on the chart that is appropriate. PHYSICAL EXAMINATION: Physical exam is deferred. This is a review of systems. PHYSICAL EXAMINATION: GENERAL: This is alert and orientated 74-year-old who is rating her pain score 5/10 today. She is legally blind. MUSCULOSKELETAL: She uses a walker for all ambulation. She has slight tenderness in her right shoulder she reports as well as ongoing right foot pain that is worse with any weightbearing. ASSESSMENT: 1. Chronic cervical radiculopathy. 2. Cervical spondylosis with radiculopathy. 3. Osteoarthritis of multiple joints. 4. Low back pain. 5. Peripheral neuropathy. 6. Idiopathic scoliosis. 7. Fibromyalgia. 8. Complex regional pain syndrome. 9. Complex medical management under terms of written opioid agreement. We reviewed the fact that opiate medications are being used to provide analgesia adequate to support activities of daily living, not attempting to achieve a specific pain score on the 0-10 Visual Analog Scale. The current opiate medications are providing sufficient analgesia to allow the patient to participate in activities of daily living. The patient is not exhibiting any aberrant behavior suggestive of drug diversion. The patient is not having any adverse reactions to medications. The patient is not suffering from daytime somnolence or mental acuity changes. The patient is managing opiate-induced constipation with appropriate uolj-baj-vmjkxeq agents and dietary considerations. The patient was counseled on concern for caution with operating a motor vehicle while using opiate medications. [facility] [address] [place] [address] PAIN MANAGEMENT CONSULTATION Name: SABIHA CASTELLANOS Room #: REG [facility]#: [id number] Admission: 02/02/20 Attend Phys: Ginger Mast Discharge: Date of : 47 Report #: [id number] PLAN: 1. We discussed treatment options with the patient today. She finds her medications very beneficial despite her elevated pain score recently. We will continue her on OxyContin 10 mg tablets twice a day. Scripts will be sent electronically by Dr. Salvador Robbins for today and 4-week supply to her pharmacy. 2. The patient does continue CBD oil on her right ankle daily. We did discuss her increased pain. If this continues, I encouraged her to see her primary doctor for x-rays once she is able to be out of quarantine from her facility. 3. We did spend a significant amount of time discussing the COVID vaccine. I believe that she would be a candidate, especially living in a long-term care facility where they have had numerous outbreaks. The patient is wanting to have those vaccine once becomes available. 4. We did discuss possible treatment with tamazabab, which is an injection for osteoarthritis. I believe the patient would be a good candidate for this medication when it does become on the market. The patient is seen in collaboration today for this Telemed appointment with Dr. Salvador Robbins. She will return in 2 months for an appointment in the office. At that time, we will recheck a urine drug screen on her. <ELECTRONICALLY SIGNED> By: Ginger Mast 02/03/20 1507 1103 Ginger Mast /nt
== END ==
LOC: TELEPC 06:49 → PAIN 13:35
PROVIDERS: ATTEND Clinical Nurse Specialist Adult Health
DX: G62.9 Polyneuropathy, unspecified (principal); M79.7 Fibromyalgia; M47.22 Other spondylosis with radiculopathy, cervical region; M19.90 Unspecified osteoarthritis, unspecified site; M41.20 Other idiopathic scoliosis, site unspecified; G89.4 Chronic pain syndrome; F11.20 Opioid dependence, uncomplicated; Z88.8 Allergy status to other drugs, medicaments and biological substances; Z79.899 Other long term (current) drug therapy

== ENCOUNTER → 2020-03-16 | Outpatient (CLI) | payer OTHER ==
[~2020-03-16] VITALS: Ht 154.9 cm; Wt 66.2 kg
[~2020-03-16] MED LIST changes: +ACETAMINOP-CODEI5 ML PO; +INDOMETHACIN 5050 M1 PO; +VASCEPA1 GM PO
--- NOTE | ~2020-03-16 | HPC ---
[facility] [place] [address] PAIN MANAGEMENT CONSULTATION Name: SABIHA CASTELLANOS Room #: REG Marques Hanny.#: [id number] Admission: 03/16/20 Attend Phys: Salvador Robbins DO Discharge: Date of : 46 Report #: [id number] THIS REPORT FOR: cc: Rusty Aviles MD, Randy MD Johnson, James E. DO ~ DATE OF SERVICE: 03/16/2020 CHIEF COMPLAINT: Right ankle pain. HISTORY OF PRESENT ILLNESS: As you know, the patient is a very pleasant 74-year-old female who has returned today in followup visit with right ankle pain. She did have concern that the possible reoccurrence of reflex sympathetic temporary may have occurred. She sought evaluation through her primary care physician who widely greg some labs on the patient. It was noted her uric acid levels were elevated and diagnosed with gout. She has been provided a prescription of allopurinol, but unfortunately that a prescription was sent to [facility] and has not been received by the patient. She continues to experience pain for which she places pain score at 4/10. The patient reports that x-rays of the ankle revealed normal findings, which is consistent with an acute gouty change. Typically with recurrence of complex regional pain syndrome, we will see changes within the area consistent with a chronic CRPS such as Charcot joints. She returns to discuss treatment options as she awaits her allopurinol therapy. ALLERGIES: DULOXETINE, STATINS, CODEINE, ASPIRIN, BACLOFEN, HYDROCHLOROTHIAZIDE, INDOMETHACIN, QUINAPRIL, ZOLPIDEM and CLOPIDOGREL. CURRENT MEDICATIONS: See extensive list in chart. SOCIAL HISTORY: The patient denies tobacco, alcohol, IV or illicit drug use. She is retired. She is accompanied by her learning and development assistant present in room today. IMAGING: No new imaging available to us, though patient reports normal x-ray imaging was obtained recently. PQRS: The patient has known arthritic changes of bilateral hips, bilateral feet, lumbar spine, cervical spine and knees, shoulders, elbows and hands. No rheumatoid arthritis. Placing current pain score 4/10. She is a fall risk, but has not had a fall in last 3 months. She utilizes a walker for ambulation. She is not on any blood thinners, but is treated for hypertension. She is on chronic opioids with low opiate addiction potential. Pain impact today is 18 of 70, mild interference of daily activities secondary to pain. PHYSICAL EXAMINATION: VITAL SIGNS: Blood pressure 130/65, pulse 76, respiratory rate 16 and [facility] [address] [place] [address] PAIN MANAGEMENT CONSULTATION Name: SABIHA CASTELLANOS Room #: REG [facility]#: [id number] Admission: 03/16/20 Attend Phys: Salvador Robbins DO Discharge: Date of : 46 Report #: [id number] unlabored. The patient is 98% on room air. Height 5 feet 1 inch tall, weight 146 pounds, BMI calculated 27.6. GENERAL: Well-developed, well-nourished, well-hydrated 74-year-old female appearing stated age, pain is rated today 4/10. HEENT: Normocephalic. The patient has vision changes that were unchanged. Hearing is normal. Extraocular muscles are intact. The patient is wearing a mask in compliance with COVID-19 regulations. EXTREMITIES: Show no clubbing, no cyanosis. MUSCULOSKELETAL: There is noted swelling on the right ankle area. There are no skin color changes. There are no concerning findings of temperature changes. No hair and nail changes consistent with CRPS. It does appear acute gouty arthritic changes occurring as there is some warmth and tactile tenderness to the area. ASSESSMENT: 1. Acute gout. 2. History of reflex sympathetic dystrophy. PLAN: 1. The patient returns today in followup visit with what appears to be an acute gouty change to the right ankle. The patient was concerned that she may have had a reoccurrence of her complex regional pain syndrome. Given the findings on the physical exam and history she provides, it would appear that this is more of a gouty change then it would be a recurrence of complex regional pain syndrome. This is also corroborated by the elevated uric acid levels found on recent laboratory findings requested by Dr. Aviles. The patient was given allopurinol to begin, but unfortunately, her medication has not been available as it was inadvertently sent to [facility]. She should have that medication either today or tomorrow based on one week timeframe for prescriptions on a typical basis. She is requesting adjustments in therapy to address current pain. 2. The patient and I did discuss the possibility of adding indomethacin to her medication list. The patient does report allergies to indomethacin and Plavix. This is from an incident occurred 8 years ago where the patient was on indomethacin consistently and was taking Plavix concurrently and had a GI bleed. This was resolved 8 years ago. She has had no recurrent side effects. As you are aware, the pain medication of choice for acute gouty flare is indomethacin. We did discuss the possibility of utilizing other nonsteroidal anti-inflammatories, but did advise the patient the efficacy is not noted in those medications as it has been shown with indomethacin. She is agreeable to trial the indomethacin for a short period of time, which should be the dosing parameters for gout that is acute in nature. The patient was provided a prescription of indomethacin 50 mg dose. She is to take no more than 3 tabs a day. I have only given her 21 tablets. This is for the next week to 2 weeks as she awaits the efficacy of the allopurinol reducing the deposition of uric acid crystals. 3. We reviewed the fact that opiate medications are being used to provide [facility] [address] [place] [address] PAIN MANAGEMENT CONSULTATION Name: JASMINSABIHA Room #: REG CLMarques Hein#: [id number] Admission: 03/16/20 Attend Phys: Salvador Robbins DO Discharge: Date of : 46 Report #: [id number] analgesia adequate to support activities of daily living, not attempting to achieve a specific pain score on the 0-10 Visual Analog Scale. The current opiate medications are providing sufficient analgesia to allow the patient to participate in activities of daily living. The patient is not exhibiting any aberrant behavior suggestive of drug diversion. The patient is not having any adverse reactions to medications. The patient is not suffering from daytime somnolence or mental acuity changes. The patient is managing opiate-induced constipation with appropriate nski-vsc-svendaq agents and dietary considerations. The patient was counseled on concern for caution with operating a motor vehicle while using opiate medications. A physical exam was performed and the patient's functional status was evaluated. All patients with back pain were advised against the bed rest greater than 4 days and were advised to return to normal activities. Pain score assessment was noted and the treatment plan was reviewed with the patient. All current medications, both prescribed and OTC were reviewed and reconciled on the electronic medical record. Tobacco screening was accomplished and smoking cessation was advised when indicated. BMI was noted and diet/exercise modification was recommended for all patients following outside normal parameters. I reviewed with the patient today their responsibilities to safeguard prescription medications, reviewed their responsibility to utilize medications only as prescribed by the physician. They are to seek and receive pain medications only from 1 physician group ( [facility]). They are to use 1 pharmacy and keep the clinic informed if they change pharmacies. Their responsibilities include making followup visits in a timely fashion and to avoid abrupt discontinuation of medication usage. Their responsibilities further include bringing their medications (bottles from the pharmacy with residual pills) to the visit for possible confirmation of pill counts and the patient understands it is their responsibility to submit to random drug screens to ensure both that the medications prescribed are present, and that no other controlled substances are present. All prescriptions provided today were generated electronically. 4. We have provided the patient a prescription of her typical OxyContin dose 10 mg dose 1 tab p.o. b.i.d. I have given the patient #60 tablets to release now and 4 weeks from today, 2 months' worth of medication. 5. We will continue the patient on her Lyrica 25 mg dose taken as directed. I have given her #180 tablets with no refills. This is a 3-month prescription. 6. We plan to see the patient back in followup visit on an as needed basis. We are hopeful that the treatment for gout will be rapid and her symptoms will improve. Again, I advised the patient to be careful with the indomethacin as she did have GI bleed 8 years ago, but this was on a long-term indomethacin dosing basis with concomitant use of Plavix, an absolute contraindication with [address] [address] PAIN MANAGEMENT CONSULTATION Name: SABIHA CASTELLANOS Room #: REG Marques Hein#: [id number] Admission: 03/16/20 Attend Phys: Salvador Robbins DO Discharge: Date of : 46 Report #: [id number] nonsteroidal anti-inflammatories. She will contact our clinic with any questions or concerns. By: [id number] Salvador Robbins DO /nt
[2020-03-16 13:43] VITALS: BP 130/65
--- NOTE | 2020-03-16 14:04 | NUR ---
Pain Clinic Assessment: 1. History of Osteoarthritis: B/L HIPS, FEET, SPINE KNEES, SHOULDERS, ELBOW, HANDS History of Rheumatoid Arthritis: DENIES 2. Height: 5 ft. 1 in. 154.9 cm. Weight: 146.0 lb. oz. 66.225 kg. Patient's BMI: 27.6 3. Vital Signs: BP: 130/65 Pulse: 76 Resp: 16 Temp: 02 Sat: 98 ECG Mon: 4. Pain Intensity: 4 5. Fall Risk: Dizziness: Y Needs help standing or walking: Y Fallen in the last 3 months: N Fall risk comments: WALKER 6. Patient on Blood Thinner: None 7. History of Hypertension: Y 8. Opioid Therapy greater than 6 weeks: Y Opiate Contract Signed: 11/03/15 9. Risk Assessment Tool Provided: LOW RISK-0 10. Functional Assessment Tool: 11. Recreational Drug Use: Never Drug Type: Tobacco Use: Never Smoker Tobacco Type: Amount or Packs/day: How Many Years: Alcohol Use: No Frequency: Quant:
== END ==
LOC: PAIN 06:54
PROVIDERS: ATTEND Anesthesiology Pain Medicine
DX: M10.9 Gout, unspecified (principal); M25.571 Pain in right ankle and joints of right foot; Z79.899 Other long term (current) drug therapy; Z88.5 Allergy status to narcotic agent; Z88.6 Allergy status to analgesic agent; Z88.1 Allergy status to other antibiotic agents; Z88.8 Allergy status to other drugs, medicaments and biological substances

== ENCOUNTER → 2020-05-24 | Outpatient (CLI) | payer OTHER ==
[~2020-05-24] VITALS: Ht 154.9 cm; Wt 67.6 kg
[2020-05-24 13:07] VITALS: BP 141/74
--- NOTE | 2020-05-24 13:13 | NUR ---
Pain Clinic Assessment: 1. History of Osteoarthritis: B/L HIPS, FEET, SPINE KNEES, SHOULDERS, ELBOW, HANDS History of Rheumatoid Arthritis: DENIES 2. Height: 5 ft. 1 in. 154.9 cm. Weight: 149.0 lb. oz. 67.586 kg. Patient's BMI: 28.2 3. Vital Signs: BP: 141/74 Pulse: 75 Resp: 14 Temp: 02 Sat: 99 ECG Mon: 4. Pain Intensity: 3 5. Fall Risk: Dizziness: N Needs help standing or walking: Y Fallen in the last 3 months: N Fall risk comments: PT IS BLIND USES WALKER 6. Patient on Blood Thinner: None 7. History of Hypertension: Y 8. Opioid Therapy greater than 6 weeks: Y Opiate Contract Signed: 11/03/15 9. Risk Assessment Tool Provided: LOW RISK-0 10. Functional Assessment Tool: 11. Recreational Drug Use: Never Drug Type: Tobacco Use: Never Smoker Tobacco Type: Amount or Packs/day: How Many Years: Alcohol Use: No Frequency: Quant:
--- NOTE | 2020-05-25 13:29 | HPC ---
[facility] [address] [place] [address] PAIN MANAGEMENT CONSULTATION Name: SABIHA CASTELLANOS [id number] Admission: 05/24/20 Attend Phys: Ginger Mast Discharge: Date of : 46 Report #: [id number] THIS REPORT FOR: cc: Rusty Aviles MD, Randy MD Hocker,Ginger VELASQUEZ ~ DATE OF SERVICE: 05/24/2020 CHIEF COMPLAINT: Bilateral lower extremity pain, peripheral neuropathy, fibromyalgia and complex regional pain syndrome. HISTORY OF PRESENT ILLNESS: As you know, this is a very pleasant 74-year-old female who returns to the pain clinic today for renewal of her medications. We have treated the patient for complex regional pain syndrome in the past with injections and most recently, she has been stable on her OxyContin. She did have a flare in February and was worried that her CRP has had returned. Fortunately, she was having a flare with gout. The patient reports that she did take her indomethacin for a week and is now off her allopurinol and will only take it as needed. She reports that her pain is back to her normal 3/10, located in both her legs and feet. She is having some arthritic changes in her left shoulder today. Her pain is worse with movement. She does utilize a walker at all times. She believes sitting and medications are the most beneficial for her. The patient reports today that she has not been utilizing her CBD oil as much as she had been in the past. She is wondering if she may have another refill of her Voltaren gel. She has been using this on her arthritic joints of knees and shoulders and does find it helpful. She will continue to rotate with her CBD oil as well. ALLERGIES: CYMBALTA, STATINS, CODEINE, ASPIRIN, BACLOFEN, INDOMETHACIN, QUINAPRIL, AMBIEN, PLAVIX. CURRENT MEDICATIONS: OxyContin 10 mg b.i.d., Lyrica, codeine, Vascepa, Azo, Tariq, CBD oil, Toprol, hydralazine, metformin, Toviaz, Estrace, Voltaren gel, Reglan, ProAir, simethicone, amlodipine, prednisone, Myrbetriq, lisinopril, multivitamin, iron, Flonase, vitamin B12, vitamin D3, Protonix, Lamictal and Zetia. PQRS: 1. She has a history of arthritic changes that is diffuse in her hips, feet, spine, knees, shoulders, elbows and hands. Denies any rheumatoid arthritis. 2. Height is 5 feet 1 inch, weight is 149, BMI is 28. 3. Vital signs 141/74, pulse is 75, respirations 14, oxygen sat is 99%. 4. Pain score is 3/10. 5. Denies dizziness. Uses a walker for ambulation and has not fallen in the [address] [address] PAIN MANAGEMENT CONSULTATION Name: SABIHA CASTELLANOS Room #: REG FRANKIE Hein#: [id number] Admission: 05/24/20 Attend Phys: Ginger Mast Discharge: Date of : 46 Report #: [id number] last 3 months. 6. The patient is not on any blood thinners, but does take medicine for hypertension. 7. Opioid therapy is greater than 6 weeks; therefore, an opioid signed contract is on the chart. Risk assessment is low. Functional assessment is 18/70. 8. Recreational drug use, she denies. She is not a smoker and does not drink alcohol. According to the prescription monitoring system, the patient is due to fill her medications early next week, filling them in a timely fashion. Her morphine milliequivalent according to the CDC guidelines is 30 MMEs. PHYSICAL EXAMINATION: GENERAL: This is a well-developed, well-nourished, well-hydrated 74-year-old female who appears her stated age, rating her pain score today at 3/10. HEENT: Normocephalic. Extraocular muscles are intact. She has vision changes. She is legally blind. Hearing is adequate. She is wearing a mask. EXTREMITIES: No clubbing, no cyanosis. MUSCULOSKELETAL: Slight edema in her lower extremities bilaterally. No alopecia noted. She uses a walker for ambulation. She has tenderness in her right shoulder with good range of motion. ASSESSMENT: 1. History of reflex sympathetic dystrophy. 2. Chronic cervical radiculopathy with spondylosis. 3. Osteoarthritis of multiple joints. 4. Low back pain. 5. Peripheral neuropathy. 6. Idiopathic scoliosis. 7. Fibromyalgia. 8. Complex medical management utilizing scheduled opioid medications. We reviewed the fact that opiate medications are being used to provide analgesia adequate to support activities of daily living, not attempting to achieve a specific pain score on the 0-10 Visual Analog Scale. The current opiate medications are providing sufficient analgesia to allow the patient to participate in activities of daily living. The patient is not exhibiting any aberrant behavior suggestive of drug diversion. The patient is not having any adverse reactions to medications. The patient is not suffering from daytime somnolence or mental acuity changes. The patient is managing opiate-induced constipation with appropriate kvyn-krw-pscjich agents and dietary considerations. The patient was counseled on concern for caution with operating a motor vehicle while using opiate medications. PLAN: 1. We discussed treatment options with the patient today. The patient finds [facility] [address] [place] [address] PAIN MANAGEMENT CONSULTATION Name: SABIHA CASTELLANOS Room #: REG [facility]#: [id number] Admission: 05/24/20 Attend Phys: Ginger EVA Mast Discharge: Date of : 47 Report #: [id number] her OxyContin beneficial and would like to continue that medication. She takes very low dose of 10 mg twice a day. She was provided with written copies of this medication today for today and 4-week supply from Dr. Robbins since the electronic system was down. 2. We did discuss again the possible injection medication tanezumab. Unfortunately, it is still not in the market. The patient is interested in rotating to that medication when available for her pain in place of Oxycontin. 3. We did discuss her complex regional pain syndrome and if she does have flares in the future, she is able to have lumbar sympathetic blocks by Dr. Salvador Robbins. She has not had any injections since 2012. We explained first we will try to have her increase her Lyrica to 2 tablets at night and see if that is beneficial to helping reduce her flare. If ineffective then we would gladly have Dr. Robbins see her for injections if need be. 4. The patient has had both her COVID vaccines. She is thankful for that and being able to be out of her assisted living facility. 5. I did send Voltaren gel electronically. The patient has been utilizing that alternating with CBD oil. She has found both of them beneficial and script sent electronically. Time spent with the patient in consultation, reviewing recent studies and clinical notes and reports, physical examination in correlation of findings and medical documentation to determine possible treatments, 20 minutes. Time spent in preparation for appointment, reviewing prescription monitoring system reports, reviewing previous records and proposed treatment options, reviewing current medications, 5 minutes. Time spent in preparation, preparing and obtaining prescriptions from collaborating physician, Dr. Salvador Robbins, and documentation of that visit and plan of treatment, 9 minutes. Total time 34 minutes. <ELECTRONICALLY SIGNED> By: Ginger Mast 05/25/20 1329 1401 Ginger Mast /nt
== END ==
LOC: PAIN 06:55
PROVIDERS: ATTEND Clinical Nurse Specialist Adult Health
DX: G62.9 Polyneuropathy, unspecified (principal); G89.4 Chronic pain syndrome; M79.10 Myalgia, unspecified site; F11.20 Opioid dependence, uncomplicated; M41.20 Other idiopathic scoliosis, site unspecified; M19.90 Unspecified osteoarthritis, unspecified site; M47.12 Other spondylosis with myelopathy, cervical region; G90.50 Complex regional pain syndrome I, unspecified; Z88.8 Allergy status to other drugs, medicaments and biological substances; Z79.899 Other long term (current) drug therapy

== ENCOUNTER → 2020-07-19 | Outpatient (CLI) | payer OTHER ==
[~2020-07-19] VITALS: Ht 154.9 cm; Wt 68.9 kg
[2020-07-19 13:15] VITALS: BP 121/59
--- NOTE | 2020-07-19 13:39 | NUR ---
Pain Clinic Assessment: 1. History of Osteoarthritis: B/L HIPS, FEET, SPINE KNEES, SHOULDERS, ELBOW, HANDS History of Rheumatoid Arthritis: DENIES 2. Height: 5 ft. 1 in. 154.9 cm. Weight: 151.8 lb. oz. 68.856 kg. Patient's BMI: 28.7 3. Vital Signs: BP: 121/59 Pulse: 78 Resp: 16 Temp: 02 Sat: 96 ECG Mon: 4. Pain Intensity: 6 5. Fall Risk: Dizziness: Y Needs help standing or walking: Y Fallen in the last 3 months: N Fall risk comments: PT IS BLIND USES WALKER 6. Patient on Blood Thinner: None 7. History of Hypertension: Y 8. Opioid Therapy greater than 6 weeks: Y Opiate Contract Signed: 11/03/15 9. Risk Assessment Tool Provided: LOW RISK-0 10. Functional Assessment Tool: 39 11. Recreational Drug Use: Never Drug Type: Tobacco Use: Never Smoker Tobacco Type: Amount or Packs/day: How Many Years: Alcohol Use: No Frequency: Quant:
--- NOTE | 2020-07-20 09:16 | HPC ---
[facility] [place] [address] [place] [address] PAIN MANAGEMENT CONSULTATION Name: SABIHA CASTELLANOS Room #: REG [facility].#: [id number] Admission: 07/19/20 Attend Phys: Ginger Mast Discharge: Date of : 47 Report #: [id number] THIS REPORT FOR: cc: Rusty Aviles MD,Rusty Mast,Ginger VELASQUEZ ~ DOC #: [id number] cc: Rusty Aviles MD, Salvador Robbins, DO Ginger Mast, ROSANNE DATE OF SERVICE: 07/19/2020 CHIEF COMPLAINT: Bilateral lower extremity pain and paresthesias, peripheral neuropathy and complex regional pain syndrome. HISTORY OF PRESENT ILLNESS: As you know, this is a pleasant 74-year-old female who returns to the pain clinic today for renewal of her medications. Today, the patient is reporting a pain score of 6/10, most significantly in her legs and feet bilaterally. Her pain is worse on the left than the right. She does have some edema located in her left lower extremity today. The patient reports a pain score of 6/10 and states her pain is increased with movement. She does utilize a walker at all times and finds sitting as well as her medications beneficial. The patient reports that she has had several procedures done since we have last seen her to rule out deep vein thrombosis in her legs with multiple sonograms. They were negative for any blood clots, but she continues to have some swelling in her left leg. The patient states that is bothersome, but otherwise she feels overall that she is doing quite well. She also reports she had a skin issue on her right lower leg that has resolved. Today, she would like medication renewal. ALLERGIES: CYMBALTA, STATINS, CODEINE, ASPIRIN, BACLOFEN, HYDROCHLOROTHIAZIDE, ____, QUINAPRIL, AMBIEN AND PLAVIX. MEDICATIONS: Voltaren gel, OxyContin 10 mg b.i.d., Lyrica, Vascepa, Azo, Tariq, CBD oil, metoprolol, hydralazine, metformin, Toviaz, Estrace, Reglan, ProAir, Gas Relief, amlodipine, prednisone, lisinopril, Myrbetriq, multivitamin, iron, Flonase, vitamin B12, vitamin D3, Protonix, Lamictal and Zetia. PQRS: 1. She has significant osteoarthritis that is diffuse in her hips, feet spine, knees, shoulders, elbows and hands. Denies any rheumatoid arthritis. 2. Height is 5 feet 1, weight is 151, BMI is 28. 3. Vital signs: 121/59, pulse is 78, respirations 16, oxygen sat is 98%. 4. Fall risk. Complains of slight dizziness. Does utilize a walker at all times due to her difficulty with vision and being blind [place] [address] PAIN MANAGEMENT CONSULTATION Name: SABIHA CASTELLANOS Room #: REG [facility] Hein#: [id number] Admission: 07/19/20 Attend Phys: Ginger Mast Discharge: Date of : 47 Report #: [id number] last 3 months. 5. The patient is not on any blood thinners, but does have medicine for hypertension. 6. Opioid therapy is greater than 6 weeks; therefore, an opioid signed contract is on the chart. RISK ASSESSMENT: Low. FUNCTIONAL ASSESSMENT: 39/70. RECREATIONAL DRUG USE: She denies. She is not a smoker and does not drink alcohol. According to the prescription monitoring system, the patient is filling appropriately in a timely fashion. She is due to fill these medications next week. We will collect a random drug screen on this patient today. Her morphine mEq according to the CDC guidelines is 30 MME. PHYSICAL EXAMINATION: GENERAL: This is alert and orientated, well-developed, well-nourished, obese 74-year-old female who appears her stated age, rating her current pain score today at 6/10. She is a good historian. HEENT: Normocephalic, atraumatic. Extraocular eye muscles are intact. She has vision changes. She is legally blind. She is wearing a mask. EXTREMITIES: No clubbing, no cyanosis, 1+ edema in her lower left extremity. MUSCULOSKELETAL: There is swelling in her lower extremity. There are no skin changes. No nail changes consistent with CRPS. She has numerous tender joint issues from her osteoarthritis, utilizing a walker with ambulation. Significant numbness, tingling in her lower extremities and also tenderness in her cervical spine. ASSESSMENT: 1. History of reflex sympathetic dystrophy. 2. Chronic cervical radiculopathy with spondylosis. 3. Osteoarthritis affecting multiple joints. 4. Peripheral neuropathy. 5. Low back pain. 6. Idiopathic scoliosis. 7. Fibromyalgia. 8. Complex medical management utilizing scheduled opioid medications. PLAN: 1. We discussed treatment options with the patient today. The patient finds her medications beneficial in helping decrease her pain. She would like to continue on her OxyContin 10 mg b.i.d. Scripts will be sent electronically by Dr. Robbins to fill on 07/30/2020 and again on 08/26/2020, which is slightly [address] [address] PAIN MANAGEMENT CONSULTATION Name: SABIHA CASTELLANOS Room #: REG [facility]#: [id number] Admission: 07/19/20 Attend Phys: Ginger Mast Discharge: Date of : 47 Report #: [id number] early due to the holiday. 2. We will collect a random drug screen on this patient today. The patient states she has problems with incontinence, is considering Botox injections in her bladder. I strongly encouraged her to discuss this further with her urologist. 3. The patient does continue her Lyrica for her neuropathy and Voltaren gel for her osteoarthritis and encouraged her to continue these, but no meds needed today. Time spent with the patient in consultation, reviewing pertinent recent studies and clinical notes, physician reports and physical examination and correlation of findings and medical documentation to determine possible treatment options, 15 minutes. Time spent in preparation for appointment, reviewing prescription monitoring system, reviewing previous records and proposed treatment options, reviewing current medications, 6 minutes. Time spent in preparing and sending electronic prescriptions with collaborating physician, Dr. Salvador Robbins, documentation of visit and plan of treatment, 4 minutes. TOTAL TIME SPENT: 25 minutes. ROSANNE Corona/FLORENCIO/TAMMY <ELECTRONICALLY SIGNED> By: Ginger Mast 07/20/20 0916 [id number] [id number] Ginger Mast /akila
== END ==
LOC: PAIN 09:36
PROVIDERS: ATTEND Clinical Nurse Specialist Adult Health
DX: M47.22 Other spondylosis with radiculopathy, cervical region (principal); G62.9 Polyneuropathy, unspecified; Z79.891 Long term (current) use of opiate analgesic; Z79.899 Other long term (current) drug therapy

== ENCOUNTER → 2020-09-21 | Outpatient (CLI) | payer OTHER ==
[~2020-09-21] VITALS: Ht 154.9 cm; Wt 68.0 kg
[~2020-09-21] MED LIST changes: +DICLOFENAC SOD100 G1 TOP; +PROBENECID-COL1 EACH PO; +vitamin D PO
[2020-09-21 10:07] VITALS: BP 136/71
--- NOTE | 2020-09-21 10:17 | NUR ---
Pain Clinic Assessment: 1. History of Osteoarthritis: B/L HIPS, FEET, SPINE KNEES, SHOULDERS, ELBOW, HANDS History of Rheumatoid Arthritis: DENIES 2. Height: 5 ft. 1 in. 154.9 cm. Weight: 150.0 lb. oz. 68.040 kg. Patient's BMI: 28.4 3. Vital Signs: BP: 136/71 Pulse: 74 Resp: 16 Temp: 02 Sat: 97 ECG Mon: 4. Pain Intensity: 6 5. Fall Risk: Dizziness: Y Needs help standing or walking: Y Fallen in the last 3 months: N Fall risk comments: PT IS BLIND USES WALKER 6. Patient on Blood Thinner: None 7. History of Hypertension: Y 8. Opioid Therapy greater than 6 weeks: Y Opiate Contract Signed: 11/03/15 9. Risk Assessment Tool Provided: LOW RISK-0 10. Functional Assessment Tool: 39 11. Recreational Drug Use: Never Drug Type: Tobacco Use: Never Smoker Tobacco Type: Amount or Packs/day: How Many Years: Alcohol Use: No Frequency: Quant:
--- NOTE | 2020-09-22 08:21 | HPC ---
[facility] [place] [address] PAIN MANAGEMENT CONSULTATION Name: SABIHA CASTELLANOS Room #: REG [facility].#: [id number] Admission: 09/21/20 Attend Phys: Ginger Mast Discharge: Date of : 47 Report #: [id number] THIS REPORT FOR: cc: Rusty Aviles MD,Rusty Mast,Ginger VELASQUEZ ~ cc: Rusty Aviles MD, Salvador Robbins DO DATE OF SERVICE: 09/21/2020 CHIEF COMPLAINT: Bilateral lower extremity pain and paresthesias, peripheral neuropathy, complex regional pain syndrome. HISTORY OF PRESENT ILLNESS: This is a pleasant 75-year-old female who returns today with a caregiver to renew her medications. She reports today she is having another breakthrough of gout, so her pain is elevated at 6/10. She reports thankful that it was not a flare of her complex regional pain syndrome, which we treat her for the pain in her legs and feet and unfortunately she had gout again this year. She reports being on colchicine on a daily basis and may consider being on this as a low dose preventative treatment since she has had multiple episodes this year. Overall, she believes the OxyContin does manage her complex regional pain that she experiences an increase in pain with movement. She denies any constipation issues, does take some xdoo-zih-tmmucxy medications. Today, she would like a renewal of her Voltaren gel and OxyContin. She does take Lyrica every night and is not needing refills of that medicine currently. ALLERGIES: CYMBALTA, STATINS, CODEINE, ASPIRIN, BACLOFEN, HYDROCHLOROTHIAZIDE, INDOMETHACIN, QUINAPRIL, AMBIEN, AND PLAVIX. CURRENT MEDICATIONS: Vitamin D, colchicine, OxyContin 10 mg b.i.d., Voltaren gel, Lyrica, Vascepa, Azo, prednisone, metoprolol, CBD oil, hydralazine, metformin, Toviaz, Estrace, Reglan, ProAir, amlodipine, Myrbetriq, lisinopril, multivitamin, iron, Flonase, vitamin B12, vitamin D3, Protonix, Lamictal, and Zetia. PQRS: 1. She has osteoarthritic changes in multiple joints of spine, hips, shoulders, and hands. Denies any rheumatoid arthritis. Height is 5 feet 1 inch, weight is 150, BMI is 28. 2. Vital signs: Blood pressure 136/71, pulse is 74, respirations 16, oxygen sat is 97%, pain score 6/10. Fall risk: Complains of slight dizziness. Does use a walker at all times and is legally blind. 3. The patient is not on any blood thinners, but does take medicine for hypertension. Her opioid therapy is greater than 6 weeks; therefore, an opioid signed contract is on the chart. 4. Risk assessment is low. Functional assessment is 39/70. [address] [address] PAIN MANAGEMENT CONSULTATION Name: JASMINSABIHA Room #: REG [facility] Hein#: [id number] Admission: 09/21/20 Attend Phys: Ginger Mast Discharge: Date of : 47 Report #: [id number] 5. Recreational drug use, she denies. She is not a smoker and does not take alcohol. PHYSICAL EXAMINATION: GENERAL: This is an alert and orientated, well-developed, well-nourished 75-year-old female who appears her stated age, rating her pain score today at 6/10. HEENT: Normocephalic, atraumatic. Extraocular eye muscles are intact. She is legally blind, wearing a mask. EXTREMITIES: No clubbing, no cyanosis. She does have 1+ edema in her lower right foot. MUSCULOSKELETAL: She has a walker that she utilizes at all times. She has tenderness in her right lower foot. No color changes noted. Significant tenderness in her cervical spine as well as tenderness in multiple joints from her arthritic issues. No nail changes consistent with CRPS. We reviewed the fact that opiate medications are being used to provide analgesia adequate to support activities of daily living, not attempting to achieve a specific pain score on the 0-10 Visual Analog Scale. The current opiate medications are providing sufficient analgesia to allow the patient to participate in activities of daily living. The patient is not exhibiting any aberrant behavior suggestive of drug diversion. The patient is not having any adverse reactions to medications. The patient is not suffering from daytime somnolence or mental acuity changes. The patient is managing opiate-induced constipation with appropriate txlq-ufq-tlizxko agents and dietary considerations. The patient was counseled on concern for caution with operating a motor vehicle while using opiate medications. A physical exam was performed and the patient's functional status was evaluated. All patients with back pain were advised against the bed rest greater than 4 days and were advised to return to normal activities. Pain score assessment was noted and the treatment plan was reviewed with the patient. All current medications, both prescribed and OTC were reviewed and reconciled on the electronic medical record. Tobacco screening was accomplished and smoking cessation was advised when indicated. BMI was noted and diet/exercise modification was recommended for all patients following outside normal parameters. I reviewed with the patient today their responsibilities to safeguard prescription medications, reviewed their responsibility to utilize medications only as prescribed by the physician. They are to seek and receive pain medications only from 1 physician group ( [facility]). They are to use 1 pharmacy and keep the clinic informed if they change pharmacies. Their responsibilities include making followup visits in a timely fashion and to avoid abrupt discontinuation of medication usage. Their responsibilities further include bringing their medications (bottles from the pharmacy with residual [facility] [address] [place] [address] PAIN MANAGEMENT CONSULTATION Name: JASMINSAIBHA Room #: REG [facility] Hein#: [id number] Admission: 09/21/20 Attend Phys: Ginger Mast Discharge: Date of : 47 Report #: [id number] pills) to the visit for possible confirmation of pill counts and the patient understands it is their responsibility to submit to random drug screens to ensure both that the medications prescribed are present, and that no other controlled substances are present. All prescriptions provided today were generated electronically. According to the prescription monitoring system, the patient is filling her meds appropriately in a timely fashion. She is due to fill her medications early next week. Her morphine milliequivalent is 30 MMEs. ASSESSMENT: 1. History of reflex sympathetic dystrophy. 2. Chronic cervical radiculopathy with spondylosis. 3. Osteoarthritis affecting multiple joints. 4. Peripheral neuropathy. 5. Low back pain. 6. Idiopathic scoliosis. 7. Fibromyalgia. 8. Gout. 9. Complex medical management utilizing scheduled opioid medications. PLAN: 1. We discussed treatment options with the patient today. Unfortunately, she has had another flare of gout and is on colchicine. She is thankful that it is treated and it was not her complex regional pain syndrome returning in her lower extremity. We did discuss briefly being on a low dose anti-gout medication and encouraged her to discuss that with her primary care doctor. 2. We will continue her on her OxyContin 10 mg tablets twice a day. She does find this beneficial in helping relieve a significant portion of her pain and allowing her to be as active as possible. Scripts will be sent electronically by Dr. Robbins to her pharmacy for 3 months. 3. I will continue her on her Voltaren gel sending this electronically to her mail of pharmacy. The patient uses it on various joints due to arthritic issues. 4. She is not needing a refill of her Lyrica today. She does take 1 tablet at bedtime, but has multiple side effects if takes it during the day. She does find, however, that it is beneficial in reducing her neuropathy. 5. We will see her back in 2 months or as needed for other issues. Time spent with the patient in consultation, reviewing clinical notes and physician reports and physical examination and correlation of findings and medical documentation to determine possible treatment options, 16 minutes. Time spent in preparation for appointment, reviewing prescription monitoring system reports, reviewing previous records and proposed treatment options and reviewing current medications, 5 minutes. Time spent preparing and sending electronic [facility] [address] [place] [address] PAIN MANAGEMENT CONSULTATION Name: SABIHA CASTELLANOS Room #: REG [facility] Melvina#: [id number] Admission: 09/21/20 Attend Phys: Ginger Mast Discharge: Date of : 47 Report #: [id number] prescriptions with collaborating physician, Dr. Salvador Robbins, documentation of visit and plan of treatment, 5 minutes. Total time spent 26 minutes. <ELECTRONICALLY SIGNED> By: Ginger Mast 09/22/20 0821 1028 2041 Ginger Mast /nt
== END ==
LOC: PAIN 06:58
PROVIDERS: ATTEND Clinical Nurse Specialist Adult Health
DX: M47.22 Other spondylosis with radiculopathy, cervical region (principal); M19.90 Unspecified osteoarthritis, unspecified site; M41.20 Other idiopathic scoliosis, site unspecified; G90.50 Complex regional pain syndrome I, unspecified; M79.7 Fibromyalgia; M10.9 Gout, unspecified; Z68.28 Body mass index [BMI] 28.0-28.9, adult; Z88.8 Allergy status to other drugs, medicaments and biological substances; Z79.891 Long term (current) use of opiate analgesic; Z79.899 Other long term (current) drug therapy

== ENCOUNTER → 2020-11-22 | Outpatient (CLI) | payer OTHER ==
[~2020-11-22] VITALS: Ht 154.9 cm; Wt 69.0 kg
[2020-11-22 12:58] VITALS: BP 130/84
--- NOTE | 2020-11-22 13:13 | NUR ---
Pain Clinic Assessment: 1. History of Osteoarthritis: B/L HIPS, FEET, SPINE KNEES, SHOULDERS, ELBOW, HANDS History of Rheumatoid Arthritis: DENIES 2. Height: 5 ft. 1 in. 154.9 cm. Weight: 152.2 lb. oz. 69.037 kg. Patient's BMI: 28.8 3. Vital Signs: BP: 130/84 Pulse: 82 Resp: 20 Temp: 02 Sat: 97 ECG Mon: 4. Pain Intensity: 5 NOW 3 WITH MEDS 5. Fall Risk: Dizziness: Y Needs help standing or walking: N Fallen in the last 3 months: N Fall risk comments: PT IS BLIND USES WALKER 6. Patient on Blood Thinner: None 7. History of Hypertension: Y 8. Opioid Therapy greater than 6 weeks: Y Opiate Contract Signed: 11/03/15 9. Risk Assessment Tool Provided: LOW RISK-0 10. Functional Assessment Tool: 39 11. Recreational Drug Use: Never Drug Type: Tobacco Use: Never Smoker Tobacco Type: Amount or Packs/day: How Many Years: Alcohol Use: No Frequency: Quant:
--- NOTE | 2020-11-24 08:07 | HPC ---
[facility] [place] [address] PAIN MANAGEMENT CONSULTATION Name: SABIHA CASTELLANOS [id number] Admission: 11/22/20 Attend Phys: Ginger Mast Discharge: Date of : 47 Report #: [id number] THIS REPORT FOR: cc: Rusty Aviles MD, Randy MD Hocker,Ginger VELASQUEZ ~ cc: Salvador Robbins DO DATE OF SERVICE: 11/22/2020 CHIEF COMPLAINT: Bilateral lower extremity pain and paresthesias, peripheral neuropathy, and complex regional pain syndrome. HISTORY OF PRESENT ILLNESS: This is a pleasant 75-year-old female who returns to the clinic today with a caregiver due to her eyesight. She is legally blind. Today, she is reporting a pain score slightly higher than her normal at 5. She reports that she has had a rough couple of weeks due to some cardiac issues. They have been adjusting her medicines. Therefore, that has caused some tachycardia and palpitations. Related to the patient's pain, she states that her pain continues in her legs and feet as the neuropathy continues as well as her RSD. She feels the medication are adequately controlling her pain with the OxyContin twice a day. She also finds the Voltaren gel beneficial in helping relieve some of the burning sensation that she experiences in her arthritic issues in her legs. Today, she is requesting refills of her OxyContin sent to her local pharmacy as well as the Voltaren gel sent to her [facility]. She continues on Lyrica, but does not need prescriptions of that medication. ALLERGIES: CYMBALTA, STATINS, CODEINE, ASPIRIN, BACLOFEN, HYDROCHLOROTHIAZIDE, INDOMETHACIN, QUINAPRIL, PLAVIX, AND AMBIEN. CURRENT MEDICATIONS: Metoprolol 12.5 mg b.i.d., diclofenac gel, OxyContin 10 mg b.i.d., colchicine, Lyrica, Tylenol with Codeine, Vascepa, Azo, prednisone, CBD oil, hydralazine, metformin, Toviaz, Estrace, Reglan, albuterol, simethicone, amlodipine, Myrbetriq, lisinopril, multivitamin, iron, Flonase, vitamin B12, vitamin D3, Protonix, Lamictal, and Zetia. PQRS: 1. She has osteoarthritic issues that is diffuse in her hips, feet, spine, shoulders and ankles. Denies any rheumatoid arthritis. 2. Height is 5 feet 1 inch, weight is 152. BMI is 28. 3. Vital signs: Blood pressure 130/84, pulse is 82, respirations 20, oxygen sat is 97%. 4. Pain score is rated 5 depending on the time of day. 5. Complains of slight dizziness. She does use a walker for ambulation [place] [address] PAIN MANAGEMENT CONSULTATION Name: SABIHA CASTELLANOS Room #: REG [facility] Hein#: [id number] Admission: 11/22/20 Attend Phys: Ginger Mast Discharge: Date of : 47 Report #: [id number] 6. She is not on any blood thinners, but does continue her medicines for hypertension. 7. Opioid therapy is greater than 6 weeks; therefore, an opioid signed contract is on the chart. 8. Risk assessment is low. Functional assessment 39/70. 9. Recreational drug use, she denies. She is not a smoker and occasionally drinks alcohol. According to the prescription monitoring system, the patient is filling appropriately. She is due to fill her medications this weekend. Her morphine mEq is 30 MME per day. There is a drug screen on the chart that is appropriate for her medications. PHYSICAL EXAMINATION: GENERAL: This is an alert and oriented, well-developed, well-nourished, obese 75-year-old female who appears her stated age, rating her current pain score at 3-5. HEENT: Normocephalic, atraumatic. Extraocular muscles are intact. She is wearing a mask. She is legally blind. EXTREMITIES: No clubbing, no cyanosis, 1+ edema in her lower left foot today. MUSCULOSKELETAL: She has tenderness in her right lower foot. No color changes noted today. Significant tenderness in her cervical spine and multiple joints from her arthritic issues. She uses a walker at all times. IMPRESSION: 1. History of reflex sympathetic dystrophy. 2. Chronic cervical radiculopathy with spondylosis. 3. Osteoarthritis affecting multiple joints. 4. Peripheral neuropathy. 5. Low back pain. 6. Idiopathic scoliosis. 7. Fibromyalgia. 8. Complex medical management utilizing scheduled opioid medications. PLAN: 1. We discussed treatment options with the patient today. The patient feels the medication is beneficial in controlling the majority of her pain. She does have her pain score today due to other issues going on with cardiac and osteoarthritis flares. She would like to continue her on OxyContin [address] Salvador Robbins will send this electronically for today and 4-week supply. 2. We will continue her on her Voltaren gel, which she does find beneficial with her arthritic joints that is quite diffuse. She recently has been using it on her hip, which she has found more problematic. She is wondering about a possible hip injection in the future. I explained that Dr. Robbins would likely inject her left hip when it becomes more painful on a daily basis. Right now, the patient is having intermittent discomfort in the left hip. Voltaren gel [address] [address] PAIN MANAGEMENT CONSULTATION Name: SABIHA CASTELLANOS Room #: REG [facility] Deshaun.#: [id number] Admission: 11/22/20 Attend Phys: Ginger Mats Discharge: Date of : 47 Report #: [id number] gram 2 grams 4 times a day, #90 with 2 additional refills was sent to [facility]. 3. The patient will return again in 2 months. Time spent with the patient in consultation, reviewing clinical notes and physician reports, physical examination and correlation of findings and medical documentation to determine possible treatment options, 14 minutes. Time spent preparing for appointment, reviewing prescription monitoring system, reviewing previous records and proposed treatment options, reviewing current medications, 5 minutes. Time spent preparing and sending electronic prescriptions with collaborating physician, Dr. Salvador Robbins, documentation of visit and plan of treatment 5 minutes. Total time spent 22 minutes. <ELECTRONICALLY SIGNED> By: Ginger Mast 11/24/20 0807 1320 [id number] Ginger Mast /nt
== END ==
LOC: PAIN 08:39
PROVIDERS: ATTEND Clinical Nurse Specialist Adult Health
DX: M47.22 Other spondylosis with radiculopathy, cervical region (principal); M19.90 Unspecified osteoarthritis, unspecified site; G62.9 Polyneuropathy, unspecified; M79.7 Fibromyalgia; Z79.891 Long term (current) use of opiate analgesic; Z79.899 Other long term (current) drug therapy

== ENCOUNTER → 2021-01-25 | Outpatient (CLI) | payer OTHER ==
[~2021-01-25] VITALS: Ht 154.9 cm; Wt 67.1 kg
[2021-01-25 10:49] VITALS: BP 140/79
--- NOTE | 2021-01-25 11:11 | NUR ---
Pain Clinic Assessment: 1. History of Osteoarthritis: B/L HIPS, FEET, SPINE KNEES, SHOULDERS, ELBOW, HANDS History of Rheumatoid Arthritis: DENIES 2. Height: 5 ft. 1 in. 154.9 cm. Weight: 148.0 lb. oz. 67.132 kg. Patient's BMI: 28.0 3. Vital Signs: BP: 140/79 Pulse: 72 Resp: 20 Temp: 02 Sat: 96 ECG Mon: 4. Pain Intensity: 3 WITH MEDS; SOME DAYS 9 5. Fall Risk: Dizziness: Y Needs help standing or walking: N Fallen in the last 3 months: N Fall risk comments: PT IS BLIND USES WALKER 6. Patient on Blood Thinner: None 7. History of Hypertension: Y 8. Opioid Therapy greater than 6 weeks: Y Opiate Contract Signed: 11/03/15 9. Risk Assessment Tool Provided: LOW RISK-0 10. Functional Assessment Tool: 11. Recreational Drug Use: Never Drug Type: Tobacco Use: Never Smoker Tobacco Type: Amount or Packs/day: How Many Years: Alcohol Use: No Frequency: Quant:
== END ==
LOC: PAIN 07:14
PROVIDERS: ATTEND Clinical Nurse Specialist Adult Health
DX: G89.4 Chronic pain syndrome (principal); M47.22 Other spondylosis with radiculopathy, cervical region; M25.552 Pain in left hip; G62.9 Polyneuropathy, unspecified; M79.661 Pain in right lower leg; M79.662 Pain in left lower leg; M19.09 Primary osteoarthritis, other specified site; M79.7 Fibromyalgia; M41.20 Other idiopathic scoliosis, site unspecified; Z88.6 Allergy status to analgesic agent; Z88.8 Allergy status to other drugs, medicaments and biological substances; Z79.84 Long term (current) use of oral hypoglycemic drugs; Z79.899 Other long term (current) drug therapy

== ENCOUNTER → 2021-03-28 | Outpatient (CLI) | payer OTHER ==
[~2021-03-28] VITALS: Ht 154.9 cm; Wt 64.9 kg
[2021-03-28 11:05] VITALS: BP 151/92
--- NOTE | 2021-03-28 11:12 | NUR ---
Pain Clinic Assessment: 1. History of Osteoarthritis: B/L HIPS, FEET, SPINE KNEES, SHOULDERS, ELBOW, HANDS History of Rheumatoid Arthritis: DENIES 2. Height: 5 ft. 1 in. 154.9 cm. Weight: 143.0 lb. oz. 64.864 kg. Patient's BMI: 27.0 3. Vital Signs: BP: 151/92 Pulse: 72 Resp: 14 Temp: 02 Sat: 92 ECG Mon: 4. Pain Intensity: 3 WITH MEDS; 5-6 5. Fall Risk: Dizziness: N Needs help standing or walking: Y Fallen in the last 3 months: N Fall risk comments: PT IS BLIND USES WALKER 6. Patient on Blood Thinner: None 7. History of Hypertension: Y 8. Opioid Therapy greater than 6 weeks: Y Opiate Contract Signed: 11/03/15 9. Risk Assessment Tool Provided: LOW RISK-0 10. Functional Assessment Tool: 11. Recreational Drug Use: Never Drug Type: Tobacco Use: Never Smoker Tobacco Type: Amount or Packs/day: How Many Years: Alcohol Use: No Frequency: Quant:
== END ==
LOC: PAIN 08:20
PROVIDERS: ATTEND Clinical Nurse Specialist Adult Health
DX: M47.22 Other spondylosis with radiculopathy, cervical region (principal); M25.552 Pain in left hip; M19.90 Unspecified osteoarthritis, unspecified site; G62.9 Polyneuropathy, unspecified; M79.7 Fibromyalgia; M10.9 Gout, unspecified; Z88.6 Allergy status to analgesic agent; Z88.8 Allergy status to other drugs, medicaments and biological substances; Z79.84 Long term (current) use of oral hypoglycemic drugs; Z79.899 Other long term (current) drug therapy